=== PATIENT | male | born 1960 | race Caucasian/White ===

== ENCOUNTER 2017-08-13 15:19 | Emergency (ER) | payer BC, SELFPAY ==
[2017-08-13 15:19] VITALS: BP 150/80; PULSE 66; RESP 16; TEMP 36.5; O2SAT 97; BMI 31.6
--- NOTE | 2017-08-13 15:38 | RAD_ITS ---
STUDY: X-RAY - LEFT ANKLE REASON FOR EXAM: Male, 56 years old. Twisted ankle while working in yard TECHNIQUE: 3 view(s) of the ankle. COMPARISON: None. FINDINGS: Normal visualized distal tibia and fibula. Normal medial and lateral malleoli. Normal tibiotalar articulation and ankle mortise. Normal visualized talus and calcaneus. The visualized subtalar, talonavicular, calcaneocuboid and tarsal articulations are normal. The soft tissue structures are unremarkable. RAD/Ankle min 3 Views IMPRESSION: No acute osseous injury is evident. Electronically Signed: Hayden Kauffman MD at 16:16 EDT Tel , Service support ,
--- NOTE | 2017-08-13 15:39 | RAD_ITS ---
STUDY: X-RAY - LEFT TIBIA AND FIBULA REASON FOR EXAM: Male, 56 years old. Twisted ankle TECHNIQUE: 2 view(s) of the tibia and fibula were obtained. COMPARISON: None. FINDINGS: Normal visualized tibia. Normal visualized fibula. Distal tibia and fibula are excluded by collimation. Soft tissue calcifications. RAD/Tibia & Fibula 2 Views IMPRESSION: No acute osseous injury is visible. Electronically Signed: Hayden Kauffman MD at 16:16 EDT Tel , Service support ,
--- NOTE | 2017-08-13 15:42 | ED.DCSUM_ITS ---
- ER Visit Summary Date of Service: 08/13/17 Chief Complaint: [] Left ankle pain History of Present Illness: The patient is a 56 M [] Complaining of left ankle pain after mechanical fall while working in the yard. Reports hearing a pop. Reports inability to ambulate after the injury. Reports previous history of multiple sprained ankles in the past. Physical Examination: [] Afebrile, vital signs stable. 56-year-old male no acute distress. Examination of the left lower extremity shows swelling over the lateral malleolus with tenderness to palpation. There is also tenderness and deformity to the left distal fibula. Patient does report a previous fracture in that area. Neurovascularly intact distally. Test Results: [] Left ankle x-rays: Negative Left tibia/fibula x-rays: Negative Emergency Department Course and Treatment: [] Patient presented with his own crutches. He was provided with an Aircast. He reports taking Avapro from prior to arrival and did not want analgesia. He was instructed to ice and elevate and remain nonweightbearing if he has continued pain. He was encouraged to follow-up with an orthopedic surgeon. Treatment Plan: [] Follow-up with orthopedic surgery. Disposition: [] Discharge, stable. Impression: [] Left ankle sprain This note was generated with [employer] dictation software. It may contain incorrect words, spelling, and punctuation that were not noted in review of the chart prior to signing ED Disposition - Plan for ED Patient: Chief Complaint: Lower Extremity Injury Referrals: Kb Sears MD [Primary Care Provider] -
--- NOTE | 2017-08-13 17:02 | ED.DEP ---
ED Disposition - Plan for ED Patient: Disposition: Home or Assisted Living Chief Complaint: Lower Extremity Injury Instructions: ED Sprain Ankle W X Ray Referrals: Kb Sears MD [Primary Care Provider] -
[2017-08-13 17:24] VITALS: RESP 16
== END 2017-08-13 17:25 | disposition home or self-care (01) ==
PROVIDERS: Emergency Provider Emergency Medicine; Family Provider Family Medicine; PCP Family Medicine
DX: S93.402A Sprain of unspecified ligament of left ankle, initial encounter (principal); W19.XXXA Unspecified fall, initial encounter; Y93.9 Activity, unspecified; Y92.096 Garden or yard of other non-institutional residence as the place of occurrence of the external cause; E11.9 Type 2 diabetes mellitus without complications; F32.9 Major depressive disorder, single episode, unspecified; Z79.84 Long term (current) use of oral hypoglycemic drugs; Z79.899 Other long term (current) drug therapy
CPT/HCPCS: 73590; 73610; 99283

== ENCOUNTER → 2017-12-06 08:15 | Outpatient (CLI) | payer BC, SELFPAY | PROVIDERS: Family Provider Family Medicine; PCP Family Medicine; Visit Provider Family Medicine | DX: R13.10 Dysphagia, unspecified (principal) | CPT/HCPCS: 74220 ==

== ENCOUNTER → 2017-12-08 09:38 | Outpatient (CLI) | payer BC, SELFPAY ==
[2017-12-08 10:03] LABS: Absolute Lymphocyte Count 1.42 X10^3/ul (0.83-4.51); Absolute Neutrophil Count 4.8 X10^3/uL (2.0-7.7); Basophil# 0.03 X10^3/uL; Basophil% 0.4 % (0-1); Eosinophil# 0.14 X10^3/uL; Hematocrit 45.6 % (40-54); Hemoglobin 14.9 g/dl (13.0-16.5); Lymphocyte # 1.42 X10^3/ul (4.0); Lymphocyte % 20.5 % (19-41); Mean Corp Hgb Conc 32.7 g/gl (32-36); Mean Corpuscular Hgb 27.1 pg (27.0-32.0); Mean Corpuscular Volume 82.9 fL (80-94); Mean Platelet Vol. 10.2 fl (6.2-12.0); Monocyte# 0.52 X10^3/uL; Monocyte% 7.5 % (0-10); Neutrophil # 4.81 X10^3/uL (2.7-7.7); Neutrophil % 69.5 % (47-70); Platelet Count 209 K/mm3 (150-450); RBC Distribution Width CV 13.8 % (11.6-14.6); RBC Distribution Width SD 41.6 fl (35.1-43.9); White Blood Count 6.9 K/mm3 (4.4-11.0)
[2017-12-08 10:04] LABS: POSITIVE COUNT NO; POSITIVE DIFFERENTIAL NO; POSITIVE MORPHOLOGY NO
[2017-12-08 10:25] LABS: AST(SGOT) 21 U/L (15-37); Alanine Aminotransfer ALT/SGPT 32 U/L (16-61); Alkaline Phosphatase 48 U/L (45-117); Anion Gap 10 (5-15); BUN 11 mg/dL (7-18); BUN/Creat Ratio 9.2 RATIO (10-20); Calcium,Total 8.9 mg/dL (8.5-10.1); Chloride 103 mmol/L (98-107); Cholesterol 203 mg/dL (200); Creatinine, Serum 1.19 mg/dL (0.70-1.30); EST Glomerular Filtration Rate 67 mL/min (>60); Est Glom Filt Rate - Afr Amer 81 mL/min (>60); Glucose 99 mg/dL (74-106); High Density Lipoprotein 73 mg/dL; Sodium Level 140 mmol/L (136-145); Thyroid Stim Hormone (TSH) 2.18 uIU/mL (0.358-3.74); Triglycerides 70 mg/dL; Very Low Density Lipoprotein 14 mg/dL (5-40)
[2017-12-08 10:32] LABS: Hemoglobin A1c 6.3 % (4.2-6.3)
== END ==
PROVIDERS: Family Provider Family Medicine; PCP Family Medicine; Visit Provider Family Medicine
DX: Z00.00 Encounter for general adult medical examination without abnormal findings (principal); R13.10 Dysphagia, unspecified
CPT/HCPCS: 80053; 80061; 83036; 84443; 85025

== ENCOUNTER → 2018-03-13 08:38 | Outpatient (CLI) | payer BC, SELFPAY ==
[2017-09-30 09:10] VITALS: BMI 32.4
--- NOTE | 2018-03-13 08:42 | RAD_ITS ---
STUDY: X-RAY - LEFT ANKLE REASON FOR EXAM: Male, 57 years old. Pain TECHNIQUE: 3 view(s) of the ankle. COMPARISON: 08/13/2017 FINDINGS: Medial and lateral malleolus with slight cortical irregularity which may represent prior injury without evidence of an acute fracture. There is a minimal plantar spur. There is a small osteophyte suggested anterior to the tibia on the lateral view partially visualized on prior study. Normal medial and lateral malleoli. Normal tibiotalar articulation and ankle mortise. Normal visualized talus . The visualized subtalar, talonavicular, calcaneocuboid and tarsal articulations are normal. The soft tissue structures are unremarkable. RAD/Ankle min 3 Views IMPRESSION: Degenerative change. Possible remote injury of the medial and lateral malleolus. No evidence of an acute fracture. Electronically Signed: Nasima Nguyen MD at 16:49 EST Tel , Service support ,
== END ==
PROVIDERS: Family Provider Family Medicine; PCP Family Medicine; Referring Provider Family Medicine; Visit Provider Family Medicine
DX: M25.572 Pain in left ankle and joints of left foot (principal)
CPT/HCPCS: 73610

== ENCOUNTER → 2018-03-13 08:59 | Outpatient (CLI) | payer BC, SELFPAY ==
[2017-09-30 09:10] VITALS: BMI 32.4
== END ==
PROVIDERS: Family Provider Family Medicine; PCP Family Medicine; Referring Provider Family Medicine; Visit Provider Family Medicine
DX: M25.572 Pain in left ankle and joints of left foot (principal)

== ENCOUNTER → 2018-11-10 | Outpatient (CLI) | payer BC, SELFPAY ==
[2018-11-10 09:40] VITALS: BMI 33.9
--- NOTE | 2018-11-10 10:24 | RAD_ITS ---
STUDY: X-RAY CHEST REASON FOR EXAM: Male, 58 years old. Shortness of breath for several months. TECHNIQUE: 2 views COMPARISON: Prior chest radiograph of July 02, 2010 FINDINGS: The lungs are clear and expanded. There is no demonstrated pleural abnormality. Normal size heart. Normal mediastinum and priscilla. Normal visualized pulmonary arteries. There is atherosclerotic calcification of the aortic arch. Normal visualized thoracic spine. Small plate and screw hardware projects to the right of midline at the first thoracic spine level. Normal visualized ribs, clavicles, and shoulders. There is no demonstrated abnormality of the visualized soft tissue structures of the upper abdomen. RAD/Chest PA and Lateral IMPRESSION: Mild calcifications of the aortic arch. Otherwise normal chest without new consolidation, focal atelectasis, cardiomegaly or pleural effusion. Electronically Signed: Azul Roblero MD at 19:19 EDT , Service support ,
== END | disposition home or self-care (01) ==
LOC: RAD 10:22
PROVIDERS: Family Provider Family Medicine; PCP Family Medicine; Referring Provider Internal Medicine Cardiovascular Disease; Visit Provider Internal Medicine Cardiovascular Disease
DX: R06.00 Dyspnea, unspecified (principal)
CPT/HCPCS: 71046

== ENCOUNTER → 2018-11-22 | Outpatient (CLI) | payer BC, SELFPAY ==
[2018-11-10 09:40] VITALS: BMI 33.9
--- NOTE | 2018-11-22 13:08 | ART_ITS ---
Reason For Study: Pain in right leg Procedure A bilateral lower extremity continuous wave Doppler with analog waveform analysis,segmental pressures,and ankle brachial indexes without exercise. Left Segmental Pressures Left brachial= 145mmHg. Left posterior tibial artery = 171mmHg. Left dorsalis pedis artery = 177mmHg. Left digit = 103 mmHg. The left dorsalis pedis waveforms are triphasic. The left posterior tibial artery waveforms are triphasic. Right Segmental Pressures Right brachial= 144mmHg. Right posterior tibial artery = 178mmHg. Right dorsalis pedis artery = 162mmHg. Right digit = 89 mmHg. The right dorsalis pedis waveforms are triphasic. The right posterior tibial artery waveforms are triphasic. Indices The right ankle brachial index by the dorsalis pedis is 1.12. The right ankle brachial index by the posterior tibial artery is 1.23. The right digital-brachial index is 0.61. The left ankle brachial index by the dorsalis pedis is 1.22. The left ankle brachial index by the posterior tibial artery is 1.18. The left digital-brachial index is 0.71. Interpretation Summary Triphasic Doppler waveforms are noted at ankle level bilaterally. Pulse-volume recording waveform amplitudes appear satisfactory at low-thigh, calf, and ankle levels bilaterally, but diminished at digital level bilaterally. Resting ankle-brachial indices are normal bilaterally. The right digital- brachial index is mildly diminished. The left digital-brachial index is low-normal. Arterial flow appears to be normal to ankle level bilaterally. There is evidence of mild, distal, small-vessel arterial occlusive disease at digital level in the right lower extremity. Arterial flow appears relatively normal at digital level on the left. Ordering Physician: Sridhar Bejarano Referring Physician: Kb Sears MD Performed By: Danielle Wright RVT
== END | disposition home or self-care (01) ==
LOC: CVS 13:06
PROVIDERS: Family Provider Family Medicine; PCP Family Medicine; Referring Provider Physician Assistant; Visit Provider Physician Assistant
DX: M79.661 Pain in right lower leg (principal)
CPT/HCPCS: 93923

== ENCOUNTER → 2018-11-28 | Outpatient (CLI) | payer BC, SELFPAY ==
[2018-11-10 09:40] VITALS: BMI 33.9
--- NOTE | 2018-11-28 06:29 | ECHOCS_ITS ---
Reason For Study: DYSPNEA/SOB Procedure This was a 2D Doppler, Color Flow transthoracic echocardiogram. The study was technically difficult. Contrast injection was performed. Exam performed in department. Left Ventricle Normal LV size. Left ventricular systolic function is normal. The estimated ejection fraction is 60 %. Transmitral doppler flow suggestive of impaired relaxation of left ventricle. No regional wall motion abnormalities noted. Right Ventricle Normal RV size. Normal systolic function. Atria Normal left atrium. Normal right atrium. No doppler evidence for ASD. Bubble contrast study negative for right to left interatrial shunt. Mitral Valve There is no mitral annular calcification. Mild focal mitral valve calcification of the anterior leaflet. Equivocal mitral valve prolapse. Trivial mitral valve insufficiency. Tricuspid Valve Normal tricuspid valve. Trivial tricuspid valve insufficiency. Unable to estimate RV systolic pressure/pulmonary artery pressure due to technically difficult study. Aortic Valve Trisinus/trileaflet aortic valve. Normal aortic valve. Pulmonic Valve The pulmonic valve is not well visualized. Great Vessels Normal sized aortic root. Pericardium/Pleural No pericardial effusion. Medication Diluted definity 3ml given slow IV push to enhance endocardial definition. Performed a rapid injection of agitated mix of 9 cc saline and 1cc air to assess for atrial septal defect. MMode/2D Measurements & Calculations LVIDd: 4.8 cm IVSd: 0.91 cm Ao root diam: 3.2 cm LVIDs: 3.1 cm LVPWd: 0.95 cm RVDd: 3.8 cm FS: 36.4 % LAV(MOD-bp): 59.9 ml LVAd ap4: 37.4 cm2 SV(MOD-sp4): 79.8 ml LAV(MOD-bp) Indexed: 25.3 ml/m2 EDV(MOD-sp4): 128.3 ml LAV(MOD-sp2): 59.3 ml EDV(sp4-el): 135.0 ml LAV(MOD-sp4): 58.7 ml LVAs ap4: 20.3 cm2 ESV(MOD-sp4): 48.5 ml ESV(sp4-el): 47.8 ml EF(MOD-sp4): 62.2 % EF(sp4-el): 64.6 % SV(sp4-el): 87.2 ml LA A4 area: 20.8 cm2 LA dimension(2D): 4.2 cm RA A4 area: 17.2 cm2 Time Measurements MV dec time: 0.24 sec Doppler Measurements & Calculations MV E max dmitriy: 75.2 cm/sec Lat Peak E' Dmitriy: 13.1 cm/sec Med Peak E' Dmitriy: 10.2 cm/sec MV A max dmitriy: 82.9 cm/sec E/E' lat: 5.7 E/E' med: 7.3 MV E/A: 0.91 Ao V2 max: 135.3 cm/sec LV V1 max: 123.4 cm/sec PA V2 max: 103.1 cm/sec Ao max P.3 mmHg LV V1 max P.1 mmHg Interpretation Summary The study was technically difficult. Contrast injection was performed. Left ventricular systolic function is normal. The estimated ejection fraction is 60 %. Mild focal mitral valve calcification of the anterior leaflet. Equivocal mitral valve prolapse. Trivial mitral valve insufficiency. Trivial tricuspid valve insufficiency. Unable to estimate RV systolic pressure/pulmonary artery pressure due to technically difficult study. Transmitral doppler flow suggestive of impaired relaxation of left ventricle Ordering Physician: Kamille^Balaji^^^ Referring Physician: FANNIE LIGHT Performed By: Isa Garcia RDCS
--- NOTE | 2018-11-28 08:57 | STRESSREP_ITS ---
Stress Test Report Date: 11-28-18 Procedure: Pharmacologic stress nuclear imaging study Indications: Shortness of breath/dyspnea on exertion; abnormal ECG (left bundle branch block pattern history) Consent: Per the patient Procedure: The patient underwent pharmacologic (Regadenoson) evaluation with a peak heart rate of 88 beats per minute (54 %predicted maximal heart rate) and a peak blood pressure of 144/84 mmHg. The baseline ECG demonstrated normal sinus rhythm; nonspecific ST/T wave abnormality. The peak pharmacologic ECG demonstrated continued nonspecific ST segment abnormality. There were no cardiac dysrhythmias pretest, during pharmacologic infusion, or recovery. There was no complaint of chest discomfort during pharmacologic infusion or recovery. The examination was discontinued secondary to completion of protocol. Impression: 1. Pharmacologic (Regadenoson) evaluation 2. Peak pharmacologic ECG with continued nonspecific ST segment abnormality. 3. There were no cardiac dysrhythmias pretest, during pharmacologic infusion, or recovery. 4. Nuclear images pending Myocardial perfusion imaging study: Technique: The patient was injected with 14.8 millicuries of technetium 99m Cardiolite and subsequently rest SPECT Cardiolite nuclear imaging was obtained in the horizontal long, vertical long, and short axis views. The patient underwent pharmacologic (Regadenoson) evaluation with a peak heart rate of 88 beats per minute (54 % percent predicted maximal heart rate) and a peak blood pressure of 144/84 mmHg. The patient was injected with 44.8 millicuries of technetium 99m Cardiolite and subsequently stress SPECT Cardiolite nuclear imaging was obtained in the horizontal long, vertical long, and short axis views. A gated Cardiolite study at peak stress was obtained. Interpretation: Rest and stress SPECT Cardiolite nuclear imaging status post realignment, normalization, and attenuation correction demonstrate areas of gastrointestinal/tracer uptake near the inferior segments and an area of subtle diminished tracer uptake in the apical areas at rest which appear to improve and/or normalize following stress appearing compatible with shifting soft tissue attenuation/artifact and/or physiologic apical thinning. There is end systolic thickening and brightening. The gated Cardiolite study demonstrates myocardial thickening and inward wall motion. The reported LVEF is 62 %. Impression: 1. Rest and stress SPECT currently nuclear imaging demonstrate areas of subtle diminished tracer uptake in the apical areas at rest which appear to improve and/or normalize following stress appearing compatible shifting soft tissue attenuation/artifact and/or physiologic apical thinning with no myocardial perfusion changes considered diagnostic for associated stress-induced myocardial ischemia. 2. The gated Cardiolite study reports an LVEF of 62 %. This note was generated with [employer] software. It may contain incorrect words, spelling, and punctuation that were not noted in checking the note before signing.
== END | disposition home or self-care (01) ==
LOC: CVS 06:28
PROVIDERS: Family Provider Family Medicine; PCP Family Medicine; Referring Provider Internal Medicine Cardiovascular Disease; Visit Provider Internal Medicine Cardiovascular Disease
DX: I44.7 Left bundle-branch block, unspecified (principal); I34.1 Nonrheumatic mitral (valve) prolapse; E78.5 Hyperlipidemia, unspecified; R06.00 Dyspnea, unspecified
CPT/HCPCS: 78452; 93017; 93306; A9500; Q9957; A4216; C8929; J2785

== ENCOUNTER → 2019-03-15 10:14 | Outpatient (CLI) | payer BC, SELFPAY ==
[2018-11-10 09:40] VITALS: BMI 33.9
[2019-03-15 12:40] LABS: ALB/GLOB Ratio 1.1 RATIO (0.9-2.4); AST(SGOT) 28 U/L (15-37); Alanine Aminotransfer ALT/SGPT 49 U/L (16-61); Albumin, Serum 4.1 g/dL (3.2-5.0); Alkaline Phosphatase 50 U/L (45-117); Anion Gap 4 (5-15); BUN 13 mg/dL (7-18); BUN/Creat Ratio 11.5 RATIO (10-20); Chloride 103 mmol/L (98-107); Cholesterol 213 mg/dL (200); Creatinine, Serum 1.13 mg/dL (0.70-1.30); EST Glomerular Filtration Rate 71 mL/min (>60); Est Glom Filt Rate - Afr Amer 86 mL/min (>60); Globulin 3.6 g/dL (2.2-4.2); Glucose 97 mg/dL (74-106); High Density Lipoprotein 75 mg/dL; Potassium 4.1 mmol/L (3.5-5.1); Protein, Total 7.7 g/dL (6.4-8.2); Sodium Level 137 mmol/L (136-145); Triglycerides 121 mg/dL; Very Low Density Lipoprotein 24 mg/dL (5-40)
[2019-03-15 12:47] LABS: Hemoglobin A1c 6.4 % (4.2-6.3)
[2019-03-15 14:01] LABS: Microalbumin,Random Urine 5.3 mg/L (NO RANGE EST.); Microalbumin:Creatinine Ratio 3.5 mg/g CRE (<30 mg/g CRE)
== END ==
PROVIDERS: Family Provider Family Medicine; PCP Family Medicine; Referring Provider Family Medicine; Visit Provider Family Medicine
DX: E11.9 Type 2 diabetes mellitus without complications (principal)
CPT/HCPCS: 36415; 80053; 80061; 82043; 82570; 83036

== ENCOUNTER → 2019-07-04 | Outpatient (CLI) | payer BC, SELFPAY ==
[2018-11-10 09:40] VITALS: BMI 33.9
[2019-07-04 17:08] LABS: Cholesterol 201 mg/dL (200); High Density Lipoprotein 71 mg/dL; Triglycerides 66 mg/dL; Very Low Density Lipoprotein 13 mg/dL (5-40)
== END | disposition home or self-care (01) ==
LOC: LABSPEC 16:39
PROVIDERS: PCP Family Medicine; Referring Provider Family Medicine; Visit Provider Family Medicine
DX: E78.5 Hyperlipidemia, unspecified (principal)
CPT/HCPCS: 80061

== ENCOUNTER 2019-12-12 21:08 | Emergency (ER) | payer BC, SELFPAY ==
[2019-11-12 09:33] VITALS: BMI 33.1
[2019-12-12 21:09] VITALS: BP 156/89; PULSE 84; RESP 16; TEMP 36.2; O2SAT 98; BMI 32.3
--- NOTE | 2019-12-12 22:27 | ED.DCSUM_ITS ---
- ER Visit Summary Date of Service: 12/12/19 Chief Complaint: Laceration left forearm] History of Present Illness: The patient is a 59 M [presents to the emergency department after lacerating his left forearm approximately 9 PM. Patient states that he was working with a right angle drill when it got caught in the wood and he dropped it which caused it to fall and land on his left forearm. Patient is right-hand dominant. Patient is up-to-date on tetanus. Patient was not sure if he needs stitches.] Physical Examination: [Left forearm-patient has a 3 cm vertical laceration over the mid forearm that is into the subcutaneous tissues. No active bleeding at this time. He is neurovascular intact distally. He has normal range of motion at the wrist and all digits. No foreign bodies noted within the wound.] Test Results: [None indicated] Emergency Department Course and Treatment: [Laceration repair-wound sterilely draped and prepped. Wound anesthetized locally with 1% lidocaine total of 4 cc. Wound cleansed with Shur-Clens and irrigated with copious saline. Using 4-0 nylon a total of 2 single ruptured sutures placed with good wound edge approximation. Patient tolerated procedure well. Clean dressing applied.] Treatment Plan: [Patient advised to follow-up with primary care physician in 10 days for suture removal. Patient advised to return if worsening pain, redness, swelling, purulent drainage, or condition should worsen anyway.] Disposition: [Discharged home in stable condition] Impression: [Left forearm laceration 3 cm-simple repair] This note was generated with [employer] dictation software. It may contain incorrect words, spelling, and punctuation that were not noted in review of the chart prior to signing ED Disposition - Plan for ED Patient: Referrals: Kb Sears MD [Primary Care Provider] -
[2019-12-12 22:28] VITALS: BP 161/71; PULSE 74; RESP 17; O2SAT 96
--- NOTE | 2019-12-12 22:29 | ED.DEP ---
ED Disposition - Plan for ED Patient: Instructions: ED Laceration Ext Sutr Stap Tape Referrals: Kb Sears MD [Primary Care Provider] - 10 Day for suture removal
== END 2019-12-12 22:33 | disposition home or self-care (01) ==
LOC: ED 22:30
PROVIDERS: Emergency Provider Emergency Medicine; PCP Family Medicine
DX: S51.812A Laceration without foreign body of left forearm, initial encounter (principal); W29.8XXA Contact with other powered hand tools and household machinery, initial encounter; Y93.9 Activity, unspecified; Y92.9 Unspecified place or not applicable; E11.9 Type 2 diabetes mellitus without complications; Z79.84 Long term (current) use of oral hypoglycemic drugs
CPT/HCPCS: 12002; 99282

== ENCOUNTER → 2019-12-14 | Outpatient (CLI) | payer BC, SELFPAY ==
[2019-12-12 21:09] VITALS: BMI 32.3
[2019-12-14 10:05] LABS: ALB/GLOB Ratio 1.1 RATIO (0.9-2.4); AST(SGOT) 27 U/L (15-37); Alanine Aminotransfer ALT/SGPT 38 U/L (16-61); Albumin, Serum 4.1 g/dL (3.2-5.0); Alkaline Phosphatase 50 U/L (45-117); Anion Gap 5 (5-15); BUN 13 mg/dL (7-18); Calcium,Total 9.2 mg/dL (8.5-10.1); Chloride 105 mmol/L (98-107); Cholesterol 206 mg/dL (200); Creatinine, Serum 1.18 mg/dL (0.70-1.30); EST Glomerular Filtration Rate 67 mL/min (>60); Est Glom Filt Rate - Afr Amer 81 mL/min (>60); Globulin 3.8 g/dL (2.2-4.2); Glucose 106 mg/dL (74-106); High Density Lipoprotein 74 mg/dL; Protein, Total 7.9 g/dL (6.4-8.2); Sodium Level 139 mmol/L (136-145); Triglycerides 94 mg/dL; Very Low Density Lipoprotein 19 mg/dL (5-40)
[2019-12-14 10:11] LABS: Hemoglobin A1c 6.1 % (3.8-5.6)
== END | disposition home or self-care (01) ==
LOC: LABSPEC 09:38
PROVIDERS: PCP Family Medicine; Referring Provider Family Medicine; Visit Provider Family Medicine
DX: E11.9 Type 2 diabetes mellitus without complications (principal)
CPT/HCPCS: 80053; 80061; 83036

== ENCOUNTER 2020-07-25 06:29 | Day surgery (SDC) | payer OTHER, SELFPAY ==
[2020-07-25] VITALS (7 sets, daily range): BP systolic 121–135; BP diastolic 67–86; PULSE 57–70; RESP 16–18; TEMP 35.7–36.3; O2SAT 96–100; BMI 33.4
--- NOTE | 2020-07-25 06:48 | PCM.HP.STD ---
Problem List (1) Personal history of colonic polyps Status: Acute History of Present Illness Date of Admission: 07/25/20 The patient is a 59 year old M who presents for a colonoscopy today. He presents via open access. Has a personal history of colon polyps. He denies bright red blood per rectum or melena. No unexpected weight change. He has avoided COVID-19. Past Medical History Past Medical History (Chronic Problems): Chronic Problems (Last Reviewed 11/12/19 @ 09:36 by Una Sheets) Type 2 diabetes mellitus (Chronic) Nonrheumatic mitral (valve) prolapse (Chronic) Hyperlipidemia (Chronic) Medical History: Medical History (Last Reviewed 11/12/19 @ 09:36 by Una Sheets) Type 2 diabetes mellitus (Chronic) E11.9 LBBB (left bundle branch block) (Acute) I44.7 Nonrheumatic mitral (valve) prolapse (Chronic) I34.1 Hyperlipidemia (Chronic) E78.5 GERD (gastroesophageal reflux disease) K21.9 Allergies hydrocodone bitartrate [From Vicodin] Allergy (Verified 07/25/20 06:45) Swelling oxycodone HCl [From Percocet] Allergy (Verified 07/25/20 06:45) Other minocycline Adverse Reaction (Unknown, Verified 07/25/20 06:45) Unknown Home Medications: Ambulatory Orders Medication Instructions Recorded Cetirizine HCl [Zyrtec] 10 mg PO DAILY 08/13/17 Escitalopram Oxalate [Lexapro] 5 mg PO DAILY 08/13/17 multivitamin 1 tab PO QDAY 09/28/17 metformin 500 mg tablet 500 mg PO BID tab 11/10/18 Cholecalciferol (Vitamin D3) 25 mcg PO DAILY 07/22/20 [Vitamin D3] Surgical History: Surgical History (Last Reviewed 11/12/19 @ 09:36 by Una Sheets) History of inguinal hernia repair Z98.890, Z87.19 History of shoulder surgery Z98.890 History of spinal surgery Z98.890 History of vasectomy Z98.52 Smoking Status: Never smoker Tobacco Use: Non-smoker Review of Systems Constitutional: Denies: Fever Cardiovascular: Denies: Chest Pain Respiratory: Denies: Cough Gastrointestinal: Denies: Abdominal Pain, Melena Endocrine: Denies: Change in Body Habitus VTE Information - Inpt Only VTE Present on Admission: No - Physical Exam Vitals/I&O's: Body Mass Index (BMI) 32.3 General: Alert, Oriented x3, Cooperative, No apparent distress Oral: Moist Mucosa Lungs: Clear to auscultation, Normal air movement Cardiovascular: Regular rate, Regular Rhythm Abdomen: Soft, Non Tender Psych/Mental Status: Normal Affect Microbiology Past 72 Hours 07/24/20 12:15 Interface Orders SARS-CoV-2 Antigen (Rapid) - Final Assessment/Plan All Active Problems (Last Reviewed 11/12/19 @ 09:36 by Una Sheets) Personal history of colonic polyps (Acute) LBBB (left bundle branch block) (Acute) I recommended the patient a colonoscopy with possible biopsy or polypectomy as indicated. As noted he is presenting via open access. He is aware of the technique, benefit, risk, alternatives. He has had an opportunity to ask and have questions answered. We will proceed as noted. Chavez Maradiaga M.D., F.A.C.S.
[2020-07-25] MEDS: Lactated Ringers 1,000 ML 100 ML IV (07:14)
--- NOTE | 2020-07-25 07:30 | COLBX_PTH ---
PATIENT: ARSH ASIF LOC: EN U#:[id number] AGE/SX: 59/M ROOM: RE07/25/[address]: Dr. Chavez Maradiaga MD : 1960 BED: DIS: 07/25/2020 SPEC #: [id number] RECD: 07/25/20 12:08 STATUS: PASQUALE BECKKeith #: [id number] MONICA: 07/25/20 07:[address]: Chavez Maradiaga DEPT: SURGICAL PATHOLOGY RECD BY: Nicolasa Doll ENTERED: 07/25/20 12:54 SP TYPE: COLON BX OTHR DR: Dr. Kb Sears MD Tissues: Transverse colon Procedures: Surgery Specimen Level IV HEADER OPERATION: Colonoscopy ? open access (MAC) PRE-OP DIAGNOSIS: Colonic polyps TISSUE SUBMITTED: Distal transverse polyp MICROSCOPIC DIAGNOSIS Distal transverse colon polyp, biopsy: Fragments of tubular adenoma. AM:vikki 07/28/2020 MICROSCOPIC DESCRIPTION Slides are reviewed. GROSS DESCRIPTION Received in fixative is one container labeled with the patient's name and designated distal transverse polyp. The specimen consists of two irregular fragments of light wang soft tissue that in aggregate measure 0.6 x 0.5 x 0.1 cm. The specimen is totally submitted in one cassette. / SJ:vikki 07/25/20 TC:5 CPT: 35310
[2020-07-25 07:40] LABS: Bedside Glucose 113 mg/dL (70-110)
--- NOTE | 2020-07-25 08:01 | OP.CCLET_ITS ---
07/25/2020 Kb Sears [address] [place] [address] Re : Colonoscopy procedure for Zak Kellogg Dear Dr. Sears This procedure was performed on Saturday, July 25, 2020. My impressions and recommendations are as follows: Impressions : - Hemorrhoids found on perianal exam. - One 5 mm polyp in the distal transverse colon, removed with a cold biopsy forceps. Resected and retrieved. - Diverticulosis in the sigmoid colon. Recommendations : - Discharge patient to home. - Resume previous diet. - Continue present medications. - Repeat colonoscopy in 5 years for surveillance based on pathology results. - Telephone my office for pathology results in 1 week. My findings are described in the full procedure note, which is enclosed. If I can be of further assistance, please feel free to contact me at Doctor phone number(s): Work: . Sincerely, Chavez Maradiaga MD 07/25/2020 8:01:04 AM This report has been signed electronically.
--- NOTE | 2020-07-25 08:01 | OP.COLON_ITS ---
Patient Name: Zak Kellogg Procedure Date: 07/25/2020 7:33 AM Date of : 1960 Age: 59 Procedure: Colonoscopy Indications: High risk colon cancer surveillance: Personal history of colonic polyps Providers: Chavez Maradiaga MD Referring MD: Kb Sears Medicines: See the Anesthesia note for documentation of the administered medications Patient Profile: Last Colonoscopy: 5 years ago. Complications: No immediate complications. Procedure: Pre-Anesthesia Assessment: - Prior to the procedure, a History and Physical was performed, and patient medications and allergies were reviewed. The patient's tolerance of previous anesthesia was also reviewed. The risks and benefits of the procedure and the sedation options and risks were discussed with the patient. All questions were answered, and informed consent was obtained. Prior Anticoagulants: The patient has taken no previous anticoagulant or antiplatelet agents. ASA Grade Assessment: II - A patient with mild systemic disease. After reviewing the risks and benefits, the patient was deemed in satisfactory condition to undergo the procedure. After I obtained informed consent, the scope was passed under direct vision. Throughout the procedure, the patient's blood pressure, pulse, and oxygen saturations were monitored continuously. The adult colonoscope was introduced through the anus and advanced to the cecum, identified by appendiceal orifice and ileocecal valve. The colonoscopy was performed without difficulty. The patient tolerated the procedure well. The quality of the bowel preparation was good. The ileocecal valve and the appendiceal orifice were photographed. Scope In: 7:41:32 AM Scope Withdrawal Time 0 hours 9 minutes 10 seconds Scope Out: 7:56:24 AM Total Procedure Duration Time 0 hours 14 minutes 52 seconds Findings: Hemorrhoids were found on perianal exam. slightly enlarged. No mass A 5 mm polyp was found in the distal transverse colon. The polyp was sessile. The polyp was removed with a cold biopsy forceps. Resection and retrieval were complete. Scattered diverticula were found in the sigmoid colon. Impression: - Hemorrhoids found on perianal exam. - One 5 mm polyp in the distal transverse colon, removed with a cold biopsy forceps. Resected and retrieved. - Diverticulosis in the sigmoid colon. Recommendation: - Discharge patient to home. - Resume previous diet. - Continue present medications. - Repeat colonoscopy in 5 years for surveillance based on pathology results. - Telephone my office for pathology results in 1 week. Procedure Code(s): --- Professional --- 21352, Colonoscopy, flexible; with biopsy, single or multiple Diagnosis Code(s): --- Professional --- Z86.010, Personal history of colonic polyps K64.9, Unspecified hemorrhoids D12.3, Benign neoplasm of transverse colon (hepatic flexure or splenic flexure) K57.30, Diverticulosis of large intestine without perforation or abscess without bleeding CPT copyright 2017 [employer]. All rights reserved. The codes documented in this report are preliminary and upon director selection and administration review may be revised to meet current compliance requirements. Chavez Maradiaga MD 07/25/2020 8:01:04 AM This report has been signed electronically. Number of Addenda: 0 Note Initiated On: 07/25/2020 7:33 AM
== END 2020-07-25 08:45 | disposition home or self-care (01) ==
LOC: EN 06:29 → AC 06:30
PROVIDERS: PCP Family Medicine; Referring Provider Family Medicine; Visit Provider Surgery
PROC: 0DJD8ZZ Inspection of Lower Intestinal Tract, Via Natural or Artificial Opening Endoscopic (ICD-10-PCS; CPT 45378; principal; 2020-07-25 07:25)
DX: D12.3 Benign neoplasm of transverse colon (principal); K57.30 Diverticulosis of large intestine without perforation or abscess without bleeding; K64.9 Unspecified hemorrhoids; Z86.010 Personal history of colon polyps; K21.9 Gastro-esophageal reflux disease without esophagitis; F41.9 Anxiety disorder, unspecified; E11.9 Type 2 diabetes mellitus without complications; E78.5 Hyperlipidemia, unspecified; I34.1 Nonrheumatic mitral (valve) prolapse; I44.7 Left bundle-branch block, unspecified; Z98.1 Arthrodesis status; Z79.84 Long term (current) use of oral hypoglycemic drugs; Z79.899 Other long term (current) drug therapy
CPT/HCPCS: 45380; 82962; 87426; 88305; C9803; J7120; J2405

== ENCOUNTER → 2020-12-24 10:50 | Outpatient (CLI) | payer OTHER, SELFPAY ==
--- NOTE | 2020-12-24 10:54 | ART_ITS ---
Reason For Study: Pain of right anterior lower extremity Procedure A bilateral lower extremity continuous wave Doppler with analog waveform analysis,segmental pressures,and ankle brachial indexes with exercise. Left Segmental Pressures Left brachial= 146mmHg. Left posterior tibial artery = 171mmHg. Left dorsalis pedis artery = 166mmHg. Left digit = 136 mmHg. The left dorsalis pedis waveforms are triphasic. The left posterior tibial artery waveforms are triphasic. Right Segmental Pressures Right brachial= 147mmHg. Right posterior tibial artery = 179mmHg. Right dorsalis pedis artery = 180mmHg. Right digit = 106 mmHg. The right dorsalis pedis waveforms are triphasic. The right posterior tibial artery waveforms are triphasic. Indices The right ankle brachial index by the dorsalis pedis is 1.22. The right ankle brachial index by the posterior tibial artery is 1.22. The right digital-brachial index is 0.72. The right post exercise ankle brachial index is 1.10. The left ankle brachial index by the dorsalis pedis is 1.13. The left ankle brachial index by the posterior tibial artery is 1.16. The left digital-brachial index is 0.93. The left post exercise ankle brachial index is 1.18. VL/Ankle Brachial Index Interpretation Summary Triphasic Doppler waveforms are noted at ankle level bilaterally. Pulse-volume recordings appear satisfactory bilaterally. Resting ankle-brachial indices are normal bilaterally . Digital-brachial indices are normal bilaterally. The patient was ambulated on a treadmill for 5 minutes at 2 MPH and a 5% grade. Ankle pressures augmented bilaterally within 3 minutes following ce ssation of exercise, a normal physiological response. There is no evidence of significant arterial occlusive disease in the lower ext remities bilaterally. Ordering Physician: Kb Sears Referring Physician: Kb Sears Performed By: Danielle Wright RVT
== END ==
PROVIDERS: PCP Family Medicine; Referring Provider Family Medicine; Visit Provider Family Medicine
DX: M79.604 Pain in right leg (principal)
CPT/HCPCS: 93922

== ENCOUNTER → 2021-01-22 | Outpatient (CLI) | payer OTHER, SELFPAY ==
[2021-01-22 11:11] LABS: Absolute Lymphocyte Count 1.48 X10^3/uL (0.83-4.51); Absolute Neutrophil Count 4.4 X10^3/uL (2.0-7.7); Basophil# 0.04 X10^3/uL; Basophil% 0.6 % (0-1); Eosinophil# 0.11 X10^3/uL; Eosinophils% 1.7 % (0-5); Hematocrit 46.4 % (40-54); Lymphocyte # 1.48 X10^3/ul (0.83-4.51); Lymphocyte % 22.4 % (19-41); Mean Corp Hgb Conc 32.3 g/dL (32-36); Mean Corpuscular Hgb 26.5 pg (27.0-32.0); Mean Corpuscular Volume 81.8 fL (80-94); Mean Platelet Vol. 10.7 fl (6.2-12.0); Monocyte# 0.58 X10^3/uL; Monocyte% 8.8 % (0-10); NRBC Flagged by Analyzer 0 % (0-5); Neutrophil # 4.35 X10^3/uL (2.7-7.7); Neutrophil % 65.9 % (47-70); Platelet Count 271 K/mm3 (150-450); RBC Distribution Width CV 13.7 % (11.6-14.6); Red Blood Count 5.67 M/mm3 (4.6-6.2); White Blood Count 6.6 K/mm3 (4.4-11.0)
[2021-01-22 11:28] LABS: ALB/GLOB Ratio 1.1 RATIO (0.9-2.4); AST(SGOT) 28 U/L (15-37); Alanine Aminotransfer ALT/SGPT 46 U/L (16-61); Albumin, Serum 4.1 g/dL (3.2-5.0); Alkaline Phosphatase 51 U/L (45-117); Anion Gap 5 (5-15); BUN 14 mg/dL (7-18); BUN/Creat Ratio 11.9 RATIO (10-20); Calcium,Total 9.7 mg/dL (8.5-10.1); Chloride 101 mmol/L (98-107); Cholesterol 219 mg/dL (200); Creatinine, Serum 1.18 mg/dL (0.70-1.30); EST Glomerular Filtration Rate 67 mL/min (>60); Est Glom Filt Rate - Afr Amer 81 mL/min (>60); Globulin 3.9 g/dL (2.2-4.2); Glucose 106 mg/dL (74-106); High Density Lipoprotein 74 mg/dL; Potassium 4.1 mmol/L (3.5-5.1); Sodium Level 136 mmol/L (136-145); Triglycerides 105 mg/dL; Very Low Density Lipoprotein 21 mg/dL (5-40)
== END | disposition home or self-care (01) ==
LOC: LABSPEC 10:44
PROVIDERS: PCP Family Medicine; Visit Provider Family Medicine
DX: E11.9 Type 2 diabetes mellitus without complications (principal); M79.604 Pain in right leg
CPT/HCPCS: 80053; 80061; 85025

== ENCOUNTER → 2021-02-12 07:26 | Outpatient (CLI) | payer OTHER, SELFPAY ==
--- NOTE | 2021-02-12 07:41 | MRI_ITS ---
STUDY: MRI LOWER EXTREMITY RIGHT TIBIA/FIBULA WITH AND WITHOUT CONTRAST REASON FOR EXAM: Pain in lower right leg increasing with activity, palpable lump at the lateral aspect of the right lower leg for at least 2 years. TECHNIQUE: Standardized fat and water weighted pulse sequences were obtained in all 3 orthogonal planes, post contrast administration. IV 23ml Dotarem was administered for the contrast portion of the examination. COMPARISON: None. FINDINGS: Normal visualized tibia and fibula, without a periosteal, cortical or cancellous marrow abnormality. There is focal fat at the peripheral aspect of the peroneal muscles beneath the myocutaneous fascial plane corresponding to the skin markers (T1 axial images 1-17; T1 coronal images 11, 12). Otherwise, unremarkable visualized muscle groups of the lower leg without intramuscular edema. There is mild circumferential edema in the subcutis adipose space of the lower leg (inversion recovery axial images 8-26). There is no solid, cystic or lipomatous mass lesion of the subcutis adipose space. There is no abnormal contrast enhancement. MRI/Lower Ext No Joint W/WO Cont IMPRESSION: Focal fat at the peripheral aspect of the peroneal muscles beneath myocutaneous fascial plane corresponding to the skin markers. Mild circumferential edema in the subcutis adipose space of the lower leg. Electronically Signed: Patel Elias MD at 9:44 EST Tel , Service support ,
== END ==
PROVIDERS: PCP Family Medicine; Referring Provider Podiatrist; Visit Provider Podiatrist
DX: D49.2 Neoplasm of unspecified behavior of bone, soft tissue, and skin (principal)
CPT/HCPCS: 73720; A9575

== ENCOUNTER 2021-04-13 08:19 | Outpatient (CLI) | payer BC, SELFPAY ==
--- NOTE | 2021-04-13 08:34 | EKG12_ITS ---
Test Reason : PREOP Blood Pressure : / mmHG Vent. Rate : 063 BPM Atrial Rate : 063 BPM P-R Int : 234 ms QRS Dur : 092 ms QT Int : 414 ms P-R-T Axes : 044 -53 027 degrees QTc Int : 423 ms Sinus rhythm with 1st degree A-V block Left anterior fascicular block Abnormal ECG Poor R wave progression Confirmed by SHAHNAZ GRIFFIN, MOLLY ([id number]), general expeditor HEMANTH MARCELO ([id number]) on 04/14/2021 1:42:14 PM Referred By: Asim Armenta Confirmed By:MOLLY CHRISTIE MD
[2021-04-13 09:35] LABS: Hematocrit 43.4 % (40-54); Hemoglobin 14.4 g/dL (13.0-16.5); Mean Corp Hgb Conc 33.2 g/dL (32-36); Mean Corpuscular Hgb 27.1 pg (27.0-32.0); Mean Corpuscular Volume 81.7 fL (80-94); Mean Platelet Vol. 10.5 fl (6.2-12.0); Platelet Count 232 K/mm3 (150-450); RBC Distribution Width CV 13.8 % (11.6-14.6); RBC Distribution Width SD 40.9 fl (35.1-43.9); Red Blood Count 5.31 M/mm3 (4.6-6.2); White Blood Count 7.5 K/mm3 (4.4-11.0)
[2021-04-13 10:07] LABS: Anion Gap 6 (5-15); BUN 14 mg/dL (7-18); BUN/Creat Ratio 13.1 RATIO (10-20); Calcium,Total 9.1 mg/dL (8.5-10.1); Chloride 99 mmol/L (98-107); Creatinine, Serum 1.07 mg/dL (0.70-1.30); EST Glomerular Filtration Rate 75 mL/min (>60); Est Glom Filt Rate - Afr Amer 91 mL/min (>60); Glucose 172 mg/dL (74-106); Potassium 3.7 mmol/L (3.5-5.1); Sodium Level 136 mmol/L (136-145)
== END 2021-04-13 23:59 | disposition short-term general hospital (02) ==
LOC: PSN 08:21
PROVIDERS: PCP Family Medicine; Referring Provider Physician Assistant Surgical; Visit Provider Physician Assistant Surgical
DX: Z01.810 Encounter for preprocedural cardiovascular examination (principal)
CPT/HCPCS: 36415; 80048; 85027; 93005

== ENCOUNTER 2021-04-22 15:06 | Outpatient (CLI) | payer BC, SELFPAY ==
--- NOTE | 2021-04-22 | MASS_PTH ---
PATIENT: ZAK ASIF [facility] U#:[id number] AGE/SX: 60/M ROOM: RE04/22/[address]: Dr. Zak Andrew DO : 1960 BED: DIS: 04/22/2021 SPEC #: [id number] RECD: 04/22/21 14:54 STATUS: [place]QUALE REKeith #: [id number] MONICA: 04/22/21 00:[address]: Zak Andrew DEPT: SURGICAL PATHOLOGY RECD BY: Darrell Fernández ENTERED: 04/23/21 12:23 SP TYPE: Mass OTHR DR: Dr. Kb Sears MD [facility] Tissues: Leg, NOS Procedures: Surgery Specimen Level III HEADER OPERATION: Excision fatty tumor right leg, fasciotomy and decompression of sural nerve PRE-OP DIAGNOSIS: Injury right lower leg with tear and fascia TISSUE SUBMITTED: Fatty tumor right leg MICROSCOPIC DIAGNOSIS Tumor right leg, excision: Consistent with traumatic neuroma. SJ:vikki 04/24/2021 COMMENT Case has been reviewed in consultation with Dr. Yepez who concurs with the above diagnosis. IDC:AM MICROSCOPIC DESCRIPTION Slides are reviewed. GROSS DESCRIPTION Received is one container labeled with the patient's name and not further designated. The specimen consists of an irregular piece of wang-pink soft tissue measuring 2 x 1.5 x 0.5 cm. The entire specimen is submitted in one cassette. / JEFF:vikki 04/23/2021 TC:5 CPT: 30214
== END 2021-04-22 23:59 | disposition short-term general hospital (02) ==
LOC: LABSPEC 15:08
PROVIDERS: PCP Family Medicine; Visit Provider Orthopaedic Surgery
DX: S89.91XA Unspecified injury of right lower leg, initial encounter (principal)
CPT/HCPCS: 88304; 88305

== ENCOUNTER → 2021-09-24 | Outpatient (CLI) | payer BC, SELFPAY ==
[2021-09-24 10:53] LABS: Hemoglobin A1c 6.5 % (3.8-5.6)
[2021-09-24 11:06] LABS: Microalbumin,Random Urine 8.3 mg/L (NO RANGE EST.); Microalbumin:Creatinine Ratio 3.2 mg/g CRE (<30 mg/g CRE)
[2021-09-24 11:10] LABS: ALB/GLOB Ratio 1.1 RATIO (0.9-2.4); AST(SGOT) 25 U/L (15-37); Alanine Aminotransfer ALT/SGPT 41 U/L (16-61); Alkaline Phosphatase 52 U/L (45-117); Anion Gap 8 (5-15); BUN 15 mg/dL (7-18); BUN/Creat Ratio 13.3 RATIO (10-20); Calcium,Total 9.2 mg/dL (8.5-10.1); Chloride 101 mmol/L (98-107); Cholesterol 175 mg/dL (200); Creatinine, Serum 1.13 mg/dL (0.70-1.30); EST Glomerular Filtration Rate 70 mL/min (>60); Est Glom Filt Rate - Afr Amer 85 mL/min (>60); Globulin 3.5 g/dL (2.2-4.2); Glucose 112 mg/dL (74-106); High Density Lipoprotein 73 mg/dL; PSA,Total- Diagnostic 3.61 ng/mL (0.0-4.0); Potassium 3.9 mmol/L (3.5-5.1); Protein, Total 7.5 g/dL (6.4-8.2); Sodium Level 137 mmol/L (136-145); Triglycerides 96 mg/dL; Very Low Density Lipoprotein 19 mg/dL (5-40)
== END | disposition home or self-care (01) ==
LOC: LABSPEC 10:18
PROVIDERS: PCP Family Medicine; Visit Provider Family Medicine
DX: Z00.00 Encounter for general adult medical examination without abnormal findings (principal); E11.9 Type 2 diabetes mellitus without complications; I10 Essential (primary) hypertension
CPT/HCPCS: 80053; 80061; 82043; 82570; 83036; 84153

== ENCOUNTER 2022-03-05 07:16 | Outpatient (CLI) | payer BC, SELFPAY ==
--- NOTE | 2022-03-05 07:27 | MRI_ITS ---
EXAM: MR RIGHT LOWER EXTREMITY WITHOUT INTRAVENOUS CONTRAST, FOOT CLINICAL INDICATION: PLANTAR FASCIAL FIBROMATOSIS TECHNIQUE: Multiplanar and multisequence MR images of the right foot without intravenous contrast. This report was created using Canvas report Fastr technology. COMPARISON: None. FINDINGS: LIGAMENTS: MEDIAL COLLATERAL: Unremarkable. Intact. LATERAL COLLATERAL: Unremarkable. Intact. LISFRANC: Unremarkable. Intact. TENDONS: FLEXOR: Unremarkable. Intact. EXTENSOR: Unremarkable. Intact. PERONEAL: Unremarkable. Intact. TIBIALIS ANTERIOR: Unremarkable. Intact. TIBIALIS POSTERIOR: Unremarkable. Intact. MUSCLES: Unremarkable. No edema or myositis. FLUID: No organized fluid collections. PLANTAR FASCIA: Unremarkable. Intact. BONES/JOINTS: No marrow signal alterations. Normal forefoot alignment. No fracture. No joint effusion. OTHER SOFT TISSUES: Unremarkable. OTHER FINDINGS: No evidence for plantar fibroma or fibromatosis. Extensor and flexor are normal. Neurovascular structures are normal. Irregular soft tissue loss may represent a chronic ulcer along the medial aspect of the first digit. Correlate with physical exam findings. MRI/Lower Ext/No Jt/w/o IMPRESSION: No evidence for plantar fibroma or fibromatosis. No other significant internal derangement. Electronically Signed: Darin Barth MD at 4:06 EST ,
== END 2022-03-05 23:59 | disposition home or self-care (01) ==
PROVIDERS: PCP Family Medicine; Referring Provider Podiatrist; Visit Provider Podiatrist
DX: M72.2 Plantar fascial fibromatosis (principal)
CPT/HCPCS: 73718

== ENCOUNTER → 2022-10-22 | Outpatient (CLI) | payer BC, SELFPAY ==
[2022-10-22 10:52] LABS: Absolute Neutrophil Count 6.5 X10^3/uL (2.0-7.7); Basophil# 0.03 X10^3/uL; Basophil% 0.3 % (0-1); Eosinophil# 0.18 X10^3/uL; Eosinophils% 2.1 % (0-5); Lymphocyte % 16.1 % (19-41); Mean Corp Hgb Conc 32.6 g/dL (32-36); Mean Corpuscular Hgb 26.8 pg (27.0-32.0); Mean Corpuscular Volume 82.1 fL (80-94); Mean Platelet Vol. 9.8 fl (6.2-12.0); Monocyte# 0.61 X10^3/uL; NRBC Flagged by Analyzer 0 % (0-5); Neutrophil # 6.45 X10^3/uL (2.7-7.7); Neutrophil % 74.3 % (47-70); Platelet Count 248 K/mm3 (150-450); RBC Distribution Width CV 14.4 % (11.6-14.6); RBC Distribution Width SD 42.7 fl (35.1-43.9); White Blood Count 8.7 K/mm3 (4.4-11.0)
[2022-10-22 11:34] LABS: AST(SGOT) 20 U/L (15-37); Alanine Aminotransfer ALT/SGPT 38 U/L (16-61); Alkaline Phosphatase 58 U/L (45-117); Anion Gap 6 (5-15); BUN 18 mg/dL (7-18); BUN/Creat Ratio 17.1 RATIO (10-20); Calcium,Total 9.5 mg/dL (8.5-10.1); Chloride 101 mmol/L (98-107); Cholesterol 168 mg/dL (200); Creatinine, Serum 1.05 mg/dL (0.70-1.30); EST Glomerular Filtration Rate 76 mL/min (>60); Est Glom Filt Rate - Afr Amer 92 mL/min (>60); Globulin 3.9 g/dL (2.2-4.2); Glucose 105 mg/dL (74-106); High Density Lipoprotein 85 mg/dL; PSA,Total- Diagnostic 3.56 ng/mL (0.0-4.0); Potassium 4.4 mmol/L (3.5-5.1); Protein, Total 7.9 g/dL (6.4-8.2); Sodium Level 137 mmol/L (136-145); Thyroid Stim Hormone (TSH) 1.87 uIU/mL (0.358-3.74); Triglycerides 63 mg/dL; Very Low Density Lipoprotein 13 mg/dL (5-40)
== END | disposition home or self-care (01) ==
LOC: MFPLAB 09:33
PROVIDERS: PCP Family Medicine; Visit Provider Family Medicine
DX: Z12.5 Encounter for screening for malignant neoplasm of prostate (principal); E11.22 Type 2 diabetes mellitus with diabetic chronic kidney disease
CPT/HCPCS: 36415; 80053; 80061; 84153; 84443; 85025

== ENCOUNTER → 2023-02-08 | Outpatient (CLI) | payer BC, SELFPAY | END | disposition home or self-care (01) | LOC: SL 20:01 | PROVIDERS: PCP Family Medicine; Referring Provider Nurse Practitioner Gerontology; Visit Provider Nurse Practitioner Gerontology | DX: G47.10 Hypersomnia, unspecified (principal) | CPT/HCPCS: 95810 ==

== ENCOUNTER → 2023-02-21 | Outpatient (CLI) | payer BC, SELFPAY ==
--- NOTE | 2023-02-21 10:02 | ECHOD_ITS ---
Version 2 Reason For Study: Mitral Valve Prolapse Procedure This was a 2D Doppler, Color Flow transthoracic echocardiogram. Exam performed in department. Left Ventricle Normal LV size. Left ventricular systolic function is normal. The estimated ejection fraction is 55 %. Stage 1 diastolic dysfunction. No regional wall motion abnormalities noted. Right Ventricle Normal RV size. Normal systolic function. Mitral Valve Normal mitral valve. Tricuspid Valve Normal tricuspid valve. Mild tricuspid valve insufficiency. Pulmonary artery systolic pressure is 25 mmHg. Pulmonic Valve The pulmonic valve is not well visualized. Great Vessels Normal aortic root. The pulmonary artery is normal size. Inferior vena cava collapse with respiration. Pericardium/Pleural No pericardial effusion. MMode/2D Measurements & Calculations LVIDd: 4.8 cm IVSd: 0.95 cm Ao root diam: 3.1 cm LVIDs: 3.1 cm LVPWd: 0.92 cm LA dimension: 4.2 cm RVDd: 4.5 cm FS: 36.1 % LAV(MOD-bp): 59.9 ml LA A4 area: 20.2 cm2 RA A4 area: 18.1 cm2 LAV(MOD-bp) Indexed: 25.1 ml/m2 LAV(MOD-sp2): 66.4 ml LAV(MOD-sp4): 49.5 ml TAPSE: 2.0 cm Time Measurements MV dec time: 0.14 sec Doppler Measurements & Calculations MV E max dmitriy: 74.5 cm/sec Lat Peak E' Dmitriy: 12.9 cm/sec Med Peak E' Dmitriy: 10.2 cm/sec MV A max dmitriy: 92.3 cm/sec E/E' lat: 5.8 E/E' med: 7.3 MV E/A: 0.81 MV V2 max: 102.0 cm/sec MV P1/2t max dmitriy: 94.9 cm/sec Ao V2 max: 120.7 cm/sec MV max P.2 mmHg MV P1/2t: 52.8 msec Ao max P.8 mmHg MV V2 mean: 51.8 cm/sec MV dec slope: 526.5 cm/sec2 Ao V2 mean: 90.5 cm/sec MV mean P.3 mmHg Ao mean P.6 mmHg MV V2 VTI: 29.7 cm MVA(P1/2t): 4.2 cm2 Ao V2 VTI: 30.2 cm AV (velocity ratio): 0.85 LV V1 max: 105.1 cm/sec PA V2 max: 92.2 cm/sec TR max dmitriy: 232.2 cm/sec LV V1 max P.4 mmHg PA V2 mean: 68.3 cm/sec TR max P.6 mmHg LV V1 mean P.7 mmHg LV V1 mean: 77.7 cm/sec LV V1 VTI: 25.5 cm ECHO/Echo Complete Interpretation Summary Normal LV size. Left ventricular systolic function is normal. The estimated ejection fraction is 55 %. Stage 1 diastolic dysfunction. Pulmonary artery systolic pressure is 25 mmHg. Normal mitral valve. Ordering Physician: Minnie Little Referring Physician: Kb Sears MD Performed By: Antelmo Ruffin RCS
== END | disposition home or self-care (01) ==
PROVIDERS: PCP Family Medicine; Referring Provider Nurse Practitioner Gerontology; Visit Provider Nurse Practitioner Gerontology
DX: I34.1 Nonrheumatic mitral (valve) prolapse (principal)
CPT/HCPCS: 93306

== ENCOUNTER → 2023-04-25 | Outpatient (CLI) | payer BC, SELFPAY ==
[2023-04-25 10:20] LABS: Absolute Lymphocyte Count 1.56 X10^3/uL (0.83-4.51); Absolute Neutrophil Count 4.3 X10^3/uL (2.0-7.7); Basophil# 0.04 X10^3/uL; Basophil% 0.6 % (0-1); Eosinophil# 0.08 X10^3/uL; Eosinophils% 1.2 % (0-5); Hematocrit 45.3 % (40-54); Hemoglobin 14.6 g/dL (13.0-16.5); Lymphocyte # 1.56 X10^3/ul (0.83-4.51); Mean Corp Hgb Conc 32.2 g/dL (32-36); Mean Corpuscular Hgb 26.3 pg (27.0-32.0); Mean Corpuscular Volume 81.6 fL (80-94); Mean Platelet Vol. 10.4 fl (6.2-12.0); Monocyte# 0.53 X10^3/uL; Monocyte% 8.2 % (0-10); NRBC Flagged by Analyzer 0 % (0-5); Neutrophil # 4.27 X10^3/uL (2.7-7.7); Neutrophil % 65.7 % (47-70); Platelet Count 250 K/mm3 (150-450); RBC Distribution Width CV 13.8 % (11.6-14.6); RBC Distribution Width SD 40.5 fl (35.1-43.9); Red Blood Count 5.55 M/mm3 (4.6-6.2); White Blood Count 6.5 K/mm3 (4.4-11.0)
[2023-04-25 10:35] LABS: Microalbumin,Random Urine 8.2 mg/L (NO RANGE EST.); Microalbumin:Creatinine Ratio 3.7 mg/g CRE (<30 mg/g CRE)
[2023-04-25 10:40] LABS: ALB/GLOB Ratio 1.1 RATIO (0.9-2.4); AST(SGOT) 27 U/L (15-37); Alanine Aminotransfer ALT/SGPT 41 U/L (16-61); Albumin, Serum 3.9 g/dL (3.2-5.0); Alkaline Phosphatase 52 U/L (45-117); Anion Gap 4 (5-15); BUN 17 mg/dL (7-18); BUN/Creat Ratio 15.5 RATIO (10-20); Calcium,Total 9.4 mg/dL (8.5-10.1); Chloride 102 mmol/L (98-107); EST Glomerular Filtration Rate 72 mL/min (>60); Est Glom Filt Rate - Afr Amer 87 mL/min (>60); Globulin 3.6 g/dL (2.2-4.2); Glucose 131 mg/dL (74-106); Potassium 4.3 mmol/L (3.5-5.1); Protein, Total 7.5 g/dL (6.4-8.2); Sodium Level 135 mmol/L (136-145)
== END | disposition home or self-care (01) ==
LOC: MFPLAB 08:31
PROVIDERS: PCP Family Medicine; Visit Provider Family Medicine
DX: Q85.00 Neurofibromatosis, unspecified (principal); E11.22 Type 2 diabetes mellitus with diabetic chronic kidney disease; I10 Essential (primary) hypertension
CPT/HCPCS: 36415; 80053; 82043; 82570; 85025

== ENCOUNTER → 2024-04-09 | Outpatient (CLI) | payer BC, SELFPAY ==
[2024-04-09 10:52] LABS: Absolute Lymphocyte Count 1.76 X10^3/uL (0.83-4.51); Absolute Neutrophil Count 4.5 X10^3/uL (2.0-7.7); Basophil# 0.04 X10^3/uL; Basophil% 0.6 % (0-1); Eosinophils% 2.8 % (0-5); Hematocrit 43.2 % (40-54); Hemoglobin 14.2 g/dL (13.0-16.5); Lymphocyte # 1.76 X10^3/ul (0.83-4.51); Lymphocyte % 24.8 % (19-41); Mean Corp Hgb Conc 32.9 g/dL (32-36); Mean Corpuscular Hgb 26.7 pg (27.0-32.0); Mean Corpuscular Volume 81.4 fL (80-94); Mean Platelet Vol. 10.3 fl (6.2-12.0); Monocyte# 0.61 X10^3/uL; Monocyte% 8.6 % (0-10); NRBC Flagged by Analyzer 0 % (0-5); Neutrophil # 4.45 X10^3/uL (2.7-7.7); Neutrophil % 62.6 % (47-70); Platelet Count 249 K/mm3 (150-450); RBC Distribution Width CV 13.6 % (11.6-14.6); RBC Distribution Width SD 39.8 fl (35.1-43.9); Red Blood Count 5.31 M/mm3 (4.6-6.2); White Blood Count 7.1 K/mm3 (4.4-11.0)
[2024-04-09 11:06] LABS: ALB/GLOB Ratio 1.1 RATIO (0.9-2.4); AST(SGOT) 26 U/L (15-37); Alanine Aminotransfer ALT/SGPT 47 U/L (16-61); Albumin, Serum 4.1 g/dL (3.2-5.0); Alkaline Phosphatase 49 U/L (45-117); Anion Gap 6 (5-15); BUN 17 mg/dL (7-18); BUN/Creat Ratio 15.7 RATIO (10-20); Calcium,Total 9.5 mg/dL (8.5-10.1); Chloride 98 mmol/L (98-107); Cholesterol 173 mg/dL (200); Creatinine, Serum 1.08 mg/dL (0.70-1.30); EST Glomerular Filtration Rate 73 mL/min (>60); Est Glom Filt Rate - Afr Amer 89 mL/min (>60); Globulin 3.8 g/dL (2.2-4.2); Glucose 130 mg/dL (74-106); High Density Lipoprotein 78 mg/dL; Potassium 3.8 mmol/L (3.5-5.1); Protein, Total 7.9 g/dL (6.4-8.2); Sodium Level 134 mmol/L (136-145); Triglycerides 95 mg/dL; Very Low Density Lipoprotein 19 mg/dL (5-40)
[2024-04-09 11:55] LABS: Microalbumin,Random Urine 6.2 mg/L (NO RANGE EST.); Microalbumin:Creatinine Ratio 4.3 mg/g CRE (<30 mg/g CRE)
== END | disposition home or self-care (01) ==
LOC: MFPLAB 08:23
PROVIDERS: PCP Family Medicine; Referring Provider Family Medicine; Visit Provider Family Medicine
DX: F33.8 Other recurrent depressive disorders (principal); E11.22 Type 2 diabetes mellitus with diabetic chronic kidney disease
CPT/HCPCS: 36415; 80053; 80061; 82043; 82570; 85025

== ENCOUNTER → 2024-10-25 | Outpatient (CLI) | payer BC, SELFPAY ==
[2024-10-25 13:06] LABS: AST(SGOT) 29 U/L (<=37); Alanine Aminotransfer ALT/SGPT 33 U/L (<=46); Albumin, Serum 4.4 g/dL (3.4-4.8); Alkaline Phosphatase 49 U/L (40-129); Anion Gap 12 (5-15); BUN 15 mg/dL (4-19); BUN/Creat Ratio 13.2 RATIO (10-20); Calcium,Total 10.1 mg/dL (7.6-11.0); Carbon Dioxide 26.9 mmol/L (21.0-32.0); Chloride 97 mmol/L (98-108); Cholesterol 157 mg/dL (<=200); Globulin 3.0 g/dL (2.2-4.2); Glucose 117 mg/dL (70-99); Low Density Lipoprotein Calc. 67 mg/dL; PSA,Total- Diagnostic 2.87 ng/mL (0.00-4.00); Potassium 4.0 mmol/L (3.3-5.1); Triglycerides 88 mg/dL; Very Low Density Lipoprotein 18 mg/dL (5-40); cholesterol:hdl ratio screen 2.18
[2024-10-25 13:42] LABS: Creatinine, Urine (random) 163.00 mg/dL (39.00-259.00); Microalbumin,Random Urine < 12.0 mg/L (<20 mg/L)
== END | disposition home or self-care (01) ==
LOC: MFPLAB 09:51
PROVIDERS: PCP Family Medicine; Referring Provider Family Medicine; Visit Provider Family Medicine
DX: E11.22 Type 2 diabetes mellitus with diabetic chronic kidney disease (principal); N18.2 Chronic kidney disease, stage 2 (mild); Z12.5 Encounter for screening for malignant neoplasm of prostate
CPT/HCPCS: 36415; 80053; 80061; 82043; 82570; 83036; 84153; 84443

== ENCOUNTER → 2024-11-02 | Outpatient (CLI) | payer BC, SELFPAY ==
--- NOTE | 2024-11-02 08:01 | RAD_ITS ---
EXAM: Single and double contrast esophagram CLINICAL HISTORY: Solid esophageal dysphagia. History of dilation. COMPARISON: None. TECHNIQUE: Single and double contrast esophagram. Fluoroscopy time 121 seconds. Dose: 37.06 mGy. FINDINGS: No area of persistent esophageal narrowing is noted. Mild intermittent mid to distal esophageal spasm is seen. Intermittent gastroesophageal reflux to the level of the proximal esophagus is seen. A very mild intermittent sliding-type hiatal hernia is noted. Limited images of the stomach and duodenum show no abnormality. Passage of the 13 mm barium tablet into the stomach is only slightly delayed, probably within the normal range. RAD/Esophagus Dual Contrast IMPRESSION: 1. Mild intermittent mid to distal esophageal spasm. 2. Intermittent gastroesophageal reflux to the level of the proximal esophagus. 3. Very mild intermittent sliding-type hiatal hernia. Reading Location: [place] [id number]
== END | disposition home or self-care (01) ==
PROVIDERS: PCP Family Medicine; Referring Provider Family Medicine; Visit Provider Family Medicine
DX: R13.19 Other dysphagia (principal)
CPT/HCPCS: 74221

== ENCOUNTER 2024-11-16 08:07 | Day surgery (SDC) | payer BC, SELFPAY ==
[2024-11-16 08:20] VITALS: BP 138/84; PULSE 56; TEMP 35.8; O2SAT 100
[2024-11-16] MEDS: Lidocaine Jelly 2% 20 ML Syringe (URO-JET) 1 APPLIC (08:30)
== END 2024-11-16 08:50 | disposition home or self-care (01) ==
PROVIDERS: PCP Family Medicine; Referring Provider Surgery; Visit Provider Surgery
PROC: F00ZJWZ Instrumental Swallowing and Oral Function Assessment using Swallowing Equipment (ICD-10-PCS; CPT 43235; principal; 2024-11-16 07:55)
DX: R13.10 Dysphagia, unspecified (principal)
CPT/HCPCS: 91010

== ENCOUNTER 2024-12-18 06:57 | Day surgery (SDC) | payer BC, SELFPAY ==
--- NOTE | 2024-12-13 19:36 | PAT.ANESEVAL ---
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 When Was Last Pacemaker Check QUESTION #4 FULL TEXT: You/Your Family Experience fever (hyperthermia) with Anesthesia Last Oral Intake Last Oral intake: Last Oral Intake NPO since Meds taken in AM with sips of water? 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 Female No 12/13/24 16:38 HX of Motion Sickness No 12/13/24 16:38 HX of N/V After Surgery No 12/13/24 16:38 Non-Smoker Yes 12/13/24 16:38 Duration of Surgery greater No 12/13/24 16:38 than 60 minutes Number of Risk Factors 1 12/13/24 16:38 PONV Score Low Risk 12/13/24 16:38 Height & Weight Height & Weight: Anesthesia: Height & Weight Height 6 ft 1 in 11/06/24 13:36 Respiratory Assessment Respiratory Assessment - labor gang supervisor: Respiratory Tract Infection Hx - labor gang supervisor Hx Respiratory Tract Infection No 12/13/24 16:38 STOP Sleep Apnea STOP Sleep Apnea - labor gang supervisor: STOP Sleep Apnea - labor gang supervisor Hx Hypertension Yes: PER PT, CONTROLLED ON 12/13/24 16:38 MEDS Hx Sleep Apnea No 12/13/24 16:38 CPAP BIPAP Do you snore loudly (louder No 12/13/24 16:38 than talking or can be heard Do you often feel tired/ No 12/13/24 16:38 fatigued/ sleepy during daytime? Has anyone observed you stop No 12/13/24 16:38 breathing during sleep? STOP Results Negative 12/13/24 16:38 QUESTION #5 FULL TEXT : Do you snore loudly (louder than talking or can be heard through closed doors)? 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 Specify any problems Hx of Preganancy in last 3 N/A 12/13/24 16:38 Months Nurse Filling Out Transfusion MGJOSE L 12/13/24 16:38 & Questions: Date: 12/13/24 12/13/24 16:38 Time: 16:40 12/13/24 16:38 Patient unable to answer at this time (ie. confused, unrespo /Reproduction History /Reproductive History - labor gang supervisor: /Reproductive Hx- labor gang supervisor Hx Now No 12/13/24 16:38 Gestational Age (in weeks): EDC: Hx Hx Para Hx Section SAB No 12/13/24 16:38 [facility] Medical History (Updated 12/13/24 @ 16:48 by Ingrid Hunter) Wears glasses Anxiety Alcohol use Difficulty swallowing Gastric reflux Non-smoker Hypertension Leg cramps History of stress test History of echocardiogram Cardiology follow-up encounter Type 2 diabetes mellitus GERD (gastroesophageal reflux disease) LBBB (left bundle branch block) Nonrheumatic mitral (valve) prolapse Hyperlipidemia Home Medications ?Medication ?Instructions ?Recorded ?Last Taken ?Type escitalopram oxalate 5 mg tablet 5 mg PO DAILY 08/13/17 Unknown History multivitamin 1 tab PO QDAY 09/28/17 Unknown History metformin 500 mg tablet 500 mg PO BID 11/10/18 Unknown History atorvastatin 10 mg tablet 10 mg PO .COMPLEX 12/14/21 Unknown History irbesartan 75 mg tablet 75 mg PO DAILY 12/14/21 Unknown History amlodipine 2.5 mg tablet 2.5 mg PO QDAY 04/06/24 Unknown History cetirizine 10 mg capsule (All Day 10 mg PO QDAY PRN allergy symptoms 04/06/24 Unknown History Allergy (cetirizine)) sildenafil 50 mg tablet 50 mg PO QDAY PRN ED 04/06/24 Unknown History indapamide 1.25 mg tablet 1.25 mg PO DAILY 12/13/24 Unknown History Allergy/AdvReac Type Severity Reaction Status Date / Time hydrocodone bitartrate (From Allergy Swelling Verified 12/13/24 16:33 Vicodin) oxycodone HCl (From Percocet) Allergy Other Verified 12/13/24 16:33 minocycline AdvReac Unknown Unknown Verified 12/13/24 16:33 Family History Mother Hypertension Father Hypertension Diabetes Presence of permanent cardiac pacemaker Surgical History (Updated 12/13/24 @ 16:38 by Ingrid Hunter) History of esophagogastroduodenoscopy (EGD) History of colonoscopy History of cataract extraction History of surgery on lower extremity History of spinal surgery History of shoulder surgery History of inguinal hernia repair History of vasectomy Social History Smoking Status: Never smoker Audit: Pertinent Findings Pertinent Findings EKG Perinent findings: 04/13/2021. Sinus rhythm with first-degree AV block. Left anterior fascicular block. Poor R wave progression. Stress test pertinent findings: 11/28/2018. EF is 62%. No changes diagnostic for stress-induced myocardial ischemia. Echo (EF%) pertinent findings: 02/21/2023. EF of 55%. PASP is 25 mmHg. Aortic stenosis not noted. Consult pertinent findings: April 06, 2024. Dr. Pritchett. 1. Nonrheumatic mitral valve prolapse-last echo from February 24 demonstrates normal mitral valve. Patient does not need regular cardiovascular follow-up. 2. Left bundle branch block-this is by history. Last stress test was negative for ischemia. Continue to monitor. Recommendation Anesthesia Recommendation Anesthesia recommendation: OPTIMIZED for anesthesia
[2024-12-18] VITALS (8 sets, daily range): BP systolic 95–133; BP diastolic 56–86; PULSE 59–64; RESP 16; TEMP 36.1–36.2; O2SAT 94–98; BMI 34.0
--- OUTSIDE RECORDS SUMMARY | 2024-12-18 07:19 | XMS RPT_ITS | CCD ---
Author Organization [facility] Care Team Providers Care Instructor Flying Name Role Phone Leesa HATHAWAY, Tori Yoo Unavailable Unavailable Eliseo Valadez Unavailable Unavailable Eleanor Dorsey Unavailable Unavailable Eleanor Dorsey Unavailable Unavailable Dr. Kb Sears Primary Care Provider 1([facility])[phone] Dr. Kb Sears Referring Provider 1([facility])[phone] Balaji Simental Attending Provider 1([facility])[phone] Dr. Chad Pritchett Attending Provider 1([facility])[phone] Hallie Zaragoza Referring Provider 1([facility])[phone] Kb Sears Primary Care Provider 1([facility])[phone] Dr. Kb Sears Referring Provider 1([facility])[phone] Sidney RIVAS, LEDY Hartman Attending Provider Dr. Chad Pritchett Attending Provider 1([facility])-[phone] Kb Sears MD Primary Care Provider 1([facility])[phone] Dr. Kb Sears MD Attending Provider 1([facility])[phone] Dr. Kb Sears MD Referring Provider 1([facility])[phone] Dr. Mando Hall MD Attending Provider [phone] Dr. Mando Hall MD Referring Provider [phone] Kb Sears Unavailable Kb Sears Referring Unavailable Kb Sears Primary Care Unavailable bK Sears Attending Unavailable Kb Sears Referring Unavailable Orion, Kb Primary Care Unavailable Mando Hall Attending Unavailable Mando Hall Referring Unavailable Orion, bK Primary Care Unavailable Mando Hall Attending Unavailable Kb Sears Referring Unavailable Kb Sears Primary Care Unavailable Kb Sears Primary Care Unavailable Chad Pritchett Attending Unavailable Kb Sears Referring Unavailable Mando Hall Attending Unavailable Kb Sears Referring Unavailable Kb Sears Primary Care Unavailable Kb Sears Attending Unavailable Kb Sears Referring Unavailable Kb Sears Primary Care Unavailable Allergies Allergy Classification Reported Allergen(s) Allergy Type Date of Onset Reaction(s) Facility (4 sources) Acetaminophen / HYDROcodone Drug Allergy 04-09-2011 [facility] Work Phone: (13 sources) Minocycline; Translations: [minocycline] Drug Allergy 04-09-[address] [facility] Work Phone: (9 sources) HYDROcodone; Translations: [hydrocodone bitartrate] Drug Allergy 11-17-2020 [facility] (9 sources) oxyCODONE; Translations: [oxycodone HCl] Drug Allergy 11-17-2020 Other [facility] Medications Current Medications Medication Drug Class(es) Dates Sig (Normalized) Sig (Original) amLODIPine 2.5 mg oral tablet (4 sources) Dihydropyridine Calcium Channel Sánchez Start: 04-06-2024 take 1 tablet by mouth once daily Amlodipine 2.5 mg tablet Active 2.5 mg PO daily April 06, 2024 1:00am atorvastatin 10 mg oral tablet (7 sources) HMG-CoA Reductase Inhibitor Start: 12-14-2021 Atorvastatin 10 mg tablet Active 10 mg PO .COMPLEX December 14, 2021 12:00am 10 mg orally 3XWEEK; cetirizine hydrochloride 10 mg oral capsule (14 sources) Histamine-1 Receptor Antagonist Start: 04-06-2024 take 1 capsule by mouth once daily as needed Cetirizine (All Day Allergy (Cetirizine)) 10 mg capsule Active 10 mg PO daily as needed April 06, 2024 1:00am Start: 08-13-2017 End: 01-21-2023 take 1 tablet by mouth once daily Cetirizine 10 MG tablet Discontinued 10 mg PO DAILY August 13, 2017 12:00am January 21, 2023 8:29am Start: 08-19-2014 take 1 tablet by tarah once daily ZYRTEC ALLERGY 10 MG TABS One tablet by mouth daily CETIRIZINE HCL [id number] Balaji Simental MD escitalopram 5 mg oral tablet (8 sources) Serotonin Reuptake Inhibitor Start: 08-13-2017 take 1 tablet by mouth once daily Escitalopram Oxalate 5 MG tablet Active 5 mg PO DAILY August 13, 2017 12:00am irbesartan 75 mg oral tablet (7 sources) Angiotensin 2 Receptor Sánchez Start: 12-14-2021 take 1 tablet by mouth once daily Irbesartan 75 mg tablet Active 75 mg PO DAILY December 14, 2021 12:00am metFORMIN hydrochloride 500 mg oral tablet (18 sources) Biguanide Start: 11-10-2018 take 1 tablet by mouth twice daily Metformin 500 mg tablet Active 500 mg PO TWICE A DAY November 10, 2018 9:40am Start: 08-13-2017 End: 11-10-2018 take 1 tablet by mouth once daily Metformin 500 MG tablet Discontinued 500 mg PO DAILY August 13, 2017 12:00am November 10, 2018 9:41am Start: 10-22-2016 take 1 tablet by tarah th once daily METFORMIN HCL 500 MG TABS One tablet by mouth daily METFORMIN HCL [id number] Balaji Simental MD Multivitamin preparation (4 sources) Start: 09-28-2017 take 1 tablet by mouth once daily Multivitamin Active 1 TABLET PO daily September 27, 2017 11:00pm Start: 09-28-2017 take 1 tablet by tarah th once daily Multivitamin Active 1 TABLET PO daily September 28, 2017 12:00am Multivitamin tablet (4 sources) Start: 09-28-2017 Multivitamin t ablet Active 1 {tbl} PO daily September 28, 2017 12:00am sildenafil 50 mg oral tablet (4 sources) Phosphodiesterase 5 Inhibitor Start: 04-06-2024 Sildenafil 50 mg tablet Active 50 mg PO daily as needed April 06, 2024 1:00am administer 30 minutes to 4 hours before activity Completed/Discontinued Medications Medication Drug Class(es) Dates Sig (Normalized) Sig (Original) baclofen 10 mg oral tablet (8 sources) gamma-Aminobuty susy Acid-ergic Agonist Start: 01-10-2014 End: 08-19-2014 take 1 tablet by mouth in the morning BACLOFEN 10 MG TABS One half tablet by mouth in morning, one tablet at night BACLOFEN [id number] Balaji Simental MD cholecalciferol 0.025 mg oral tablet (8 sources) Vitamin D Start: 07-22-2020 End: 01-21-2023 take 1 tablet by mouth once daily Cholecalciferol (Vitamin D3) 25 MCG tablet Discontinued 25 ug PO DAILY July 22, 2020 12:00am January 21, 2023 8:29am GLUCOSAMINE-CHONDROIT IN CAPS (6 sources) Start: 08-14-2012 End: 10-22-2016 take 1 tablet by mouth once daily GLUCOSAMINE-CHONDROI TIN CAPS One tablet by mouth daily GLUCOSAMINE-CHONDROI TIN CAPS [id number] Balaji Simental MD Start: 08-14-2012 take 1 tablet by tarah th once daily GLUCOSAMINE-CHONDROITIN CAPS One tablet by mouth daily GLUCOSAMINE-CHONDROITIN CAPS [id number] Balaji Simental MD citalopram 10 mg oral tablet (8 sources) Serotonin Reuptake Inhibitor Start: 08-19-2014 take 0.5 tablet by mouth once daily CITALOPRAM HYDROBROMIDE 10 MG TABS One-half tablet by mouth daily CITALOPRAM HYDROBROMIDE [id number] Balaji Simental MD Start: 08-19-2014 take 1 tablet by tarah th once daily CITALOPRAM HYDROBROMIDE 10 MG TABS One tablet by mouth daily CITALOPRAM HYDROBROMIDE [id number] Balaji Simental MD fluticasone propionate 0.05 mg/actuat metered dose nasal spray (8 sources) Corticosteroid Start: 04-09-2011 End: 08-14-2012 take 0.05 mg by inhalation once daily FLUTICASONE PROPIONATE 50 MCG/ACT SUSP (0.05mg/inh) 1 spray each nostril once a day FLUTICASONE PROPIONATE [id number] Balaji Simental MD gabapentin 100 mg oral capsule (8 sources) Anti-epileptic Agent Start: 09-16-2011 End: 08-14-2012 take 1 tablet by mouth three times daily GABAPENTIN 100 MG CAPS One tablet by mouth three times daily GABAPENTIN [id number] Balaji Simental MD hydrOXYzine hydrochloride 25 mg oral tablet (8 sources) Antihistamine Start: 01-10-2014 End: 08-19-2014 take 1 tablet by mouth twice daily HYDROXYZINE HCL 25 MG TABS One tablet by mouth twice daily HYDROXYZINE HCL [id number] Balaji Simental MD loratadine 10 mg oral capsule (12 sources) Start: 08-19-2014 take 1 tablet by mouth once daily as needed CLARITIN 10 MG CAPS One tablet by mouth daily as needed LORATADINE [id number] Balaji Simental MD Start: 04-09-2011 End: 01-10-2014 take 1 tablet by mouth once daily as needed CLARITIN 10 MG CAPS One tablet by mouth daily as needed LORATADINE [id number] Balaji Simental MD LORazepam 1 mg oral tablet (8 sources) Benzodiazepine Start: 04-09-2011 End: 09-16-2011 LORAZEPAM 1 MG TABS as needed LORAZEPAM [id number] Balaji Simental MD meloxicam 15 mg oral tablet (8 sources) Nonsteroidal Anti-inflammatory Drug Start: 08-14-2012 End: 08-13-2013 take 1 tablet by mouth once daily as needed MOBIC 15 MG TABS One tablet by mouth daily as needed MELOXICAM [id number] Balaji Simental MD metaxalone 800 mg oral tablet (8 sources) Start: 04-09-2011 End: 09-16-2011 take 1 tablet by mouth three times daily SKELAXIN 800 MG TABS One tablet by mouth three times daily METAXALONE [id number] Balaji Simental MD MULTIPLE VITAMINS-MINERALS (2 sources) Start: 10-22-2016 take 1 tablet by mouth once daily MULTIVITAMIN ADULT TABS One tablet by mouth daily MULTIPLE VITAMINS-MINERALS [id number] Balaji Simental MD pseudoephedrine hydrochloride 30 mg oral tablet (8 sources) alpha-Adrenergic Agonist Start: 08-13-2013 End: 01-10-2014 PSEUDOEPHEDRINE HCL 30 MG TABS as needed PSEUDOEPHEDRINE HCL [id number] Balaji Simental MD Problems Active Problems Problem Classification Problem Date Documented Da te Episodic/Chronic Conduction disorders (15 sources) Left bundle branch block; Translations: [Left bundle-branch block, unspecified] Onset: 04-09-2011 04-09-2011 Chronic Diabetes mellitus with complications (1 source) Type 2 diabetes mellitus with diabetic chronic kidney disease; Translations: [Type 2 diabetes mellitus with diabetic chronic kidney disease] Onset: 10-31-2024 Chronic Diabetes mellitus without complication (8 sources) Type 2 diabetes mellitus; Translations: [Type 2 diabetes mellitus without complications] 09-28-2017 Chronic Disorders of lipid metabolism (15 sources) Hyperlipidemia; Translations: [Hyperlipidemia, unspecified] Onset: 10-05-2011 10-05-2011 Chronic Heart valve disorders (15 sources) Mitral valve prolapse; Translations: [Nonrheumatic mitral (valve) prolapse] Onset: 09-16-2011 09-16-2011 Chronic Mood disorders (1 source) Other recurrent depressive disorders; Translations: [Other recurrent depressive disorders] Onset: 05-03-2024 Chronic Other and unspecified benign neoplasm (8 sources) History of polyp of colon; Translations: [Personal history of colonic polyps] 07-25-2020 Episodic Other gastrointestinal disorders (3 sources) Dysphagia; Translations: [Dysphagia, unspecified] 11-06-2024 Episodic Other gastrointestinal disorders (1 source) Dysphagia, unspecified; Translations: [Dysphagia, unspecified] Onset: 11-23-2024 Episodic Other gastrointestinal disorders (1 source) Other dysphagia; Translations: [Other dysphagia] Onset: 11-14-2024 Episodic Other nutritional; endocrine; and metabolic disorders (4 sources) Body mass index (BMI) 31.0-31.9, adult; Translations: [Body mass index (BMI) 31.0-31.9, adult] Onset: 08-13-2013 01-10-2014 Chronic Other nutritional; endocrine; and metabolic disorders (4 sources) Body mass index (BMI) 30.0-30.9, adult; Translations: [Body mass index (BMI) 30.0-30.9, adult] Onset: 08-13-2013 08-13-2013 Chronic Other nutritional; endocrine; and metabolic disorders (4 sources) Body mass index (BMI) 32.0-32.9, adult; Translations: [Body mass index (BMI) 32.0-32.9, adult] Onset: 08-13-2013 08-19-2014 Chronic Residual codes; unclassified (6 sources) Hypersomnia; Translations: [Hypersomnia, unspecified] 01-21-2023 Chronic Residual codes; unclassified (2 sources) Hypersomnia, unspecified; Translations: [Hypersomnia, unspecified] 01-21-2023 Chronic Past or Other Problems Problem Classification Problem Date Documented Date Episodic/Chronic Abdominal pain (4 sources) Abdominal pain, other specified site; Translations: [Abdominal pain, other specified site; multiple sites] Onset: 01-10-2014 01-10-2014 Episodic Nonspecific chest pain (8 sources) Chest pain; Translations: [Chest discomfort] Onset: 04-13-2011 01-10-2014 Episodic Other lower respiratory disease (4 sources) Dyspnea; Translations: [Shortness of breath] Onset: 01-10-2014 01-10-2014 Episodic Other screening for suspected conditions (not mental disorders or infectious disease) (4 sources) Electrocardiogram abnormal; Translations: [Abnormal electrocardiogram [ECG] [EKG]] Onset: 04-09-2011 04-09-2011 Episodic Residual codes; unclassified (4 sources) FH: Raised blood lipids; Translations: [Family history of other specified conditions] 01-10-2014 Episodic Residual codes; unclassified (4 sources) FH: Hypertension; Translations: [Family history of ischemic heart disease and other diseases of the circulatory system] 01-10-2014 Episodic Results Test Name Value Interpretation Reference Range Facility MR/PATJareth 12-13-2024 /PAT.[facility] Medical Records Department [address] [place] [id number] PAT - Anesthesia 12/13/24 193 MR#: [id number] Acct: [id number] Name: ARSH ASIF Rep #: [id number] : 1960 64 From: Hugh Mittal MD PCP: Dr. 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 When Was Last Pacemaker Check QUESTION #4 FULL TEXT: You/Your Family Experience fever (hyperthermia) with Anesthesia Last Oral Intake Last Oral intake: Last Oral Intake NPO since Meds taken in AM with sips of water? Meds patient instructed to take am of surgery PONV PONV - vocational training instructor: PONV - vocational training instructor Female No 12/13/24 16:38 HX of Motion Sickness No 12/13/24 16:38 HX of N/V After Surgery No 12/13/24 16:38 Non-Smoker Yes 12/13/24 16:38 Duration of Surgery greater No 12/13/24 16:38 than 60 minutes Number of Risk Factors 1 12/13/24 16:38 PONV Score Low Risk 12/13/24 16:38 Height Weight Height Weight: Anesthesia: Height Weight Height 6 ft 1 in 11/06/24 13:36 Respiratory Assessment Respiratory Assessment - vocational training instructor: Respiratory Tract Infection Hx - vocational training instructor Hx Respiratory Tract Infection No 12/13/24 16:38 STOP Sleep Apnea STOP Sleep Apnea - vocational training instructor: STOP Sleep Apnea - vocational training instructor Hx Hypertension Yes: PER PT, CONTROLLED ON 12/13/24 16:38 MEDS Hx Sleep Apnea No 12/13/24 16:38 CPAP BIPAP Do you snore loudly (louder No 12/13/24 16:38 than talking or can be heard Do you often feel tired/ No 12/13/24 16:38 fatigued/ sleepy during daytime? Has anyone observed you stop No 12/13/24 16:38 breathing during sleep? STOP Results Negative 12/13/24 16:38 QUESTION #5 FULL TEXT : Do you snore loudly (louder than talking or can be heard through closed doors)? 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 Specify any problems Hx of Preganancy in last 3 N/A 12/13/24 16:38 Months Nurse Filling Out Transfusion MGJOSE L 12/13/24 16:38 Questions: Date: 12/13/24 12/13/24 16:38 Time: 16:40 12/13/24 16:38 Patient unable to answer at this time (ie. confused, unrespo /Reproductio n History /Reproductiv e History - vocational training instructor: /Reproductiv e Hx- vocational training instructor Hx Now No 12/13/24 16:38 Gestational Age (in weeks): EDC: Hx Hx Para Hx Section SAB No 12/13/24 16:38 [facility] Medical History (Updated 12/13/24 @ 16:48 by Ingrid Hunter) Wears glasses Anxiety Alcohol use Difficulty swallowing Gastric reflux Non-smoker Hypertension Leg cramps History of stress test History of echocardiogram Cardiology follow-up encounter Type 2 diabetes mellitus GERD (gastroesophageal reflux disease) LBBB (left bundle branch block) Nonrheumatic mitral (valve) prolapse Hyperlipidemia Home Medications ???Medication ???Instructions ???Recorded ???Last Taken ???Type escitalopram oxalate 5 mg tablet 5 mg PO DAILY 08/13/17 Unknown His tory multivitamin 1 tab PO QDAY 09/28/17 Unknown His tory metformin 500 mg tablet 500 mg PO BID 11/10/18 Unknown His tory atorvastatin 10 mg tablet 10 mg PO .COMPLEX 12/14/21 Unknown History irbesartan 75 mg tablet 75 mg PO DAILY 12/14/21 Unknown Hi story amlodipine 2.5 mg tablet 2.5 mg PO QDAY 04/06/24 Unknown Hi story cetirizine 10 mg capsule (more content not included)... Normal [facility] Surgery Visit Reporton 11-06 Surgery Visit Report [facility] [address] [place] [address] OFFICE VISIT Date of Service: 11/06/24 MR#: [id number] Acct: [id number] Name: ARSH ASIF Rep #: [id number] : 1960 Provider: Dr. Mando june MD Age/Sex: 64/M Location: [facility] Status: Signed Intake Vital Signs 04/06/24 08:54 11/06/24 13:36 Height 6 ft 1 in 6 ft 1 in Weight: 264 lb 260 lb 8 oz BMI 34.8 34.3 BP 136/85 H 152/88 H Blood Pressure Location Lt brachial Lt brachial Position Sitting Sitting Respiration 16 18 Pulse 70 60 Pulse Source NIBP Monitor Temp 97.2 F L Temp Source Temporal Pulse Oximetry (%) 100 Oxygen Delivery Method room air Intake Visit Reasons: Dysphagia Chief Complaint: dysphagia Is patient in pain?: No Allergies hydrocodone bitartrate (From Vicodin) Allergy (Verified 11/06/24 13:36) Swelling oxycodone HCl (From Percocet) Allergy (Verified 11/06/24 13:36) Other minocycline Adverse Reaction (Unknown, Verified 11/06/24 13:36) Unknown Medications ???Medication ???Instructions ???Recorded ???Confirmed ???Type escitalopram oxalate 5 mg tablet 5 mg PO DAILY 08/13/17 11/06/24 Hi story multivitamin 1 tab PO QDAY 09/28/17 11/06/24 Hi story metformin 500 mg tablet 500 mg PO BID 11/10/18 11/06/24 Hi story atorvastatin 10 mg tablet 10 mg PO .COMPLEX 12/14/21 5 History irbesartan 75 mg tablet 75 mg PO DAILY 12/14/21 11/06/24 H istory amlodipine 2.5 mg tablet 2.5 mg PO QDAY 04/06/24 11/06/24 H istory cetirizine 10 mg capsule (All Day 10 mg PO QDAY PRN 04/06/24 History Allergy (cetirizine)) sildenafil 50 mg tablet 50 mg PO QDAY PRN 04/06/24 5 History PFSH Medical History Type 2 diabetes mellitus GERD (gastroesophageal reflux disease) LBBB (left bundle branch block) Nonrheumatic mitral (valve) prolapse Hyperlipidemia Surgical History History of surgery on lower extremity History of spinal surgery History of shoulder surgery History of inguinal hernia repair History of vasectomy Family History Mother Hypertension Father Hypertension Diabetes Presence of permanent cardiac pacemaker Social History Smoking Status: Never smoker HPI HPI HPI: Patient is a 64-year-old male here with dysphagia. He reports he had esophageal dilation about 10 years ago and his symptoms have returned. He does however say that it feels very painful when it happens and it is in the middle of his chest. He said sometimes is difficult to breathe or talk when he has these attacks. He says this happens at least weekly if not more frequently. He feels like it happens when he tries to eat too quickly or if he has poultry. ROS General General: No weight change, appetite, fatigue, colon cancer, breast cancer or weakness HEENT HEENT: Yes difficulty swallowing and eye surgery; No eye injury, swollen glands or hoarseness Endo Endocrine: Yes diabetes mellitus; No thyroid disease, thyroid cancer, Hair loss, heat intolerance or cold intolerance Skin Skin: No rash or changing moles Musc Musculoskeletal: Yes back problems; No arthritis, rheumatoid arthritis, gout or joint pain Cardio Cardiovascular: Yes murmur and high blood pressure; No pacemaker, heart disease, atrial fibrillation, heart attack, heart stent, palpitations, shortness of breath with exertion or chest pain Psych Psychiatric: Yes anxiety; No depression or hearing voices Resp Respiratory: No shortness of breath, No sleep apnea, No cough, No COPD, No asthma, No emphysema and No wheezing Gastro Gastrointestinal: No abdominal pain, No nausea or vomiting, No diarrhea, No constipation, No blood in stool, No acid reflux, No hemorrhoids, No ulcers, No gallbladder problem and No black,tarry stools [place] Hematologic: No blood thinners, No blood disorders, No bleeding, No anemia and No blood clots Neuro Neurologic: No numbness, No tingling and No weakness Exam Const General: cooperative Orientation: alert and oriented x3 HENMT Head: normal to inspection Neck Neck: normal visual inspection and full ROM Chest Chest palpation inspection: normal inspection of the chest Resp Effort Inspection: normal respiratory effort Auscultation: clear to auscultation bilaterally Cardio Rate: regular rate Rhythm: regular rhythm GI Inspection: non-distended Palpation: soft and nontender Skin General: no rashes or lesions noted Neuro General: patient alert and patient oriented x3 Extrem General: full ROM Psych Appearance: grossl (more content not included)... Normal [facility] Esophagus Dual Contraston Esophagus Dual Contrast [facility] Imaging Services [address] [place], [place] [address] Esophagus Dual Contrast MR#: [id number] Acct: [id number] Name: ARSH ASIF Rep #: [id number] : 1960 M 64 From: [place] PCP: Dr. Kb Sears MD Status: REG CLI Study: Esophagus Dual Contrast Date of Exam: 11/02/24 Exam# [id number] Ordering Dr: Kb Sears MD EXAM: Single and double contrast esophagram CLINICAL HISTORY: Solid esophageal dysphagia. History of dilation. COMPARISON: None. TECHNIQUE: Single and double contrast esophagram. Fluoroscopy time 121 seconds. Dose: 37.06 mGy. FINDINGS: No area of persistent esophageal narrowing is noted. Mild intermittent mid to distal esophageal spasm is seen. Intermittent gastroesophageal reflux to the level of the proximal esophagus is seen. A very mild intermittent sliding-type hiatal hernia is noted. Limited images of the stomach and duodenum show no abnormality. Passage of the 13 mm barium tablet into the stomach is only slightly delayed, probably within the normal range. RAD/Esophagus Dual Contrast IMPRESSION: 1. Mild intermittent mid to distal esophageal spasm. 2. Intermittent gastroesophageal reflux to the level of the proximal esophagus. 3. Very mild intermittent sliding-type hiatal hernia. Reading Location: [place] [address] CC: Dr. 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 Normal [facility] Anion gap in Serum or Plasma Ordered By: Kb Sears on 10-25-2024 Anion gap [Moles/Vol] 12 mmol/L 5-15 [facility] BUN/creatinine ratioOrdered By: Kb Sears on 10-25-2024 Urea nitrogen/Creatinine [Mass ratio] 13.2 mg/mg 10-20 [facility] Bilirubin, totalOrdered By: Kb Sears on 10-25-2024 Bilirubin [Mass/Vol] 0.98 mg/dL 0.00-1.30 [facility] Calculated very low density lipoprotein (VLDL) cholesterol measurementOrdered By: Kb Sears on 10-25-2024 Calculated very low density lipoprotein (VLDL) cholesterol measurement 18 mg/dL 5-40 [facility] Carbon dioxide, total [Moles /volume] in Central venous bloodOrdered By: Kb Sears on 10-25-2024 CO2 [Moles/Vol] 26.9 mmol/L 21.0-32.0 [facility] Chloride assayOrdered By: Jh Sears on 10-25-2024 Chloride [Moles/Vol] 97 mmol/L Low 98-108 [facility] Comprehensive Metabolic Prof ilon 10-25-2024 Albumin [Mass/Vol] 4.4 g/dL Normal 3.4-4.8 [facility] Comment on above: Order Comment: Order Date: 10/25/24 Order Info: [id number] - CMP Order Info: [id number] - LIPID Order Info: [id number] - TSH Order Info: [id number] - PSAD Performed By: #### L 501.9985, L501.9520, L500.4050, L500.4100, L501.9940 #### [facility] [place], [place], [id number] Albumin/Globulin [Mass ratio] 1.5 {ratio} Normal 0.9-2.4 [facility] Comment on above: Order Comment: Order Date: 10/25/24 Order Info: [id number] - CMP Order Info: [id number] - LIPID Order Info: 3 - TSH Order Info: [id number] - PSAD Performed By: #### L 501.9985, L501.9520, L500.4050, L500.4100, L501.9940 #### [facility] [address] [place], [address] ALK PHOS 49 U/L Normal 40-129 [facility] Comment on above: Order Comment: Order Date: 10/25/24 Order Info: [id number]- - CMP Order Info: [id number] - LIPID Order Info: [id number] - TSH Order Info: 782- - PSAD Performed By: #### L 501.9985, L501.9520, L500.4050, L500.4100, L501.9940 #### [facility] [address] [place], [address] ALT [Catalytic activity/Vol] 33 U/L Normal <=46 [facility] Comment on above: Order Comment: Order Date: 10/25/24 Order Info: [id number] - CMP Order Info: - LIPID Order Info: [id number] - TSH Order Info: [id number] - PSAD Performed By: #### L 501.9985, L501.9520, L500.4050, L500.4100, L501.9940 #### [facility] [address] [place], [address] AST [Catalytic activity/Vol] 29 U/L Normal <=37 [facility] Comment on above: Order Comment: Order Date: 10/25/24 Order Info: [id number] - CMP Order Info: - LIPID Order Info: [id number] - TSH Order Info: 782- - PSAD Performed By: #### L 501.9985, L501.9520, L500.4050, L500.4100, L501.9940 #### [facility] [address] [place], [address] Bilirubin [Mass/Vol] 0.98 mg/dL Normal 0.00-1.30 [facility] Comment on above: Order Comment: Order Date: 10/25/24 Order Info: [id number] - CMP Order Info: - LIPID Order Info: [id number] - TSH Order Info: [id number] - PSAD Performed By: #### L 501.9985, L501.9520, L500.4050, L500.4100, L501.9940 #### [facility] [address] [place], [address] BUN/CRE 13.2 RATIO Normal 10-20 [facility] Comment on above: Order Comment: Order Date: 10/25/24 Order Info: 86-1 - CMP Order Info: [id number] - LIPID Order Info: [id number] - TSH Order Info: [id number] - PSAD Performed By: #### L 501.9985, L501.9520, L500.4050, L500.4100, L501.9940 #### [facility] [address] [place], [address] Calcium [Mass/Vol] 10.1 mg/dL Normal 7.6-11.0 [facility] Comment on above: Order Comment: Order Date: 10/25/24 Order Info: [id number] - CMP Order Info: [id number] - LIPID Order Info: [id number] - TSH Order Info: [id number] - PSAD Performed By: #### L 501.9985, L501.9520, L500.4050, L500.4100, L501.9940 #### [facility] [address] [place], [address] Chloride [Moles/Vol] 97 mmol/L Low 98-108 [facility] Comment on above: Order Comment: Order Date: 10/25/24 Order Info: [id number] - CMP Order Info: [id number] - LIPID Order Info: [id number] - TSH Order Info: 782- - PSAD Performed By: #### L 501.9985, L501.9520, L500.4050, L500.4100, L501.9940 #### [facility] [address] [place], [address] CO2 [Moles/Vol] 26.9 mmol/L Normal 21.0-32.0 [facility] Comment on above: Order Comment: Order Date: 10/25/24 Order Info: 785- - CMP Order Info: - LIPID Order Info: 3 - TSH Order Info: 83-1 - PSAD Performed By: #### L 501.9985, L501.9520, L500.4050, L500.4100, L501.9940 #### [facility] [address] [place], [place], [address] Creatinine [Mass/Vol] 1.14 mg/dL Normal 0.70-1.20 [facility] Comment on above: Order Comment: Order Date: 10/25/24 Order Info: [id number] - CMP Order Info: - LIPID Order Info: [id number] - TSH Order Info: 782-04 - PSAD Performed By: #### L 501.9985, L501.9520, L500.4050, L500.4100, L501.9940 #### [facility] [address] [place], [place], [id number] GAP 12 Normal 5-15 [facility] Comment on above: Order Comment: Order Date: 10/25/24 Order Info: [id number] - CMP Order Info: - LIPID Order Info: [id number] - TSH Order Info: 782-04 - PSAD Performed By: #### L 501.9985, L501.9520, L500.4050, L500.4100, L501.9940 #### [facility] [address] [place], [place], [id number] GFR/1.73 sq M.predicted among non-blacks MDRD (S/P/Bld) [Vol rate/Area] 72 mL/min/{1.73_m2} Normal >60 [facility] Comment on above: Order Comment: Order Date: 10/25/24 Order Info: [id number] - CMP Order Info: [id number] - LIPID Order Info: [id number] TSH Order Info: 782- - PSAD Result Comment: mL/m in/1.73m2 CKD-EPI Creatinine Equation (2020) Performed By: #### L 501.9985, L501.9520, L500.4050, L500.4100, L501.9940 #### [facility] [address] [place], [address] Globulin (S) [Mass/Vol] 3.0 g/dL Normal 2.2-4.2 [facility] Comment on above: Order Comment: Order Date: 10/25/24 Order Info: [id number] - CMP Order Info: - LIPID Order Info: [id number] - TSH Order Info: [id number] - PSAD Performed By: #### L 501.9985, L501.9520, L500.4050, L500.4100, L501.9940 #### [facility] [address] [place], [address] Glucose [Mass/Vol] 117 mg/dL High 70-99 [facility] Comment on above: Order Comment: Order Date: 10/25/24 Order Info: [id number] - CMP Order Info: - LIPID Order Info: [id number] - TSH Order Info: 782-04 - PSAD Performed By: #### L 501.9985, L501.9520, L500.4050, L500.4100, L501.9940 #### [facility] [address] [place], [address] Potassium [Moles/Vol] 4.0 mmol/L Normal 3.3-5.1 [facility] Comment on above: Order Comment: Order Date: 10/25/24 Order Info: [id number] - CMP Order Info: [id number] - LIPID Order Info: [id number] - TSH Order Info: 782- - PSAD Performed By: #### L 501.9985, L501.9520, L500.4050, L500.4100, L501.9940 #### [facility] [address] [place], [address] Sodium [Moles/Vol] 136 mmol/L Normal 133-145 [facility] Comment on above: Order Comment: Order Date: 10/25/24 Order Info: [id number] - CMP Order Info: [id number] - LIPID Order Info: 3 - TSH Order Info: 782-04 - PSAD Performed By: #### L 501.9985, L501.9520, L500.4050, L500.4100, L501.9940 #### [facility] [address] [place], [place], [id number] T PROT 7.4 g/dL Normal 5.9-8.4 [facility] Comment on above: Order Comment: Order Date: 10/25/24 Order Info: [id number] - CMP Order Info: - LIPID Order Info: [id number] - TSH Order Info: 782-04 - PSAD Performed By: #### L 501.9985, L501.9520, L500.4050, L500.4100, L501.9940 #### [facility] [address] [place], [address] Urea nitrogen [Mass/Vol] 15 mg/dL Normal 4-19 [facility] Comment on above: Order Comment: Order Date: 10/25/24 Order Info: [id number]- - CMP Order Info: [id number] - LIPID Order Info: 3 - TSH Order Info: [id number] - PSAD Performed By: #### L 501.9985, L501.9520, L500.4050, L500.4100, L501.9940 #### [facility] [address] [place], [address] Glomerular filtration rate ( GFR) estimation/1.73 sq m using serum, plasma, or whole bOrdered By: Kb Sears on 10-25-2024 GFR/1.73 sq M.predicted among non-blacks MDRD (S/P/Bld) [Vol rate/Area] 72 mL/min/{1.73_m2} >60 [facility] Comment on above: mL/min/1.73m2 CKD-EP I Creatinine Equation (2020) Hemoglobin A1con 10-25-2024 HbA1c (Bld) [Mass fraction] 7.0 % High <=5.6 [facility] Comment on above: Order Comment: Order Date: 10/25/24 Order Info: [id number] - A1C Result Comment: Norm al < 5.7 % Prediabetic 5.7 - 6.4 % Diabetic >or= 6.5 % Please note range changes. Performed By: #### L 501.9985, L501.9520, L500.4050, L500.4100, L501.9940 #### [facility] [address] [place], [place], [phone] Hemoglobin A1c percentageOrd ered By: Kb Sears on 10-25-2024 HbA1c (Bld) [Mass fraction] 7.0 % High <5.7 [facility] Comment on above: Normal < 5.7 % Predi abetic 5.7 - 6.4 % Diabetic >or= 6.5 % Please note range changes. LDL calc ser/plasOrdered By: Kb Sears on 10-25-2024 Cholesterol in LDL [Mass/Vol] 67 mg/dL [facility] Comment on above: Bhtnnclngn=032-055 m g/dL & Higher Iyhr=617 mg/dL or greater Laboratory - Chemistry and C hemistry - challengeOrdered By: Kb Sears on 10-25-2024 AST [Catalytic activity/Vol] 29 U/L <38 [facility] Lipid Profileon 10-25-2024 CHOL:HDL 2.18 Normal [facility] Comment on above: Order Comment: Order Date: 10/25/24Order Info: [id number] - CMPOrder Info: [id number] - LIPIDOrder Info: [id number] - TSHOrder Info: [id number] - PSAD Performed By: #### L 501.9985, L501.9520, L500.4050, L500.4100, L501.9940 ####[facility] [address] [place], [address] Cholesterol [Mass/Vol] 157 mg/dL Normal <=200 [facility] Comment on above: Order Comment: Order Date: 10/25/24Order Info: [id number] - CMPOrder Info: [id number] - LIPIDOrder Info: [id number] - TSHOrder Info: 83-1 - PSAD Result Comment: Chol esterol level, Desirable <200 mg/dL Borderline high cholesterol 200-239 mg/dL High cholesterol >=240 mg/dL Recommendations of the NCEP Adult Treatment Panel for the following risk-cutoff thresholds for the [place] population. Performed By: #### L 501.9985, L501.9520, L500.4050, L500.4100, L501.9940 ####[facility] [address] [place], [address] Cholesterol in HDL [Mass/Vol] 72 mg/dL Normal [facility] Comment on above: Order Comment: Order Date: 10/25/24Order Info: [id number] - CMPOrder Info: [id number] - LIPIDOrder Info: [id number] - TSHOrder Info: [id number] - PSAD Result Comment: Yanci onal Cholesterol Education Program (NCEP) guidelines: <40 mg/dL: Low HDL-cholesterol (major risk factor for CHD) >= 60 mg/dL: High HDL-cholesterol (negative risk factor for CHD) HDL-cholesterol is affected by a number of factors, e.g. smoking, exercise, hormones, sex and age. Performed By: #### L 501.9985, L501.9520, L500.4050, L500.4100, L501.9940 ####[facility] [address] [place], [address] Cholesterol in LDL [Mass/Vol] 67 mg/dL Normal [facility] Comment on above: Order Comment: Order Date: 10/25/24Order Info: 07-1 - CMPOrder Info: [id number] - LIPIDOrder Info: [id number] - TSHOrder Info: [id number] - PSAD Result Comment: Bord yhrais=766-042 mg/dL Higher Vrya=337 mg/dL or greater Performed By: #### L 501.9985, L501.9520, L500.4050, L500.4100, L501.9940 ####[facility] [address] [place], [address] Cholesterol in VLDL [Mass/Vol] 18 mg/dL Normal 5-40 [facility] Comment on above: Order Comment: Order Date: 10/25/24Order Info: [id number] - CMPOrder Info: [id number] - LIPIDOrder Info: [id number] - TSHOrder Info: [id number] - PSAD Performed By: #### L 501.9985, L501.9520, L500.4050, L500.4100, L501.9940 ####[facility] [address] [place], [address] Triglyceride [Mass/Vol] 88 mg/dL Normal [facility] Comment on above: Order Comment: Order Date: 10/25/24Order Info: [id number] - CMPOrder Info: [id number] - LIPIDOrder Info: [id number] - TSHOrder Info: [id number]- - PSAD Result Comment: The drugs N-Acetylcysteine and Metamizole may falsely depress this assay. Normal range: <150 mg/dL Borderline High: 150-199 mg/dL High: 200-499 mg/dL Very High: >500 mg/dL Performed By: #### L 501.9985, L501.9520, L500.4050, L500.4100, L501.9940 ####[facility] [address] [place], [address] Microalb:Creat Ratio,Random URon 10-25-2024 Creatinine [Mass/Vol] 163.00 mg/dL Normal 39.00-259.00 [facility] Comment on above: Order Comment: Order Date: 10/25/24Order Info: [id number] - MIALB Performed By: #### L 502.0250 ####[facility] [address] [place], [address] MALB:CREAT UNABLE TO CALCULATE Normal <30 mg/g CRE [facility] Comment on above: Order Comment: Order Date: 10/25/24Order Info: [id number] - MIALB Performed By: #### L 502.0250 ####[facility] [address] [place], [place], [phone] MICROALBUMIN,UR < 12.0 Normal <20 mg/L [facility] Comment on above: Order Comment: Order Date: 10/25/24Order Info: [id number] - MIALB Performed By: #### L 502.0250 ####[facility] [address] [facility] [address] [place], [place], [id number] Microalbumin/creat ratio urO rdered By: Kb Sears on 10-25-2024 Urine microalbumin/creatinine ratio measurement UNABLE TO CALCULATE mg/g CRE <30 [facility] PSA,Total- Diagnosticon 10-03 PSA, DIAGNOSTIC 2.87 ng/mL Normal 0.00-4.00 [facility] Comment on above: Order Comment: Order Date: 10/25/24Order Info: [id number] - CMPOrder Info: [id number] - LIPIDOrder Info: [id number] - TSHOrder Info: [id number] - PSAD Result Comment: This test was performed using the [employer] tPSA method. Measured values of a patient??sample can vary depending on the testing procedure used. PSA values determined on patient samples by different testing procedures cannot be used interchangeably. If there is a change in PSA assays while monitoring therapy, sequential testing should be performed to confirm baseline values. Performed By: #### L 501.9985, L501.9520, L500.4050, L500.4100, L501.9940 ####[facility] [address] [place], [place], [address] Potassium measurement (mass/ volume)Ordered By: Kb Sears on 10-25-2024 Potassium (Unsp spec) [Mass/Vol] 4.0 mmol/L 3.3-5.1 [facility] Random urine creatinine emma urement (mass/volume)Ordered By: Kb Sears on 10-25-2024 Creatinine Unsp time (U) [Mass/Vol] 163.00 mg/dL 39.00-259.00 [facility] Screening total cholesterol/ high density lipoprotein (HDL) cholesterol ratioOrdered By: Kb Sears on 10-25-2024 Cholesterol.total/Jossy sterol in HDL [Mass ratio] 2.18 {ratio} [facility] Serum creatinine measurement (mass/volume)Ordered By: Kb Sears on 10-25-2024 Creatinine [Mass/Vol] 1.14 mg/dL 0.70-1.20 [facility] Serum globulin measurementOr dered By: Kb Sears on 10-25-2024 Globulin (S) [Mass/Vol] 3.0 g/dL 2.2-4.2 [facility] Serum glucose measurement (m ass/volume)Ordered By: Kb Sears on 10-25-2024 Glucose [Mass/Vol] 117 mg/dL High 70-99 [facility] Serum or plasma alanine nicholson otransferase (ALT) measurementOrdered By: Kb Sears on 10-25-2024 ALT [Catalytic activity/Vol] 33 U/L <47 [facility] Serum or plasma albumin emma urement (mass/volume)Ordered By: Kb Sears on 10-25-2024 Albumin [Mass/Vol] 4.4 g/dL 3.4-4.8 [facility] Serum or plasma albumin/glob ulin mass ratioOrdered By: Kb Sears on 10-25-2024 Albumin/Globulin [Mass ratio] 1.5 {ratio} 0.9-2.4 [facility] Serum or plasma alkaline obie sphatase measurementOrdered By: Kb Sears on 10-25-2024 ALP [Catalytic activity/Vol] 49 U/L 40-129 [facility] Serum or plasma calcium emma urement (mass/volume)Ordered By: Kb Sears on 10-25-2024 Calcium [Mass/Vol] 10.1 mg/dL 7.6-11.0 [facility] Serum or plasma cholesterol in HDL measurement (mass/volume)Ordered By: Kb Sears on 07-24-2025 Cholesterol in HDL [Mass/Vol] 72 mg/dL >40 [facility] Comment on above: National Cholesterol Education Program (NCEP) guidelines:<40 mg/dL: Low HDL-cholesterol (major risk factor for CHD)>= 60 mg/dL: High HDL-cholesterol (negative risk factor for CHD)HDL-cholesterol is affected by a number of factors, e.g. smoking, exercise, hormones, sex and age. Serum or plasma cholesterol measurement (mass/volume)Ordered By: Kb Sears on 10-25-2024 Cholesterol [Mass/Vol] 157 mg/dL <201 [facility] Comment on above: Cholesterol level, D esirable <200 mg/dLBorderline high cholesterol 200-239 mg/dLHigh cholesterol >=240 mg/dLRecommendations of the NCEP Adult Treatment Panel for the following risk-cutoff thresholds for the [place] population. Serum or plasma urea nitroge n measurement (mass/volume)Ordered By: Kb Sears on 10-25-2024 Urea nitrogen [Mass/Vol] 15 mg/dL 4-19 [facility] Sodium levelOrdered By: Kb Sears on 10-25-2024 Sodium [Moles/Vol] 136 mmol/L 133-145 [facility] TSH DL <= 0.005 mIU/L QnOrde red By: Kb Sears on 10-25-2024 TSH Qn 1.800 uIU/mL 0.300-4.200 [facility] Thyroid Stim Hormone (TSH)on 10-25-2024 TSH 1.800 uIU/mL Normal 0.300-4.200 [facility] Comment on above: Order Comment: Order Date: 10/25/24Order Info: [id number] - CMPOrder Info: [id number] - LIPIDOrder Info: [id number] - TSHOrder Info: [id number] - PSAD Performed By: #### L 501.9960, L501.9520, L500.4050, L500.4100, L501.9940 ####[facility] [address] [place], [place], [id number] Total proteinOrdered By: Monica Sears on 10-25-2024 Protein [Mass/Vol] 7.4 g/dL 5.9-8.4 [facility] Triglycerides measurementOrd ered By: Kb Sears on 10-25-2024 Triglyceride [Mass/Vol] 88 mg/dL <199 [facility] Comment on above: The drugs N-Acetylcy steine and Metamizole may falsely depress this assay. Normal range: <150 mg/dLBorderline High: 150-199 mg/dLHigh: 200-499 mg/dLVery High: >500 mg/dL Urine albumin measurement [facility] detection limit of 20 mg/L or less (mass/volume)Ordered By: Kb Sears on 10-25-2024 Albumin DL <= 20 mg/L (U) [Mass/Vol] < 12.0 mg/L <20 mg/L [facility] CBC W/Diff, Automatedon Absolute Lymph 1.76 X10 3/uL Normal 0.83-4.51 [facility] Comment on above: Performed By: #### L 500.4050, L502.0250, L100.0100, L500.4100 #### [facility] [address] [place], [address] Absolute Neut 4.5 X10 3/uL Normal 2.0-7.7 [facility] Comment on above: Performed By: #### L 500.4050, L502.0250, L100.0100, L500.4100 #### [facility] [address] [place], [address] Basophils/100 WBC (Bld) 0.6 % Normal 0-1 [facility] Comment on above: Performed By: #### L 500.4050, L502.0250, L100.0100, L500.4100 #### [facility] [address] [place], [address] Eosinophils/100 WBC (Bld) 2.8 % Normal 0-5 [facility] Comment on above: Performed By: #### L 500.4050, L502.0250, L100.0100, L500.4100 #### [facility] [address] [place], [address] Erythrocyte distribution width (RBC) [Ratio] 13.6 % Normal 11.6-14.6 [facility] Comment on above: Performed By: #### L 500.4050, L502.0250, L100.0100, L500.4100 #### [facility] [address] [place], [address] Hematocrit (Bld) [Volume fraction] 43.2 % Normal 40-54 [facility] Comment on above: Performed By: #### L 500.4050, L502.0250, L100.0100, L500.4100 #### [facility] [address] [place], [address] Hemoglobin (Bld) [Mass/Vol] 14.2 g/dL Normal 13.0-16.5 [facility] Comment on above: Performed By: #### L 500.4050, L502.0250, L100.0100, L500.4100 #### [facility] [address] [place], [address] IG% 0.600 Normal 0.0-0.9 [facility] Comment on above: Result Comment: IG% - Immature Granulocytes (promyelocytes, myelocytes and metamyelocytes) > 1% indicates that a LEFT SHIFT is Present. Performed By: #### L 500.4050, L502.0250, L100.0100, L500.4100 #### [facility] [address] [place], [address] Lymphocytes/100 WBC (Bld) 24.8 % Normal 19-41 [facility] Comment on above: Performed By: #### L 500.4050, L502.0250, L100.0100, L500.4100 #### [facility] [address] [place], [address] MCH (RBC) [Entitic mass] 26.7 pg Low 27.0-32.0 [facility] Comment on above: Performed By: #### L 500.4050, L502.0250, L100.0100, L500.4100 #### [facility] [address] [place], [address] MCHC (RBC) [Mass/Vol] 32.9 g/dL Normal 32-36 [facility] Comment on above: Performed By: #### L 500.4050, L502.0250, L100.0100, L500.4100 #### [facility] [address] [place], [address] MCV (RBC) [Entitic vol] 81.4 fL Normal 80-94 [facility] Comment on above: Performed By: #### L 500.4050, L502.0250, L100.0100, L500.4100 #### [facility] [address] [place], [address] Monocytes/100 WBC (Bld) 8.6 % Normal 0-10 [facility] Comment on above: Performed By: #### L 500.4050, L502.0250, L100.0100, L500.4100 #### [facility] [address] [place], [address] Neutrophils/100 WBC (Bld) 62.6 % Normal 47-70 [facility] Comment on above: Performed By: #### L 500.4050, L502.0250, L100.0100, L500.4100 #### [facility] [address] [place], [address] Nucleated RBC (Bld) [#/Vol] 0 10*3/uL Normal 0-5 [facility] Comment on above: Performed By: #### L 500.4050, L502.0250, L100.0100, L500.4100 #### [facility] [address] [place], [address] Platelet mean volume (Bld) [Entitic vol] 10.3 fL Normal 6.2-12.0 [facility] Comment on above: Performed By: #### L 500.4050, L502.0250, L100.0100, L500.4100 #### [facility] [address] [place], [address] Platelets (Bld) [#/Vol] 249 10*3/uL Normal 150-450 [facility] Comment on above: Performed By: #### L 500.4050, L502.0250, L100.0100, L500.4100 #### [facility] [address] [place], [address] RBC (Bld) [#/Vol] 5.31 10*6/uL Normal 4.6-6.2 [facility] Comment on above: Performed By: #### L 500.4050, L502.0250, L100.0100, L500.4100 #### [facility] [address] [place], [address] RDW SD 39.8 fl Normal 35.1-43.9 [facility] Comment on above: Performed By: #### L 500.4050, L502.0250, L100.0100, L500.4100 #### [facility] [address] [place], [address] WBC (Bld) [#/Vol] 7.1 10*3/uL Normal 4.4-11.0 [facility] Comment on above: Performed By: #### L 500.4050, L502.0250, L100.0100, L500.4100 #### [facility] [address] [place], [address] [facility] Albumin [Mass/Vol] 4.1 g/dL Normal 3.2-5.0 [facility] Comment on above: Performed By: #### L 500.4050, L502.0250, L100.0100, L500.4100 #### [facility] [address] [place], [address] Albumin/Globulin [Mass ratio] 1.1 {ratio} Normal 0.9-2.4 [facility] Comment on above: Performed By: #### L 500.4050, L502.0250, L100.0100, L500.4100 #### [facility] [address] [place], [address] ALK P 49 U/L Normal 45-117 [facility] Comment on above: Performed By: #### L 500.4050, L502.0250, L100.0100, L500.4100 #### [facility] [address] [place], [address] ALT [Catalytic activity/Vol] 47 U/L Normal 16-61 [facility] Comment on above: Performed By: #### L 500.4050, L502.0250, L100.0100, L500.4100 #### [facility] [address] [place], [address] AST [Catalytic activity/Vol] 26 U/L Normal 15-37 [facility] Comment on above: Performed By: #### L 500.4050, L502.0250, L100.0100, L500.4100 #### [facility] [address] [place], [address] Bilirubin [Mass/Vol] 1.00 mg/dL Normal 0.20-1.00 [facility] Comment on above: Result Comment: For patients on eltrombopag therapy, use of Dimension [place] TBIL is not recommended. Performed By: #### L 500.4050, L502.0250, L100.0100, L500.4100 #### [facility] [address] [place], [address] BUN/CRE 15.7 RATIO Normal 10-20 [facility] Comment on above: Performed By: #### L 500.4050, L502.0250, L100.0100, L500.4100 #### [facility] [address] [place], [address] CA,Total 9.5 mg/dL Normal 8.5-10.1 [facility] Comment on above: Performed By: #### L 500.4050, L502.0250, L100.0100, L500.4100 #### [facility] [address] [place], [address] Chloride [Moles/Vol] 98 mmol/L Normal 98-107 [facility] Comment on above: Performed By: #### L 500.4050, L502.0250, L100.0100, L500.4100 #### [facility] [address] [place], [address] CO2 [Moles/Vol] 30.0 mmol/L Normal 21.0-32.0 [facility] Comment on above: Performed By: #### L 500.4050, L502.0250, L100.0100, L500.4100 #### [facility] [address] [place], [address] Creatinine [Mass/Vol] 1.08 mg/dL Normal 0.70-1.30 [facility] Comment on above: Result Comment: The validity of the calculated GFR GFRAA in patients over 70 years has not been determined. Clinical correlation is essential. Performed By: #### L 500.4050, L502.0250, L100.0100, L500.4100 #### [facility] [address] [place], [address] EST GFR - AA 89 mL/min Normal >60 [facility] Comment on above: Result Comment: Afri can [place] GFR Calc Performed By: #### L 500.4050, L502.0250, L100.0100, L500.4100 #### [facility] [address] [place], [address] GAP 6 Normal 5-15 [facility] Comment on above: Performed By: #### L 500.4050, L502.0250, L100.0100, L500.4100 #### [facility] [address] [place], [address] GFR/1.73 sq M.predicted among non-blacks MDRD (S/P/Bld) [Vol rate/Area] 73 mL/min/{1.73_m2} Normal >60 [facility] Comment on above: Result Comment: Non- GFR Calc Performed By: #### L 500.4050, L502.0250, L100.0100, L500.4100 #### [facility] [address] [place], [address] Globulin (S) [Mass/Vol] 3.8 g/dL Normal 2.2-4.2 [facility] Comment on above: Performed By: #### L 500.4050, L502.0250, L100.0100, L500.4100 #### [facility] [address] [place], [address] Glucose [Mass/Vol] 130 mg/dL High 74-106 [facility] Comment on above: Result Comment: Fast ing Glucose result greater than or equal to 126 mg/dL suggests DIABETES MELLITUS per A.D.A. criteria. Performed By: #### L 500.4050, L502.0250, L100.0100, L500.4100 #### [facility] [address] [place], [address] Potassium [Moles/Vol] 3.8 mmol/L Normal 3.5-5.1 [facility] Comment on above: Performed By: #### L 500.4050, L502.0250, L100.0100, L500.4100 #### [facility] [address] [place], [address] Sodium [Moles/Vol] 134 mmol/L Low 136-145 [facility] Comment on above: Performed By: #### L 500.4050, L502.0250, L100.0100, L500.4100 #### [facility] [address] [place], [address] T PROT 7.9 g/dL Normal 6.4-8.2 [facility] Comment on above: Performed By: #### L 500.4050, L502.0250, L100.0100, L500.4100 #### [facility] [address] [place], [address] Urea nitrogen [Mass/Vol] 17 mg/dL Normal 7-18 [facility] Comment on above: Performed By: #### L 500.4050, L502.0250, L100.0100, L500.4100 #### [facility] [address] [place], [address] Lipid Profileon 04-09-2024 Cholesterol [Mass/Vol] 173 mg/dL Normal 200 [facility] Comment on above: Result Comment: <200 mg/dL Desirable 200-240 mg/dL Borderline >240 mg/dL High Risk Performed By: #### L 500.4050, L502.0250, L100.0100, L500.4100 #### [facility] [address] [place], [address] Cholesterol in HDL [Mass/Vol] 78 mg/dL Normal [facility] Comment on above: Result Comment: The drugs N-Acetylcysteine and Metamizole may falsely depress this assay. Reference Range HDL <40 mg/dL Low HDL Cholesterol HDL >or= 60 mg/dL High HDL Cholesterol Performed By: #### L 500.4050, L502.0250, L100.0100, L500.4100 #### [facility] [address] [place], [address] Cholesterol in LDL [Mass/Vol] 76 mg/dL Normal 0-130 [facility] Comment on above: Performed By: #### L 500.4050, L502.0250, L100.0100, L500.4100 #### [facility] [address] [place], [address] Cholesterol in VLDL [Mass/Vol] 19 mg/dL Normal 5-40 [facility] Comment on above: Performed By: #### L 500.4050, L502.0250, L100.0100, L500.4100 #### [facility] [address] [place], [address] Triglyceride [Mass/Vol] 95 mg/dL Normal [facility] Comment on above: Result Comment: The drugs N-Acetylcysteine and Metamizole may falsely depress this assay. Serum Triglycerides Reference Interval Normal <150 mg/dL Borderline high 150 - 199 mg/dL High 200 - 499 mg/dL Very High > or = 500 mg/dL Performed By: #### L 500.4050, L502.0250, L100.0100, L500.4100 #### [facility] [address] [place], [address] Microalb:Creat Ratio,Random URon 04-09-2024 Creatinine [Mass/Vol] 143.00 mg/dL Normal NO RANGE EST . [facility] Comment on above: Performed By: #### L 500.4050, L502.0250, L100.0100, L500.4100 #### [facility] [address] [place], [address] MALB:CRE 4.3 mg/g CRE Normal <30 mg/g CRE [facility] Comment on above: Performed By: #### L 500.4050, L502.0250, L100.0100, L500.4100 #### [facility] [address] [place], [address] MICROALBUMIN,UR 6.2 mg/L Normal NO RANGE EST. [facility] Comment on above: Performed By: #### L 500.4050, L502.0250, L100.0100, L500.4100 #### [facility] [address] [place], [address] Cardiology Visit Reporton Cardiology Visit Report [facility] [address] [place], [place] [address] OFFICE VISIT Date of Service: 04/06/24 MR#: [id number] Acct: [id number] Name: ARSH ASIF Gustavo Rep #: [id number] : 1960 Provider: Dr. Chad Pritchett MD Age/Sex: 63/M Location[place] [facility] [place] [facility] [place] Status: Signed HPI HPI History of Present Illness Details: This is a 63-year-old white male who presents today for outpatient cardiovascular follow-up visit. He has a history of equivocal MVP, left bundle branch block, and hyperlipidemia. From a cardiac standpoint, the patient is doing well. He denies any palpitations, chest pain, pressure or heaviness. He denies SOB, Orthopnea, and PND. He does not have bleeding issues; no blood in urine, stool or nosebleeds. He does acknowledge fatigue in the morning. He denies any decrease in energy level, myalgias, or claudication. He does not have edema, or sudden weight gain. He denies dizziness, lightheadedness, syncopal or near syncopal episodes, and headaches. Intake Vital Signs 01/21/23 08:26 04/06/24 08:54 Height 6 ft 1 in 6 ft 1 in Weight: 264 lb BMI 34.8 BP 136/85 H Blood Pressure Location Lt brachial Position Sitting Respiration 16 Pulse 70 Pulse Source NIBP Intake Visit Reasons: 1 Y FU/PREV PFM Head Chopper Required: No Accompanied by: Self Is patient in pain?: No Allergies hydrocodone bitartrate (From Vicodin) Allergy (Verified 04/06/24 11:30) Swelling oxycodone HCl (From Percocet) Allergy (Verified 04/06/24 11:30) Other minocycline Adverse Reaction (Unknown, Verified 04/06/24 11:30) Unknown Medications ???Medication ???Instructions ???Recorded ???Confirmed ???Type escitalopram oxalate 5 mg tablet 5 mg PO DAILY 08/13/17 04/06/24 History multivitamin 1 tab PO QDAY 09/28/17 04/06/24 History metformin 500 mg tablet 500 mg PO BID 11/10/18 04/06/24 History atorvastatin 10 mg tablet 10 mg PO .COMPLEX 12/14/21 04/06/24 History irbesartan 75 mg tablet 75 mg PO DAILY 12/14/21 04/06/24 History amlodipine 2.5 mg tablet 2.5 mg PO QDAY 04/06/24 04/06/24 History cetirizine 10 mg capsule (All Day 10 mg PO QDAY PRN 04/06/24 04/06/24 History Allergy (cetirizine)) sildenafil 50 mg tablet 50 mg PO QDAY PRN 04/06/24 04/06/24 History Ejection fraction %: 55 Have you fallen in the past year?: No PFSH Medical History Type 2 diabetes mellitus GERD (gastroesophageal reflux disease) LBBB (left bundle branch block) Nonrheumatic mitral (valve) prolapse Hyperlipidemia Surgical History History of surgery on lower extremity History of spinal surgery History of shoulder surgery History of inguinal hernia repair History of vasectomy Family History Mother Hypertension Father Hypertension Diabetes Presence of permanent cardiac pacemaker Social History Smoking Status: Never smoker ROS Const Const: Negative for fatigue, weakness, headache(s) or weight gain ENT ENT: Negative for headache(s), dizziness (RLE r/t previous orthopedic surgery and injury), Nosebleed/epistaxis or balance problems Cardio Chest Pain: No Palpitations: No Edema: None Muscle aches with walking: None Resp Respiratory: Negative for SOB with activity, SOB at rest or SOB orthopnea SOB lying down GI GI: Positive for heartburn (occasional); Negative nausea or vomiting Musc Musc: Positive for muscle aches/ myalgia (RLE (previous surgery, similar in presentation)); Negative for muscle weakness, joint pain or balance problems Neuro Neuro: Negative for dizziness (RLE r/t previous orthopedic surgery and injury), lightheadedness, near syncope, syncope, headache(s) or weakness Endo Endo: Negative for fatigue Cardiology Exam Const Appearance: cooperative, healthy appearing, comfortable, no acute distress, well developed and well groomed Nutritional Appearance: average body habitus and obese Orientation: alert, awake and oriented x3 Head Head: normal to inspection, normocephalic and atraumatic Ears: hearing grossly normal bilaterally Nose: external nose normal Face and Sinus: face symmetric Eyes Eyelids: eyelids normal Conjunctivae: conjunctivae normal Pupils: PERRL EOM: EOM intact bilaterally Neck Neck: normal visual inspection and full ROM Carotids: normal carotid upstroke Chest Chest inspection: normal inspection of the chest, symmetric chest movement and normal respiratory effort Auscultation: Bilateral: Clear to Auscultation Cardio Rate: regular rate Rhythm: regular rhythm Heart sounds: S1 normal and S2 normal GI GI: normal to inspection, soft and obese Ne (more content not included)... Normal [facility] Absolute lymphocyte countOrd ered By: Kb Sears on 10-22-2022 Lymphocytes Auto (Unsp spec) [#/Vol] 1.40 10*3/uL 0.83-4.51 [facility] Basophil percentageOrdered B y: Kb Sears on 10-22-2022 Basophils/100 WBC (Bld) 0.3 % 0-1 [facility] Bilirubin [Mass/Vol] 1.10 mg/dL 0.20-1.00 [facility] Comment on above: For patients on eltr ombopag therapy, use of Dimension [place] TBIL is not recommended. Chloride [Moles/Vol] 101 mmol/L 98-107 [facility] Cholesterol [Mass/Vol] 168 mg/dL <200 [facility] Comment on above: <200 mg/dL Desirable 200-240 mg/dL Borderline >240 mg/dL High Risk Eosinophils/100 WBC (Bld) 2.1 % 0-5 [facility] Glucose [Mass/Vol] 105 mg/dL 74-106 [facility] Comment on above: Fasting Glucose resu lt from 100 to 125 mg/dL suggests IMPAIRED HOMEOSTASIS per A.D.A. criteria. Neutrophils (Bld) [#/Vol] 6.5 10*3/uL 2.0-7.7 [facility] Neutrophils/100 WBC (Bld) 74.3 % 47-70 [facility] Potassium [Moles/Vol] 4.4 mmol/L 3.5-5.1 [facility] Protein [Mass/Vol] 7.9 g/dL 6.4-8.2 [facility] Sodium [Moles/Vol] 137 mmol/L 136-145 [facility] Triglyceride [Mass/Vol] 63 mg/dL <199 [facility] Comment on above: The drugs N-Acetylcy steine and Metamizole may falsely depress this assay.Serum Triglycerides Reference Interval Normal <150 mg/dL Borderline high 150 - 199 mg/dL High 200 - 499 mg/dL Very High > or = 500 mg/dL WBC (Bld) [#/Vol] 8.7 10*3/uL 4.4-11.0 [facility] Blood erythrocytes count (nu mber/volume)Ordered By: Kb Sears on 10-22-2022 RBC (Bld) [#/Vol] 5.60 10*6/uL 4.6-6.2 [facility] Blood hemoglobin measurement (mass/volume)Ordered By: bK Sears on 10-22-2022 Hemoglobin (Bld) [Mass/Vol] 15.0 g/dL 13.0-16.5 [facility] Blood lymphocytes/100 leukoc ytesOrdered By: Kb Sears on 10-22-2022 Lymphocytes/100 WBC (Bld) 16.1 % 19-41 [facility] Blood monocytes/100 leukocyt esOrdered By: Kb Sears on 10-22-2022 Monocytes/100 WBC (Bld) 7.0 % 0-10 [facility] Blood platelet mean volumeOr dered By: Kb Sears on 10-22-2022 Platelet mean volume (Bld) [Entitic vol] 9.8 fL 6.2-12.0 [facility] Determination of erythrocyte mean corpuscular volume (MCV)Ordered By: Kb Sears on 10-22-2022 MCV (RBC) [Entitic vol] 82.1 fL 80-94 [facility] Hematocrit Auto (Bld) [Volum e fraction]Ordered By: Kb Sears on 10-22-2022 Hematocrit (Bld) [Volume fraction] 46.0 % 40-54 [facility] Laboratory - Chemistry and C hemistry - challengeOrdered By: Kb Sears on 10-22-2022 ALP [Catalytic activity/Vol] 58 U/L 45-117 [facility] ALT [Catalytic activity/Vol] 38 U/L 16-61 [facility] CO2 [Moles/Vol] 30.0 mmol/L 21.0-32.0 [facility] Globulin (S) [Mass/Vol] 3.9 g/dL 2.2-4.2 [facility] Urea nitrogen/Creatinine [Mass ratio] 17.1 mg/mg 10-20 [facility] Laboratory - Hematology and Cell countsOrdered By: Kb Sears on 10-22-2022 Erythrocyte distribution width (RBC) [Entitic vol] 42.7 fL 35.1-43.9 [facility] Erythrocyte distribution width (RBC) [Ratio] 14.4 % 11.6-14.6 [facility] Immature granulocytes/100 WBC (Bld) 0.200 % 0.0-0.9 [facility] Comment on above: IG% - Immature Granu locytes (promyelocytes, myelocytes and metamyelocytes) > 1% indicates that a LEFT SHIFT is Present. MCH (RBC) [Entitic mass] 26.8 pg 27.0-32.0 [facility] Nucleated RBC/100 WBC (Bld) [Ratio] 0 % 0-5 [facility] MCHC Auto (RBC) [Mass/Vol]Or dered By: Kb Sears on 10-22-2022 MCHC (RBC) [Mass/Vol] 32.6 g/dL 32-36 [facility] No Panel InformationOrdered By: Kb Sears on 10-22-2022 Estimated GFR (MDRD) Amer 92 mL/min >60 [facility] Comment on above: GFR Calc Estimated GFR (MDRD) Non-Af Amer 76 mL/min >60 [facility] Comment on above: Non- GFR Calc Prostate Specific Antigen Total 3.56 ng/mL 0.0-4.0 [facility] Comment on above: This test was perfor med using the TPSA assay method for the[employer] chemistry system. Values obtained with differentassay methods cannot be used interchangably.When changing PSA assays in the course of monitoring apatient, additional sequential testing should be carriedout to confirm baseline values. Thyroid Stimulating Hormone (TSH) 1.87 uIU/mL 0.358-3.74 [facility] Platelets bldOrdered By: Monica Sears on 10-22-2022 Platelets (Bld) [#/Vol] 248 10*3/uL 150-450 [facility] Serum or plasma albumin emma urement (mass/volume)Ordered By: Kb Sears on 10-22-2022 Albumin [Mass/Vol] 4.0 g/dL 3.2-5.0 [facility] Serum or plasma albumin/glob ulin mass ratioOrdered By: Kb Sears on 10-22-2022 Albumin/Globulin [Mass ratio] 1.0 {ratio} 0.9-2.4 [facility] Serum or plasma calcium emma urement (mass/volume)Ordered By: Kb Sears on 10-22-2022 Calcium [Mass/Vol] 9.5 mg/dL 8.5-10.1 [facility] Serum or plasma cholesterol in HDL measurement (mass/volume)Ordered By: Kb Sears on 10-22-2022 Cholesterol in HDL [Mass/Vol] 85 mg/dL >40 [facility] Comment on above: The drugs N-Acetylcy steine and Metamizole may falsely depress this assay. Reference Range HDL <40 mg/dL Low HDL Cholesterol HDL >or= 60 mg/dL High HDL Cholesterol Serum or plasma cholesterol in VLDL measurement (mass/volume)Ordered By: Kb Sears on 10-22-2022 Cholesterol in VLDL [Mass/Vol] 13 mg/dL 5-40 [facility] Serum or plasma creatinine m easurement (mass/volume)Ordered By: Kb Sears on 10-22-2022 Creatinine [Mass/Vol] 1.05 mg/dL 0.70-1.30 [facility] Comment on above: The validity of the calculated GFR & GFRAA in patients over 70 years has not been determined. Clinical correlation is essential. Serum or plasma low density lipoprotein (LDL) cholesterol measurement (mass/volume)Ordered By: Kb Sears on 10-22-2022 Cholesterol in LDL [Mass/Vol] 70 mg/dL 0-130 [facility] Serum or plasma urea nitroge n measurement (mass/volume)Ordered By: Kb Sears on 10-22-2022 Urea nitrogen [Mass/Vol] 18 mg/dL 7-18 [facility] Thin prep Papanicolaou smear with manual screeningOrdered By: Kb Sears on 10-22-2022 Thin prep Papanicolaou smear with manual screening 20 U/L 15-37 [facility] Thin prep Papanicolaou smear with manual screening 6 5-15 [facility] Basophil percentageon 2021 Bilirubin [Mass/Vol] 0.90 mg/dL 0.20-1.00 [facility] Work Phone: Comment on above: For patients on eltr ombopag therapy, use of Dimension [place] TBIL is not recommended. Chloride [Moles/Vol] 101 mmol/L 98-107 [facility] Work Phone: Cholesterol [Mass/Vol] 175 mg/dL <200 [facility] Work Phone: Comment on above: <200 mg/dL Desirable 200-240 mg/dL Borderline >240 mg/dL High Risk Glucose [Mass/Vol] 112 mg/dL 74-106 [facility] Work Phone: Comment on above: Fasting Glucose resu lt from 100 to 125 mg/dL suggests IMPAIRED HOMEOSTASIS per A.D.A. criteria. Potassium [Moles/Vol] 3.9 mmol/L 3.5-5.1 [facility] Work Phone: Protein [Mass/Vol] 7.5 g/dL 6.4-8.2 [facility] Work Phone: Sodium [Moles/Vol] 137 mmol/L 136-145 [facility] Work Phone: Triglyceride [Mass/Vol] 96 mg/dL <199 [facility] Work Phone: Comment on above: The drugs N-Acetylcy steine and Metamizole may falsely depress this assay.Serum Triglycerides Reference Interval Normal <150 mg/dL Borderline high 150 - 199 mg/dL High 200 - 499 mg/dL Very High > or = 500 mg/dL Laboratory - Chemistry and C hemistry - challengeon 09-24-2021 ALP [Catalytic activity/Vol] 52 U/L 45-117 [facility] Work Phone: ALT [Catalytic activity/Vol] 41 U/L 16-61 [facility] Work Phone: CO2 [Moles/Vol] 28.0 mmol/L 21.0-32.0 [facility] Work Phone: Globulin (S) [Mass/Vol] 3.5 g/dL 2.2-4.2 [facility] Work Phone: Urea nitrogen/Creatinine [Mass ratio] 13.3 mg/mg 10-20 [facility] Work Phone: No Panel Informationon 09-24 Estimated GFR (MDRD) Amer 85 mL/min >60 [facility] Work Phone: Comment on above: GFR Calc Estimated GFR (MDRD) Non-Af Amer 70 mL/min >60 [facility] Work Phone: Comment on above: Non- GFR Calc Prostate Specific Antigen Total 3.61 ng/mL 0.0-4.0 [facility] Work Phone: Comment on above: This test was perfor med using the TPSA assay method for the[employer] chemistry system. Values obtained with differentassay methods cannot be used interchangably.When changing PSA assays in the course of monitoring apatient, additional sequential testing should be carriedout to confirm baseline values. Urine Microalbumin/Creatinine Ratio 3.2 mg/g CRE <30 [facility] Work Phone: Serum or plasma albumin emma urement (mass/volume)on 09-24-2021 Albumin [Mass/Vol] 4.0 g/dL 3.2-5.0 [facility] Work Phone: Serum or plasma albumin/glob ulin mass ratioon 09-24-2021 Albumin/Globulin [Mass ratio] 1.1 {ratio} 0.9-2.4 [facility] Work Phone: Serum or plasma calcium emma urement (mass/volume)on 09-24-2021 Calcium [Mass/Vol] 9.2 mg/dL 8.5-10.1 [facility] Work Phone: Serum or plasma cholesterol in HDL measurement (mass/volume)on 09-24-2021 Cholesterol in HDL [Mass/Vol] 73 mg/dL >40 [facility] Work Phone: Comment on above: The drugs N-Acetylcy steine and Metamizole may falsely depress this assay. Reference Range HDL <40 mg/dL Low HDL Cholesterol HDL >or= 60 mg/dL High HDL Cholesterol Serum or plasma cholesterol in VLDL measurement (mass/volume)on 09-24-2021 Cholesterol in VLDL [Mass/Vol] 19 mg/dL 5-40 [facility] Work Phone: Serum or plasma creatinine m easurement (mass/volume)on 09-24-2021 Creatinine [Mass/Vol] 1.13 mg/dL 0.70-1.30 [facility] Work Phone: Comment on above: The validity of the calculated GFR & GFRAA in patients over 70 years has not been determined. Clinical correlation is essential. Serum or plasma low density lipoprotein (LDL) cholesterol measurement (mass/volume)on 09-24-2021 Cholesterol in LDL [Mass/Vol] 83 mg/dL 0-130 [facility] Work Phone: Serum or plasma urea nitroge n measurement (mass/volume)on 09-24-2021 Urea nitrogen [Mass/Vol] 15 mg/dL 7-18 [facility] Work Phone: Thin prep Papanicolaou smear with manual screeningon 09-24-2021 Thin prep Papanicolaou smear with manual screening 25 U/L 15-37 [facility] Work Phone: Thin prep Papanicolaou smear with manual screening 8 5-15 [facility] Work Phone: Thin prep Papanicolaou smear with manual screening 8.3 mg/L NO RANGE EST. [facility] Work Phone: Urine creatinine measurement (mass/volume)on 09-24-2021 Creatinine (U) [Mass/Vol] 256.00 mg/dL NO RANGE EST. [facility] Work Phone: Whole blood hemoglobin A1c/t otal hemoglobin ratio (mass fraction)on 09-24-2021 HbA1c (Bld) [Mass fraction] 6.5 % 3.8-5.6 [facility] Work Phone: Comment on above: Normal < 5.7 % Predi abetic 5.7 - 6.4 % Diabetic >or= 6.5 % Please note range changes. 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 Left ventricular Ejection fraction 60 % [facility] [employer] Work Phone: [phone] Office Visiton 09-22-2015 Protein mass conc Done [facility] [employer] Work Phone: [phone] Tobacco smoking status NHIS Never smoker [facility] Work Phone: [phone] Lab Report: Lipid Profileon 02-20-2015 Cholesterol in HDL mass conc 67 mg/dL [facility] Work Phone: [phone] Cholesterol in LDL mass conc 108 mg/dL 0-130 [facility] [employer] Work Phone: [phone] Cholesterol mass conc 197 mg/dL 200 [facility] [employer] Work Phone: [phone] Lipoprotein.pre-beta mass conc 22 mg/dL 5-40 [facility] Work Phone: [phone] Triglyceride mass conc 112 mg/dL [facility] Work Phone: [phone] Lab Report: Liver Profileon 02-20-2015 Albumin mass conc 4.2 g/dL 3.4-5.0 [facility] Work Phone: [phone] ALP enzyme act/vol (Bld) 56 U/L 50-136 [facility] Work Phone: [phone] ALT enzyme act/vol 62 U/L 12-78 [facility] Work Phone: [phone] AST enzyme act/vol 44 U/L High 15-37 [facility] Work Phone: [phone] Bilirubin mass conc 0.70 mg/dL 0.20-1.00 [facility] Work Phone: [phone] Bilirubin.direct mass conc 0.13 mg/dL 0.00-0.30 [facility] Work Phone: [phone] Globulin mass conc (S) 3.5 g/dL 2.3-3.5 [facility] Work Phone: [phone] Protein mass conc 7.7 g/dL 6.4-8.2 [facility] Work Phone: [phone] Office Visiton 08-19-2014 cardiac risk group B [facility] Work Phone: [phone] General cardiovascular disease 10Y risk [#] Bradford.D'Agostino 2 % [facility] Work Phone: [phone] Clinical 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 12-29-2013 Anion gap molar conc 4 mmol/L [facility] Work Phone: [phone] Calcium mass conc 8.9 mg/dL [facility] Work Phone: [phone] Chloride molar conc 105 mmol/L [facility] Work Phone: [phone] CO2 ppres (BldV) 28.0 mmol/L [facility] Work Phone: [phone] Creatinine mass conc 1.3 mg/dL [facility] Work Phone: [phone] Glucose mass conc 87 mg/dL [facility] Work Phone: [phone] Hematocrit Volume Fraction (Bld) 42.8 % [facility] Work Phone: [phone] Hemoglobin mass conc (Bld) 14.2 g/dL [facility] Work Phone: [phone] MCH Entitic mass (RBC) 27.5 pg [facility] Work Phone: [phone] MCHC mass conc (RBC) 33.2 g/dL [facility] Work Phone: [phone] MCV Entitic volume (RBC) 82.9 fL [facility] Work Phone: [phone] Platelets #/vol (Bld) 194 10*3/mm3 [facility] Work Phone: [phone] Potassium molar conc 4.1 mmol/L [facility] Work Phone: [phone] RBC #/vol (Bld) 5.16 10*6/uL [facility] Work Phone: [phone] Sodium molar conc 137 mmol/L [facility] Work Phone: [phone] Urea nitrogen mass conc 15 mg/dL [facility] Work Phone: [phone] Urea nitrogen/Creatinine mass ratio 11.5 mg/mg [facility] Work Phone: [phone] WBC #/vol (Bld) 6.5 10*3/uL [facility] Work Phone: [phone] Lab Report: LIVER 10-26-19 14 ALK 53 U/L Normal 45-117 [facility] Work Phone: [phone] Replaced Document: Ziyad Rodriguez [facility] 08-13-2013 EKG QRS axis -48 deg [facility] Work Phone: [phone] Interpretation Sinus Bradycardia -First degree A-V block Saad = 220Low voltage in precordial leads. -Left axis -anterior fascicular block. ABNORMAL [facility] Work Phone: [phone] P [place] 52 deg [facility] Work Phone: [phone] HI Interval 220 ms [facility] Work Phone: [phone] QRS Duration 94 ms [facility] Work Phone: [phone] QT Interval new path ms [facility] Work Phone: [phone] T [place] 23 deg [facility] Work Phone: [phone] Lab Reporton 09-21-2012 Globulin mass conc (S) 2.4 g/dL [facility] Work Phone: [phone] Cholesterol.total/Jossy sterol in HDL mass ratio 2.39 {ratio} [facility] Work Phone: [phone] Office Visiton 09-16-2011 Protein mass conc no [facility] Work Phone: [phone] Clinical 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 Kb Sears MD Work Phone: [facility] 11-16-2024 08:20-0400 Diastolic blood pressure 84 mm[Hg] Dr. Kb Sears MD Work Phone: [facility] 11-16-2024 08:20-0400 Heart rate 56 /min Dr. Kb Sears MD Work Phone: [facility] 11-16-2024 08:20-0400 SaO2% (BldA) [Mass fraction] 100 % Dr. Kb Sears MD Work Phone: [facility] 11-16-2024 08:20-0400 Systolic blood pressure 138 mm[Hg] Dr. Kb Sears MD Work Phone: [facility] 11-06-2024 13:36-0400 Body height 185.[address] Kb Sears MD Work Phone: [facility] 11-06-2024 13:36-0400 Body mass index (BMI) [Ratio] 34.3 kg/m2 Dr. Kb Sears MD Work Phone: [phone] [place] [address] 11-06-2024 13:36-0400 Body temperature 97.2 [degF] Dr. Kb Sears MD Work Phone: [phone] [place] [address] 11-06-2024 13:36-0400 Body weight 118.[address] Kb Sears MD Work Phone: [phone] [place] [address] 11-06-2024 13:36-0400 Diastolic blood pressure 88 mm[Hg] Dr. Kb Sears MD Work Phone: [phone] [place] [address] 11-06-2024 13:36-0400 Heart rate 60 /min Dr. Kb Sears MD Work Phone: [phone])[phone] [place] [address] 11-06-2024 13:36-0400 Respiratory rate 18 /min Dr. Kb Sears MD Work Phone: [phone])371-452806 [place] [address] 11-06-2024 13:36-0400 SaO2% (BldA) [Mass fraction] 100 % Dr. Kb Sears MD Work Phone: [phone] [place] [address] 11-06-2024 13:36-0400 Systolic blood pressure 152 mm[Hg] Dr. Kb Sears MD Work Phone: [phone] [place] [address] 01-21-2023 08:46-0400 Diastolic blood pressure 80 mm[Hg] Dr. Kb Sears Work Phone: [phone])[phone] [place] [address] 01-21-2023 08:46-0400 Systolic blood pressure 130 mm[Hg] Dr. Kb Sears Work Phone: [phone] [place] [address] 01-21-2023 08:26-0400 Body height 185.[address] Kb Sears Work Phone: [phone] [place] [address] 01-21-2023 08:26-0400 Body mass index (BMI) [Ratio] 34.2 kg/m2 Dr. Kb Sears Work Phone: 3([phone])381-404506 [place] [address] 01-21-2023 08:26-0400 Body weight 117.[address] Kb Sears Work Phone: [facility] 01-21-2023 08:26-0400 Heart rate 69 /min Dr. Kb Sears Work Phone: [facility] 01-21-2023 08:26-0400 Respiratory rate 18 /min Dr. Kb Sears Work Phone: [facility] 01-21-2023 08:26-0400 SaO2% (BldA) [Mass fraction] 97 % Dr. Kb Sears Work Phone: [facility] 12-14-2021 08:33-0400 Body height 185.[address] Kb Sears Work Phone: [facility] Work Phone: 12-14-2021 08:33-0400 Body mass index (BMI) [Ratio] 34.7 kg/m2 Dr. Kb Sears Work Phone: [facility] Work Phone: 12-14-2021 08:33-0400 Body weight 119.[address] Kb Sears Work Phone: [facility] Work Phone: 12-14-2021 08:33-0400 Diastolic blood pressure 76 mm[Hg] Dr. Kb Sears Work Phone: [facility] Work Phone: 12-14-2021 08:33-0400 Heart rate 68 /min Dr. Kb Sears Work Phone: [facility] Work Phone: 12-14-2021 08:33-0400 Respiratory rate 16 /min Dr. Kb Sears Work Phone: [facility] Work Phone: 12-14-2021 08:33-0400 Systolic blood pressure 138 mm[Hg] Dr. Kb Sears Work Phone: [facility] Work Phone: 10-22-2016 09:37-0400 BMI (Body Mass Index) 29.15 kg/m2 [facility] Sunita [facility] Work Phone: 10-22-2016 09:37-0400 BP Diastolic 84 mm[Hg] [facility] Work Phone: 10-22-2016 09:37-0400 BP Systolic 132 mm[Hg] [facility] Work Phone: 10-22-2016 09:37-0400 Height 185.42 cm [facility] Work Phone: 10-22-2016 09:37-0400 Pulse (Heart Rate) 62 /min [facility] Work Phone: 10-22-2016 09:37-0400 Respiratory Rate 20 /min [facility] Work Phone: 10-22-2016 09:37-0400 Weight 100.25 kg [facility] Work Phone: 09-22-2015 08:31-0400 BMI (Body Mass Index) 32.24 kg/m2 Tori [facility] Work Phone: 09-22-2015 08:31-0400 BP Diastolic 70 mm[Hg] [facility] Work Phone: 09-22-2015 08:31-0400 BP Systolic 124 mm[Hg] [facility] Work Phone: 09-22-2015 08:31-0400 BSA (Body Surface Area) 2.35 m2 [facility]i [facility] Work Phone: 09-22-2015 08:31-0400 Pulse (Heart Rate) 64 /min [facility] Work Phone: 09-22-2015 08:31-0400 Respiratory Rate 12 /min Tori [facility] Work Phone: 09-22-2015 08:31-0400 Weight 110.86 kg Tori Landers RN [facility] Work Phone: 08-13-2013 09:33-0400 Heart rate 55 /min Tori Landers RN [facility] Work Phone: 04-13-2011 15:20-0500 Height 185.42 cm Tori Landers RN [facility] [place]Note 2] Group Work Phone: Encounters Encounter Date Encounter Type Care Provider Facility Start: 12-18-2024 ambulatory Mando Estevez lity:[facility] Start: 11-16-2024 End: 11-16-2024 Admission to same day surgery center Dr. Mando Hall [facility] Start: 11-16-2024 End: 11-16-[address] Kb Sears MD Work Phone: [facility] Start: 11-06-2024 End: 11-06-[address] Mando Hall MD -[facility] Work Phone: Start: 11-06-2024 End: 11-06-[address] Kb Sears MD Work Phone: -[facility] Start: 11-02-2024 End: 11-02-[address] Kb Sears MD Work Phone: -Radiology [facility] Start: 11-02-2024 End: 11-02-[address] Kb Sears MD -Radiology [facility] Work Phone: Start: 11-02-2024 End: 11-02-2024 ambulatory Kb Sears Facility:[facility] Start: 10-25-2024 End: 10-25-[address] Kb Sears MD Work Phone: -[facility] Start: 10-25-2024 End: 10-25-[address] Kb Sears MD -[facility] Start: 10-25-2024 End: 10-25-2024 ambulatory Kb Sears Facility:[facility] Start: 04-09-2024 End: 04-09-2024 ambulatory Kb Sears Facility:[facility] Start: 04-06-2024 End: 04-06-2024 ambulatory bK Sears Facility:[facility] [place] Start: 02-21-2023 Non-patient / Non-visit Dr. Kb Sears Work Phone: [facility] Work Phone: Start: 02-21-2023 Non-patient / Non-visit Dr. Kb Sears Work Phone: [facility] Start: 02-21-2023 End: 02-21-[address] Kb Sears Work Phone: [facility] Work Phone: Start: 02-21-2023 End: 02-21-[address] [facility] Sears [facility] Work [facility]: Start: 02-08-2023 End: 02-08-[address] Kb Sears Work Phone: [facility] Work Phone: Start: 02-08-2023 End: 02-08-[address] Kb Sears Work Phone: [facility] Work Phone: Start: 01-21-2023 End: 01-21-[address] Kb Sears Work Phone: [facility] Work Phone: Start: 10-22-2022 End: 10-22-[address] Kb Sears Work Phone: [facility] Start: 03-05-2022 End: 03-05-[address] Kb Sears Work Phone: [facility] Work Phone: Start: 03-05-2022 End: 03-05-[address] Kb Sears Work Phone: [facility] Start: 02-02-2022 End: 02-02-[address] Kb Sears Work Phone: [facility] Start: 12-14-2021 End: 12-14-[address] Kb Sears Work Phone: [facility] Start: 09-24-2021 End: 09-24-2021 Patient encounter procedure [facility]-Laboratory, Specimen Procedures Date Procedure Procedure Detail Performing Clinician Start: 11-16-[address] Florinda Sears MD Work Phone: Start: 11-02-2024 X-ray of esophagus w ith double contrast Dr. Kb Sears MD Work Phone: Start: 10-25-2024 Assay of prostate sp ecific antigen total Dr. Kb Sears MD Work Phone: Comment on above: This test was perfor med using the [employer] tPSA method. Measured values of a patient sample can vary depending on the testing procedure used. PSA values determined on patient samples by different testing procedures cannot be used interchangeably. If there is a change in PSA assays while monitoring therapy, sequential testing should be performed to confirm baseline values. Start: 03-05-2022 MRI of lower extremity Dr. Kb Sears Work Phone: Start: 02-02-2022 X-ray of both feet Dr. Kb Sears Work Phone: Start: 10-22-2016 End: 10-22-2016 Follow Up Appt 1 year Balaji Fields Start: 10-22-2016 End: 10-22-2016 PFM Balaji Simental MD Start: 09-22-2015 End: 09-22-2015 Dietary management education, guidance, and counseling Tori Landers RN Start: 09-22-2015 End: 09-22-2015 Follow Up Appt 1 year Balaji Fields Start: 09-22-2015 End: 09-22-2015 PFM Balaji Simental MD Start: 02-02-2015 End: 02-20-2015 *Hepatic Function Panel Balaji Simental MD Start: 02-02-2015 End: 02-20-2015 Lipid 1996 panel - Serum or Plasma Balaji Simental MD Start: 08-19-2014 End: 08-29-2014 *Hepatic Function Panel Balaji Simental MD Start: 08-19-2014 End: 08-19-2014 Follow Up Appt 1 year Balaji Fields Start: 08-19-2014 End: 08-29-2014 Lipid 1996 panel - Serum or Plasma Balaji Simental MD Start: 08-19-2014 End: 08-19-2014 PFM Balaji Simental MD Start: 01-10-2014 End: 01-10-2014 Follow Up Appt 6 months Balaji Simental MD Start: 01-10-2014 End: 10-12-2016 Follow Up Appt Other Balaji Simental MD Start: 01-10-2014 End: 01-10-2014 MMM Balaji Simental MD Start: 01-10-2014 End: 10-12-2016 Nuclear stress test -exercise Balaji Simental MD Start: 10-02-2013 End: 10-25-2013 *Hepatic Function Panel Balaji Simental MD Start: 10-02-2013 End: 10-25-2013 Lipid 1996 panel - Serum or Plasma Balaji Simental MD Start: 08-13-2013 End: 10-25-2013 Ecg routine ecg w/least 12 lds w/i&r Balaji Simental MD Start: 08-13-2013 End: 10-12-2016 Follow Up Appt 1 year Balaji Fields Start: 08-13-2013 End: 10-12-2016 PFM Balaji Simental MD Start: 02-02-2013 End: 05-09-2013 *Hepatic Function Panel Balaji Simental MD Start: 02-02-2013 End: 05-09-2013 Lipid 1996 panel - Serum or Plasma Balaji Simental MD Start: 09-02-2012 End: 10-09-2012 *Hepatic Function Panel Balaji Simental MD Start: 09-02-2012 End: 10-09-2012 Lipid 1996 panel - Serum or Plasma Balaji Simental MD Start: 08-14-2012 End: 11-03-2012 *Hepatic Function Panel Balaji Simental MD Start: 08-14-2012 End: 08-14-2012 Follow Up Appt 1 year Balaji Fields Start: 08-14-2012 End: 11-03-2012 Lipid 1996 panel - Serum or Plasma Balaji Simental MD Start: 08-14-2012 End: 08-14-2012 PFM Balaji Simental MD Start: 09-16-2011 End: 10-05-2011 *Hepatic Function Panel Balaji Simental MD Start: 09-16-2011 End: 09-16-2011 Follow Up Appt 1 year Balaji Fields Start: 09-16-2011 End: 10-05-2011 Lipid 1996 panel - Serum or Plasma Balaji Simental MD Start: 04-21-2011 End: 10-05-2011 *Hepatic Function Panel Balaji Simental MD Start: 04-21-2011 End: 10-05-2011 Lipid 1996 panel - Serum or Plasma Balaji Simental MD Start: 04-13-2011 End: 10-25-2013 Echocardiography Balaji Simental MD Start: 04-13-2011 End: 04-14-2011 Follow Up Appt Other Balaji Simental MD Start: 04-13-2011 End: 10-25-2013 Nuclear stress test -exercise Balaji Simental MD Start: 04-09-2011 End: 09-12-2015 Preoperative cardiovascular examination PRE-OPERATIVE CARDIOVASCULAR EXAMINATION Tori Landers RN Plan of Treatment Date Care Activity Detail Author Start: 11-16-2024 Patient discharge [facility] Start: 10-17-2017 End: 10-17-2017 Appointment Appointment [facility] Work Phone: Start: 10-22-2016 End: 10-22-2016 Appointment Appointment [facility] Work Phone: Start: 10-22-2016 End: 10-22-2016 Follow Up Appt 1 year Follow Up Appt 1 year [facility] Work Phone: Start: 10-22-2016 End: 10-22-2016 PFM PFM [facility] Work Phone: Start: 02-23-2016 End: 02-20-2015 *Hepatic Function Panel *Hepatic Function Panel [facility] Work Phone: Start: 02-23-2016 End: 02-20-2015 Lipid 1996 panel *Lipid Profile CC PCP [facility] Work Phone: Start: 09-22-2015 End: 09-22-2015 *Hepatic Function Panel *Hepatic Function Panel [facility] Work Phone: Start: 09-22-2015 End: 09-22-2015 Follow Up Appt 1 year Follow Up Appt 1 year [facility] Work Phone: Start: 09-22-2015 End: 09-22-2015 Lipid 1996 panel *Lipid Profile CC PCP [facility] Work Phone: Start: 09-22-2015 End: 09-22-2015 PFM PFM [facility] Work Phone: Start: 02-02-2015 End: 08-29-2014 *Hepatic Function Panel *Hepatic Function Panel [facility] Work Phone: Start: 02-02-2015 End: 08-29-2014 Lipid 1996 panel *Lipid Profile CC PCP [facility] Work Phone: Start: 08-19-2014 End: 08-29-2014 *Hepatic Function Panel *Hepatic Function Panel [facility] Work Phone: Start: 08-19-2014 End: 08-19-2014 Follow Up Appt 1 year Follow Up Appt 1 year [facility] Work Phone: Start: 08-19-2014 End: 08-29-2014 Lipid 1996 panel *Lipid Profile CC PCP [facility] Work Phone: Start: 08-19-2014 End: 08-19-2014 PFM PFM [facility] Work Phone: Start: 01-10-2014 End: 01-10-2014 Follow Up Appt 6 months Follow Up Appt 6 months [facility] Work Phone: Start: 01-10-2014 End: 01-10-2014 Follow Up Appt Other Follow Up Appt Other [facility] Work Phone: Start: 01-10-2014 End: 01-10-2014 MMM MMM [facility] Work Phone: Start: 01-10-2014 End: 01-10-2014 Nuclear stress test -exercise Nuclear stress test -exercise [facility] Work Phone: Start: 10-02-2013 End: 10-25-2013 *Hepatic Function Panel *Hepatic Function Panel [facility] Work Phone: Start: 10-02-2013 End: 10-25-2013 Lipid 1996 panel *Lipid Profile CC PCP [facility] Work Phone: Start: 08-13-2013 End: 10-25-2013 Ecg routine ecg w/least 12 lds w/i&r EKG (In office) [facility] Work Phone: Start: 08-13-2013 End: 10-12-2016 Follow Up Appt 1 year Follow Up Appt 1 year [facility] Work Phone: Start: 08-13-2013 End: 10-12-2016 PFM PFM [facility] Work Phone: Start: 02-02-2013 End: 05-09-2013 *Hepatic Function Panel *Hepatic Function Panel [facility] Work Phone: Start: 02-02-2013 End: 05-09-2013 Lipid 1996 panel *Lipid Profile CC PCP [facility] Work Phone: Start: 09-02-2012 End: 10-09-2012 *Hepatic Function Panel *Hepatic Function Panel [facility] Work Phone: Start: 09-02-2012 End: 10-09-2012 Lipid 1996 panel *Lipid Profile [facility] Work Phone: Start: 08-14-2012 End: 11-03-2012 *Hepatic Function Panel *Hepatic Function Panel [facility] Work Phone: Start: 08-14-2012 End: 08-14-2012 Follow Up Appt 1 year Follow Up Appt 1 year [facility] Work Phone: Start: 08-14-2012 End: 11-03-2012 Lipid 1996 panel *Lipid Profile [facility] Work Phone: Start: 08-14-2012 End: 08-14-2012 PFM PFM [facility] Work Phone: Start: 09-16-2011 End: 10-05-2011 *Hepatic Function Panel *Hepatic Function Panel [facility] Work Phone: Start: 09-16-2011 End: 09-16-2011 Follow Up Appt 1 year Follow Up Appt 1 year [facility] Work Phone: Start: 09-16-2011 End: 10-05-2011 Lipid 1996 panel *Lipid Profile [facility] Work Phone: Start: 04-21-2011 End: 10-05-2011 *Hepatic Function Panel *Hepatic Function Panel [facility] Work Phone: Start: 04-21-2011 End: 10-05-2011 Lipid 1996 panel *Lipid Profile [facility] Work Phone: Start: 04-13-2011 End: 04-14-2011 Echocardiography Echocardiogram (complete) [facility] Work Phone: Start: 04-13-2011 End: 04-14-2011 Follow Up Appt Other Follow Up Appt Other [facility] Work Phone: Start: 04-13-2011 End: 04-14-2011 Nuclear stress test -exercise Nuclear stress test -exercise [facility] Work Phone: Patient Education [facility] Work Phone: [facility] Payers Date Payer Category Payer Self-pay [id number] 2006 Unknown [id number] Unknown [id number] Unknown [id number] 2.16.8 [id number] Unknown [id number] 2.16.8 [id number] Unknown [id number] 2.16.8 [id number] Unknown [id number] 2.16.8 [id number] Unknown [id number] 2.16.8 [id number] Unknown [id number] 2.16.8 [id number] Unknown [id number] 2.16.8 [id number] Social History Date Type Detail Facility Start: 11-17-2020 End: 01-21-2023 Tobacco smoking status MIIS Unknown if ever smoked [facility] Start: 07-22-2020 Non-smoker [facility] Start: 1960 Sex Assigned At Male [facility] Start: 01-21-2023 Tobacco smoking stat us MIIS Never smoked tobacco (finding) [facility] Mental Status Date Assessment Result Facility 11-16-2024 Cognitive function Awake;Alert;A ppropriate;Fol lows Commands [facility] Work Phone: Evaluation note 11-06-2024 Note Date & Type Note Facility 11-06-2024 Evaluation note Diagnosis Onset Date Resolution Dysphagia noneactive November 06 1:19pm [facility] Work Phone: Progress note 11-06-2024 Note Date & Type Note Facility 11-06-2024 Progress note [facility] Progress note 11-06-2024 Note Date & Type Note Facility 11-06-2024 Progress note Note Date/Time November 06, 2024 1:46pm [facility] [address] [place] [address]. [address] [place] [address] OFFICE VISIT Date of Service: 11/06/24 MR#: [id number] Acct: [id number] Name: ASIFARSH Gustavo Rep #: [id number] : 1960 Provider: Dr. Luis Hall MD Age/Sex: 64/M Location: [facility] Status: Signed Intake Vital Signs 04/06/24 08:54 11/06/24 13:36 Height 6 ft 1 in 6 ft 1 in Weight: 264 lb 260 lb 8 oz BMI 34.8 34.3 BP 136/85 H 152/88 H Blood Pressure Location Lt brachial Lt brachial Position Sitting Sitting Respiration 16 18 Pulse 70 60 Pulse Source NIBP Monitor Temp 97.2 F L Temp Source Temporal Pulse Oximetry (%) 100 Oxygen Delivery Method room air Intake Visit Reasons: Dysphagia Chief Complaint: dysphagia Is patient in pain?: No Allergies hydrocodone bitartrate (From Vicodin) Allergy (Verified 11/06/24 13:36) Swelling oxycodone HCl (From Percocet) Allergy (Verified 11/06/24 13:36) Other minocycline Adverse Reaction (Unknown, Verified 11/06/24 13:36) Unknown Medications ?Medication ?Instructions ?Recorded ?Confirmed ?Type escitalopram oxalate 5 mg tablet 5 mg PO DAILY 8 11/06/24 History multivitamin 1 tab PO QDAY 09/28/1711/06 History metformin 500 mg tablet 500 mg PO BID 11/10/1811/06 History atorvastatin 10 mg tablet 10 mg PO .COMPLEX 12/14/21 0 11/06/24 History irbesartan 75 mg tablet 75 mg PO DAILY 12/14/2108/26 History amlodipine 2.5 mg tablet 2.5 mg PO QDAY 04/06/2408/26 History cetirizine 10 mg capsule (All Day 10 mg PO QDAY PRN 11/06/24 History Allergy (cetirizine)) sildenafil 50 mg tablet 50 mg PO QDAY PRN 04/06/24 0 11/06/24 History PFSH Medical History Type 2 diabetes mellitus GERD (gastroesophageal reflux disease) LBBB (left bundle branch block) Nonrheumatic mitral (valve) prolapse Hyperlipidemia Surgical History History of surgery on lower extremity History of spinal surgery History of shoulder surgery History of inguinal hernia repair History of vasectomy Family History Mother Hypertension Father Hypertension Diabetes Presence of permanent cardiac pacemaker Social History Smoking Status: Never smoker HPI HPI HPI: Patient is a 64-year-old male here with dysphagia. He reports he had esophagealdilation about 10 years ago and his symptoms have returned. He does however saythat it feels very painful when it happens and it is in the middle of his chest. He said sometimes is difficult to breathe or talk when he has these attacks. He says this happens at least weekly if not more frequently. He feels like it happens when he tries to eat too quickly or if he has poultry. ROS General General: No weight change, appetite, fatigue, colon cancer, breast cancer or weakness HEENT HEENT: Yes difficulty swallowing and eye surgery; No eye injury, swollen glands or hoarseness Endo Endocrine: Yes diabetes mellitus; No thyroid disease, thyroid cancer, Hair loss, heat intolerance or cold intolerance Skin Skin: No rash or changing moles Musc Musculoskeletal: Yes back problems; No arthritis, rheumatoid arthritis, gout or joint pain Cardio Cardiovascular: Yes murmur and high blood pressure; No pacemaker, heart disease, atrial fibrillation, heart attack, heart stent, palpitations, shortness of breath with exertion or chest pain Psych Psychiatric: Yes anxiety; No depression or hearing voices Resp Respiratory: No shortness of breath, No sleep apnea, No cough, No COPD, No asthma, No emphysema and No wheezing Gastro Gastrointestinal: No abdominal pain, No nausea or vomiting, No diarrhea, No constipation, No blood in stool, No acid reflux, No hemorrhoids, No ulcers, No gallbladder problem and No black,tarry stools [place] Hematologic: No blood thinners, No blood disorders, No bleeding, No anemia and No blood clots Neuro Neurologic: No numbness, No tingling and No weakness Exam Const General: cooperative Orientation: alert and oriented x3 HENMT Head: normal to inspection Neck Neck: normal visual inspection and full ROM Chest Chest palpation & inspection: normal inspection of the chest Resp Effort & Inspection: normal respiratory effort Auscultation: clear to auscultation bilaterally Cardio Rate: regular rate Rhythm: regular rhythm GI Inspection: non-distended Palpation: soft and nontender Skin General: no rashes or lesions noted Neuro General: patient alert and patient oriented x3 Extrem General: full ROM Psych Appearance: grossly normal Mental Status: mental status grossly normal Assessment and Plan Assessment and Plan (1) Dysphagia: Plan: The patient has dysphagia and reports that he has spasming of his esophagus thathappens with eating. He had an upper GI which showed intermittent spasming of the mid to distal esophagus as well as reflux. I discussed with him that dilation might not be the answer and he might be having diffuse esophageal spasmas the spasms were noted on upper GI and he is experiencing a lot of pain when these attacks happen. It does not seem like painless dysphagia. I would like to start with manometry to evaluate for nutcracker esophagus versus KIRT and to evaluate the swallowing mechanism. If the manometry is normal I will proceed with EGD with dilation. Mando Hall MD Pager: [facility] [address] [place] [address], [address] [place] [address] Office: Orders: Orders Esophageal Manometry Today Coding Level of Care Code Off vis,new,level 3 Diagnoses Dysphagia R13.10 11/06/24 1346 <Electronically signed by Mando gong MD> Date _ Mando Hall MD Cosigner Signature: Date (if applicable) CC: Dr. Kb Sears MD ~ [facility] Work Phone: Radiology Diagnostic study note 11-02-2024 Note Date & Type Note Facility 11-02-2024 Radiology Diagnostic study note [facility] [address] [place] [id number] Esophagus Dual Contrast MR#: [id number] Acct: [id number] Name: ARSH ASIF Rep #: [id number] : 1960 M 64 From: Sony Perkins MD PCP: Dr. Kb Sears MD Status: REG CLI Study:Esophagus Dual Contrast Date of Exam: 11/02/24 Exam# [id number] Ordering Dr: Jh Sears MD EXAM: Single and double contrast esophagram CLINICAL HISTORY: Solid esophageal dysphagia. History of dilation. COMPARISON: None. TECHNIQUE: Single and double contrast esophagram. Fluoroscopy time 121 seconds. Dose: 37.06 mGy. FINDINGS: No area of persistent esophageal narrowing is noted. Mild intermittent mid to distal esophageal spasm is seen. Intermittent gastroesophageal reflux to the level of the proximal esophagus is seen. A very mild intermittent sliding-type hiatal hernia is noted. Limited images of the stomach and duodenum show no abnormality. Passage of the 13 mm barium tablet into the stomach is only slightly delayed, probably within the normal range. RAD/Esophagus Dual Contrast IMPRESSION: 1. Mild intermittent mid to distal esophageal spasm. 2. Intermittent gastroesophageal reflux to the level of the proximal esophagus. 3. Very mild intermittent sliding-type hiatal hernia. Reading Location: [place] [address] CC: Dr. Kb Sears MD ~ [employer]: Signed [facility] Evaluation note Note Date & Type Note Facility Evaluation note No assessment information availa [facility] Work Phone: Evaluation note Note Date & Type Note Facility Evaluation note Diagnosis Onset Date LBBB (left bundle branch block) acute Hyperlipidemia chronic Nonrheumatic mitral (valve) prolapse [facility] Work Phone: Evaluation note Note Date & Type Note Facility Evaluation note Diagnosis Onset Date Hypersomnolence acute LBBB (left bundle branch block) acute Hyperlipidemia chronic Nonrheumatic mitral (valve) prolapse [facility] Work Phone: Evaluation note Note Date & Type Note Facility Evaluation note Diagnosis Onset Date Resolution Dysphagia noneactive November 06 1:19pm [facility] Work Phone: Reason for referral (narrative) Note Date & Type Note Facility Reason for referral (narrative) No reason for referral information available [facility] Work Phone: Family History No Family History Records Found Relationship Condition Age at Onset Recorded Date/T jenna mother Hypertension Unknown father Hypertension Unknown Diabetes mellitus Unknown Presence of permanent cardiac pacemaker U nknown Advance Directives No Advanced Directives Records Found Advance Directive Response Recorded Date/ Time Living Will No July 22, 2020 12:00pm Power of Supervisor Wound No July 22 12:00pm Advance Directive Response Recorded Date/ Time Living Will No July 22, 2020 11:00am Power of Supervisor Wound No July 22 11:00am Chief Complaint and Reason for Visit Chief Complaint 1 YR F/U WITH PFM X-Rays Plantar fascial fibromatosis Reason for Visit LBBB (left bundle br anch block) Hyperlipidemia Nonrheumatic mitral (valve) prolapse Chief Complaint 1 Y FU PREV PFM Hypersomnia, unspecified Reason for Visit Hypersomnolence LBBB (left bundle branch block) Hyperlipidemia Nonrheumatic mitral (valve) prolapse Chief Complaint 1 Y FU PREV PFM Hypersomnia, unspecified Nonrheumatic mitral (valve) prolapse Amb Documentation Reason for Visit Hypersomnolence LBBB (left bundle branch block) Hyperlipidemia Nonrheumatic mitral (valve) prolapse Chief Complaint Admit Date solid esophageal dysphagia; *12 mm tab November 02, 2024 7:54am Dysphagia November 06, 2024 1:1 9pm Reason for Visit Admit Date Dysphagia November 06, 2024 1:1 9pm Summary Purpose Additional Source Comments Goals (unrecognized section and content) Goals may be documented in a n alternate sectionGoals may be documented in an alternate sectionGoals may be documented in an alternate sectionGoals may be documented in an alternate sectionGoals may be documented in an alternate sectionGoals may be documented in an alternate sectionGoals may be documented in an alternate sectionGoals may be documented in an alternate section Care Teams (unrecognized sec tion and content) Team Status: Active Member Role Status Dates Dr. Kb Sears MD Family Provider Active Dr. Kb Sears MD Primary Care Provider Active Team Status: Inactive Member Role Status Dates Dr. Kb Sears MD Primary Care Provider, Referring P jorge alberto Active Dr. Balaji Simental MD Active Minnie Little GLOBAL PROGRAM MANAGER, GLOBAL PROGRAM MANAGER-C Attending Provider Active Team Status: Inactive Member Role Status Dates Dr. Kb Sears MD Primary Care Provider, Attending P jorge alberto Active Team Status: Inactive Member Role Status Dates Dr. Kb Sears MD Primary Care Provider Active Minnie Little NP, GLOBAL PROGRAM MANAGER-C Attending Provider, Referring P romoise Active Team Status: Active Member Role Status Dates Dr. Kb Sears MD Primary Care Provider Active Dr. Chad Pritchett MD Attending Provider Active Team Status: Active Member Role Status Dates Dr. Kb Sears MD Primary Care Provider Active Minnie Little GLOBAL PROGRAM MANAGER, GLOBAL PROGRAM MANAGER-C Attending Provider Active Team Status: Active Member Role/Relationship Status Dates Dr. Kb Sears MD Primary Care Provider Active Team Status: Inactive Member Role/Relationship Status Dates Dr. Kb Sears MD Primary Care Provider Active Start: October 25, 2024 End: October 25, 2024 Dr. Kb Sears MD Attending Provider Active St art: October 25, 2024 End: October 25, 2024 Dr. Kb Sears MD Referring Provider Active St art: October 25, 2024 End: October 25, 2024 Team Status: Active Member Role/Relationship Status Dates Dr. Kb Sears MD Primary Care Provider Active Start: November 02, 2024 Dr. Kb Sears MD Attending Provider Active St art: November 02, 2024 Dr. Kb Sears MD Referring Provider Active St art: November 02, 2024 Team Status: Inactive Member Role/Relationship Status Dates Dr. Kb Sears MD Primary Care Provider Active Start: November 06, 2024 End: November 06, 2024 Dr. Kb Sears MD Referring Provider Active St art: November 06, 2024 End: November 06, 2024 Dr. Mando Hall MD Attending Provider Active Start: November 06, 2024 End: November 06, 2024 Team Status: Inactive Member Role/Relationship Status Dates Dr. Kb Sears MD Primary Care Provider Active Start: November 02, 2024 End: November 02, 2024 Dr. Kb Sears MD Attending Provider Active St art: November 02, 2024 End: November 02, 2024 Dr. Kb Sears MD Referring Provider Active St art: November 02, 2024 End: November 02, 2024 Team Status: Inactive Member Role/Relationship Status Dates Dr. Kb Sears MD Primary Care Provider Active Start: November 16, 2024 End: November 16, 2024 Dr. Mando Hall MD Attending Provider Active Start: November 16, 2024 End: November 16, 2024 Dr. Mando Hall MD Referring Provider Active Start: November 16, 2024 End: November 16, 2024 (unrecognized sect ion and content) No Status Records Found INFORMATION SOURCE (unrecogn ized section and content) DATE CREATED AUTHOR 12/15/2024 [facility] FOR RECORDS PERTAINING TO PATIENTS WHO ARE OR HAVE BEEN ENROLLED IN A CHEMICAL DEPENDENCY/SUBSTANCEABUSE PROGRAM, SOME INFORMATION MAY BE OMITTED. This clinical summary was aggregated from multiple sources. Caution should be exercised in using it in the provision of clinical care. This summary normalizes information from multiple sources, and as a consequence, information in this document may materially change the coding, format and clinical context of patient data. In addition, data may be omitted in some cases. CLINICAL DECISIONS SHOULD BE BASED ON THE PRIMARY CLINICAL RECORDS. [facility] [facility] provides no warranty or guarantee of the accuracy or completeness of information in this document.
[2024-12-18] MEDS: Lactated Ringers 1,000 ML 15 ML IV (07:35)
--- NOTE | 2024-12-18 07:37 | PRE.ANES_ITS ---
ASA Classification* ASA Classification ASA Classification: 2 Assessment & Plan Anesthesia* Anesthesia Assessment Anesthesia Assessment: Discussed sedation and/or anesthesia options, risks, benefits, and alternatives with patient/parents/legal guardian/POA. Questions invited. The patient/parents/legal guardian/POA seems to understand and agrees to proceed with anesthesia plan. Reviewed the physical assessment, medical history, allergy history and patient home medications list prior to surgery/procedure/anesthetic and documented any changes. Performed airway and anesthesia risk assessments. Anesthesia Type Anesthesia Type: MAC History Source History Obtained from:: Patient and Chart Anesthesia Focused Assessment* Temperature: 97.1 F Pulse Rate: 62 Blood Pressure: 133/85 Respiratory Rate: 16 Pulse Ox: 98 Oxygen Delivery Method: Room Air Airway Assessment Mouth opens: >3 cm Mallampati Score: III Teeth Condition: Intact Neck Range of motion (ROM): Limited ROM (Slight Decrease) Labs Anesthesia Preop lab: CBC WBC 7.1 K/mm3 (4.4-11.0) 04/09/24 08:24 04/09/24 RBC 5.31 M/mm3 (4.6-6.2) 04/09/24 08:24 04/09/24 Hgb 14.2 g/dL (13.0-16.5) 04/09/24 08:24 04/09/24 Hct 43.2 % (40-54) 04/09/24 08:24 04/09/24 Plt Count 249 K/mm3 (150-450) 04/09/24 08:24 04/09/24 CHEMISTRY Potassium 4.0 mmol/L (3.3-5.1) 10/25/24 09:51 10/25/24 Sodium 136 mmol/L (133-145) 10/25/24 09:51 10/25/24 BUN 15 mg/dL (4-19) 10/25/24 09:51 10/25/24 Creatinine 1.14 mg/dL (0.70-1.20) 10/25/24 09:51 10/25/24 Glucose 117 mg/dL (70-99) H 10/25/24 09:51 10/25/24 POC Glucose 113 mg/dL (70-110) H 07/25/20 06:54 07/25/20 TSH 1.800 uIU/mL (0.300-4.200) 10/25/24 09:51 07/2 07/27 COAG Lab additional comments: Fingerstick blood sugar was 148 at 740am. 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 When Was Last Pacemaker Check QUESTION #4 FULL TEXT: You/Your Family Experience fever (hyperthermia) with Anesthesia Last Oral Intake Last Oral intake: Last Oral Intake NPO since 21:00 12/18/24 07:19 Meds taken in AM with sips of Yes 12/18/24 07:19 water? Meds patient instructed to 0530 12/18/24 07:19 take am of surgery Any additional information?: Yes Meds taken in AM with sips of water?: Yes Meds patient instructed to take am of surgery: Amlodipine, irbesartan. PONV PONV - rn new graduate: PONV - rn new graduate Female No 12/13/24 16:38 HX of Motion Sickness No 12/13/24 16:38 HX of N/V After Surgery No 12/13/24 16:38 Non-Smoker Yes 12/13/24 16:38 Duration of Surgery greater No 12/13/24 16:38 than 60 minutes Number of Risk Factors 1 12/13/24 16:38 PONV Score Low Risk 12/13/24 16:38 Height & Weight Height & Weight: Anesthesia: Height & Weight Height 6 ft 0.83 in 12/18/24 07:19 Weight: 116.3 kg 12/18/24 07:19 Body Mass Index (BMI) 34.0 12/18/24 07:19 Respiratory Assessment Respiratory Assessment - rn new graduate: Respiratory Tract Infection Hx - rn new graduate Hx Respiratory Tract Infection No 12/13/24 16:38 STOP Sleep Apnea STOP Sleep Apnea - rn new graduate: STOP Sleep Apnea - rn new graduate Hx Hypertension Yes: PER PT, CONTROLLED ON 12/13/24 16:38 MEDS Hx Sleep Apnea No 12/13/24 16:38 CPAP BIPAP Do you snore loudly (louder No 12/13/24 16:38 than talking or can be heard Do you often feel tired/ No 12/13/24 16:38 fatigued/ sleepy during daytime? Has anyone observed you stop No 12/13/24 16:38 breathing during sleep? STOP Results Negative 12/13/24 16:38 QUESTION #5 FULL TEXT : Do you snore loudly (louder than talking or can be heard through closed doors)? Tobacco Use History Tobacco Use History - rn new graduate: Tobacco Use History - rn new graduate Tobacco Use Smoking Status Never smoker 12/13/24 16:38 Hx Tobacco Use No 12/13/24 16:38 Years Smoking Packs Smoked per Day Smoking Cessation Date was within the last 15 years Hx Smoking Cessation Date Hx Smoking Cessation Counseling Hematologic Medial History Hematologic Hx - rn new graduate: Hematologic Medical Hx - director database Hx of Blood Transfusion No 12/13/24 16:38 Hx of Transfusion in last 3 No 12/13/24 16:38 Months Date of Last Transfusion (if within last 3 months) Ever experience any problems No 12/13/24 16:38 with transfusion(s)? Specify any problems Hx of Preganancy in last 3 N/A 12/13/24 16:38 Months Nurse Filling Out Transfusion [id number] 12/13/24 16:38 & Questions: Date: 12/13/24 12/13/24 16:38 Time: 16:40 12/13/24 16:38 Patient unable to answer at this time (ie. confused, unrespo /Reproduction History /Reproductive History - rn new graduate: /Reproductive Hx- rn new graduate Hx Now No 12/13/24 16:38 Gestational Age (in weeks): EDC: Hx Hx Para Hx Section SAB No 12/13/24 16:38 Active Medications Active Medications: Current Medications Generic Name Dose Route Start Last Admin Trade Name Freq PRN Reason Stop Dose Admin Lactated Ringer's 1,000 mls @ 15 mls/hr 12/18/24 07:15 12/18/24 07:35 IV 15 mls/hr .Q48H EDD Administration PFSH Medical History Wears glasses Anxiety Alcohol use Difficulty swallowing Gastric reflux Non-smoker Hypertension Leg cramps History of stress test History of echocardiogram Cardiology follow-up encounter Type 2 diabetes mellitus GERD (gastroesophageal reflux disease) LBBB (left bundle branch block) Nonrheumatic mitral (valve) prolapse Hyperlipidemia Home Medications ?Medication ?Instructions ?Recorded ?Last Taken ?Type escitalopram oxalate 5 mg tablet 5 mg PO DAILY 8 Unknown History multivitamin 1 tab PO QDAY 09/28/17 Unkno wn History metformin 500 mg tablet 500 mg PO BID 11/10/18 Unkno wn History atorvastatin 10 mg tablet 10 mg PO .COMPLEX 12/14/21 U nknown History irbesartan 75 mg tablet 75 mg PO DAILY 12/14/2112/03 05:30 History amlodipine 2.5 mg tablet 2.5 mg PO QDAY 04/06/2412/03 05:30 History cetirizine 10 mg capsule (All Day 10 mg PO QDAY PRN al lergy symptoms 04/06/24 Unknown History Allergy (cetirizine)) sildenafil 50 mg tablet 50 mg PO QDAY PRN ED 5 Unknown History indapamide 1.25 mg tablet 1.25 mg PO DAILY 12/13/24 Un known History Allergy/AdvReac Type Severity Reaction Status Date / Time hydrocodone bitartrate (From Allergy Swelling Verified 12/13/24 16:33 Vicodin) oxycodone HCl (From Percocet) Allergy Other Verified 12/13/24 16:33 minocycline AdvReac Unknown Unknown Verified 12/13/24 16:33 Family History Mother Hypertension Father Hypertension Diabetes Presence of permanent cardiac pacemaker Surgical History History of esophagogastroduodenoscopy (EGD) History of colonoscopy History of cataract extraction History of surgery on lower extremity History of spinal surgery History of shoulder surgery History of inguinal hernia repair History of vasectomy Social History Smoking Status: Never smoker Review of Systems (Anesthesia) ROS Narrative System reviewed and no additional complaints, except as documented.
--- NOTE | 2024-12-18 07:58 | HP.PCM_ITS ---
History and Physical Date of Admission: 12/18/24 Intake Vital Signs 04/06/2507:54 11/06/2512:36 Height 6 ft 1 in 6 ft 1 in Weight: 264 lb 260 lb 8 oz BMI 34.8 34.3 BP 136/85 H 152/88 H Blood Pressure Location Lt brachial Lt brachial Position Sitting Sitting Respiration 16 18 Pulse 70 60 Pulse Source NIBP Monitor Temp 97.2 F L Temp Source Temporal Pulse Oximetry (%) 100 Oxygen Delivery Method room air Intake Visit Reasons: Dysphagia Chief Complaint: dysphagia Is patient in pain?: No Allergies hydrocodone bitartrate (From Vicodin) Allergy (Verified 11/06/24 13:36) Swellingoxycodone HCl (From Percocet) Allergy (Verified 11/06/24 13:36) Otherminocycline Adverse Reaction (Unknown, Verified 11/06/24 13:36) Unknown Medications ?Medication ?Instructions ?Recorded ?Confirmed ?Type escitalopram oxalate 5 mg tablet 5 mg PO DAILY 08/13/17 11/06/24 History multivitamin 1 tab PO QDAY 09/28/17 11/06/24 History metformin 500 mg tablet 500 mg PO BID 11/10/18 11/06/24 History atorvastatin 10 mg tablet 10 mg PO .COMPLEX 12/14/21 11/06/24 Hist ory irbesartan 75 mg tablet 75 mg PO DAILY 12/14/21 11/06/24 History amlodipine 2.5 mg tablet 2.5 mg PO QDAY 04/06/24 11/06/24 History cetirizine 10 mg capsule (All Day 10 mg PO QDAY PRN 04/06/24 11/06/24 Hist ory Allergy (cetirizine)) sildenafil 50 mg tablet 50 mg PO QDAY PRN 04/06/24 11/06/24 Hist ory PFSH Medical History Type 2 diabetes mellitus GERD (gastroesophageal reflux disease) LBBB (left bundle branch block) Nonrheumatic mitral (valve) prolapse Hyperlipidemia Surgical History History of surgery on lower extremity History of spinal surgery History of shoulder surgery History of inguinal hernia repair History of vasectomy Family History Mother HypertensionFather Hypertension Diabetes Presence of permanent cardiac pacemaker Social History Smoking Status: Never smoker HPI HPI HPI: Patient is a 64-year-old male here with dysphagia. He reports he had esophageal dilation about 10 years ago and his symptoms have returned. He does however say that it feels very painful when it happens and it is in the middle of his chest. He said sometimes is difficult to breathe or talk when he has these attacks. He says this happens at least weekly if not more frequently. He feels like it happens when he tries to eat too quickly or if he has poultry. ROS General General: No weight change, appetite, fatigue, colon cancer, breast cancer or weakness HEENT HEENT: Yes difficulty swallowing and eye surgery; No eye injury, swollen glands or hoarseness Endo Endocrine: Yes diabetes mellitus; No thyroid disease, thyroid cancer, Hair loss, heat intolerance or cold intolerance Skin Skin: No rash or changing moles Musc Musculoskeletal: Yes back problems; No arthritis, rheumatoid arthritis, gout or joint pain Cardio Cardiovascular: Yes murmur and high blood pressure; No pacemaker, heart disease, atrial fibrillation, heart attack, heart stent, palpitations, shortness of breath with exertion or chest pain Psych Psychiatric: Yes anxiety; No depression or hearing voices Resp Respiratory: No shortness of breath, No sleep apnea, No cough, No COPD, No asthma, No emphysema and No wheezing Gastro Gastrointestinal: No abdominal pain, No nausea or vomiting, No diarrhea, No constipation, No blood in stool, No acid reflux, No hemorrhoids, No ulcers, No gallbladder problem and No black,tarry stools [place]o Hematologic: No blood thinners, No blood disorders, No bleeding, No anemia and No blood clots Neuro Neurologic: No numbness, No tingling and No weakness Exam Const General: cooperative Orientation: alert and oriented x3 HENMT Head: normal to inspection Neck Neck: normal visual inspection and full ROM Chest Chest palpation & inspection: normal inspection of the chest Resp Effort & Inspection: normal respiratory effort Auscultation: clear to auscultation bilaterally Cardio Rate: regular rate Rhythm: regular rhythm GI Inspection: non-distended Palpation: soft and nontender Skin General: no rashes or lesions noted Neuro General: patient alert and patient oriented x3 Extrem General: full ROM Psych Appearance: grossly normal Mental Status: mental status grossly normal Assessment and Plan Assessment and Plan (1) Dysphagia: Plan: The patient has dysphagia and reports that he has spasming of his esophagus that happens with eating. He had an upper GI which showed intermittent spasming of the mid to distal esophagus as well as reflux. I discussed with him that dilation might not be the answer and he might be having diffuse esophageal spasm as the spasms were noted on upper GI and he is experiencing a lot of pain when these attacks happen. It does not seem like painless dysphagia. I would like to start with manometry to evaluate for nutcracker esophagus versus KIRT and to evaluate the swallowing mechanism. If the manometry is normal I will proceed with EGD with dilation. Mando Hall MD Pager: [facility] [address] [place] [address], [address] [place] [phone] Office: The manometry was normal. I will proceed with a EGD with possible dilation. I explained endoscopy in detail to the patient. I explained the risks including but not limited to stroke or heart attack with anesthesia, perforation of the GI tract, bleeding, infection. I explained that any of these could necessitate further emergency surgery. The patient understands and all questions were answered sufficiently. The patient wishes to proceed with procedure. I have examined the patient and the H&P has been reviewed. There are no clinical changes since date of exam.
--- NOTE | 2024-12-18 08:20 | OP.EGD_ITS ---
Patient Name: Zak Kellogg Procedure Date: 12/18/2024 8:05 AM Date of : 1960 Age: 64 Procedure: Upper GI endoscopy Indications: Dysphagia Providers: Mando Hall MD Referring MD: Kb Sears Medicines: Propofol per Anesthesia Patient Profile: This is a 64 year old male. Refer to note in patient chart for documentation of history and physical. Complications: No immediate complications. Procedure: Pre-Anesthesia Assessment: - Prior to the procedure, a History and Physical was performed, and patient medications and allergies were reviewed. The patient's tolerance of previous anesthesia was also reviewed. The risks and benefits of the procedure and the sedation options and risks were discussed with the patient. All questions were answered, and informed consent was obtained. Prior Anticoagulants: The patient has taken no anticoagulant or antiplatelet agents. After reviewing the risks and benefits, the patient was deemed in satisfactory condition to undergo the procedure. After obtaining informed consent, the endoscope was passed under direct vision. Throughout the procedure, the patient's blood pressure, pulse, and oxygen saturations were monitored continuously. The Endoscope was introduced through the mouth, and advanced to the second part of duodenum. The upper GI endoscopy was accomplished without difficulty. The patient tolerated the procedure well. Scope In: 8:11:10 AM Scope Out: 8:17:26 AM Total Procedure Duration Time 0 hours 6 minutes 16 seconds Findings: One benign-appearing, intrinsic mild stenosis was found at the gastroesophageal junction. This stenosis measured less than one cm (in length). The stenosis was traversed. A TTS dilator was passed through the scope. Dilation with a 15-16.5-18 mm balloon dilator was performed to 19 mm. The dilation site was examined following endoscope reinsertion and showed mild mucosal disruption. Estimated blood loss was minimal. The esophagus was normal. The stomach was normal. The examined duodenum was normal. Impression: - Benign-appearing esophageal stenosis. Dilated. - Normal esophagus. - Normal stomach. - Normal examined duodenum. - No specimens collected. Recommendation: - Discharge patient to home. - Resume previous diet. - Continue present medications. - Return to my office in 2 weeks. Procedure Code(s): --- Professional --- 79363, Esophagogastroduodenoscopy, flexible, transoral; with transendoscopic balloon dilation of esophagus (less than 30 mm diameter) Diagnosis Code(s): --- Professional --- K22.2, Esophageal obstruction R13.10, Dysphagia, unspecified CPT copyright 2021 [employer]. All rights reserved. The codes documented in this report are preliminary and upon children's librarian review may be revised to meet current compliance requirements. Mando Hall MD 12/18/2024 8:20:19 AM This report has been signed electronically. Number of Addenda: 0 Note Initiated On: 12/18/2024 8:05 AM
--- NOTE | 2024-12-18 08:21 | OP.PROVAT_ITS ---
12/18/2024 Kb Sears [address] [place] [address] Re : Upper GI endoscopy procedure for Zak Kellogg Dear Dr. Sears This procedure was performed on Wednesday, December 18, 2024. My impressions and recommendations are as follows: Impressions : - Benign-appearing esophageal stenosis. Dilated. - Normal esophagus. - Normal stomach. - Normal examined duodenum. - No specimens collected. Recommendations : - Discharge patient to home. - Resume previous diet. - Continue present medications. - Return to my office in 2 weeks. My findings are described in the full procedure note, which is enclosed. If I can be of further assistance, please feel free to contact me at Doctor phone number(s): , Work: . Sincerely, Mando Hall MD 12/18/2024 8:20:19 AM This report has been signed electronically.
--- NOTE | 2024-12-18 08:26 | PCM.POST.ANE ---
Anesthesia: Postop Eval I Current Vital Signs Temperature: 97 F Pulse Rate: 64 Blood Pressure: 97/56 Respiratory Rate: 16 Pulse Ox: 96 Assessment Airway patent: Yes Spontaneous unlabored respirations: Yes nausea: No Vomiting: No Anesthesia Complication: No Fluid Hydration Crystalloid volume administer (ml): 500 Total IV fluid infused: 500 Progress Note Anesthesia document: Postop Eval 1 completed: Yes
--- NOTE | 2024-12-18 08:46 | POSTOPAN2_ITS ---
Anesthesia Postop Eval I Sum Postop Eval Completion status Anesthesia document: Postop Eval 1 completed: Yes Anesthesia Postop Eval I Summary Anesthesia Postop Eval I Summary: Anesthesia Postop Eval I: Assessment Summary Airway patent Yes 12/18/24 08:26 [email or web address] Spontaneous unlabored Yes 12/18/24 08:26 [email or web address] respirations Mental status nausea No 12/18/24 08:26 [email or web address] Vomiting No 12/18/24 08:26 [email or web address] Anesthesia Postop Eval I: Fluid Summary Crystalloid volume administer 500 12/18/24 08:26 [email or web address] (ml) Colloids volume administered ( ml) Blood Product volume administered (ml) Total IV fluid infused 500 12/18/24 08:26 [email or web address] Anesthesia Postop Eval I: Summary Notes Anesthesia Complication No 12/18/24 08:26 [email or web address] Anesthesia Complication Comment: Post-operative progress note Anesthesia: Postop Eval II Evaluation Mental status: Awake and Calm Pain Level: 0 nausea: No Vomiting: No Complications Anesthesia Complication: No
--- NOTE | 2024-12-18 08:46 | PCM.POSTANE2 ---
Anesthesia Postop Eval I Sum Postop Eval Completion status Anesthesia document: Postop Eval 1 completed: Yes Anesthesia Postop Eval I Summary Anesthesia Postop Eval I Summary: Anesthesia Postop Eval I: Assessment Summary Airway patent Yes 12/18/24 08:26 PAINT [email or web address] Spontaneous unlabored Yes 12/18/24 08:26 PAINT [email or web address] respirations Mental status nausea No 12/18/24 08:26 PAINT [email or web address] [email or web address] Vomiting No 12/18/24 08:26 [email or web address] [email or web address] Anesthesia Postop Eval I: Fluid Summary Crystalloid volume administer 500 12/18/24 08:26 [email or web address] (ml) Colloids volume administered ( ml) Blood Product volume administered (ml) Total IV fluid infused 500 12/18/24 08:26 [email or web address] Anesthesia Postop Eval I: Summary Notes Anesthesia Complication No 12/18/24 08:26 [email or web address] [email or web address] Anesthesia Complication Comment: Post-operative progress note Anesthesia: Postop Eval II Evaluation Mental status: Awake and Calm Pain Level: 0 nausea: No Vomiting: No Complications Anesthesia Complication: No
== END 2024-12-18 09:03 | disposition home or self-care (01) ==
LOC: EN 06:58 → AC 06:58
PROVIDERS: PCP Family Medicine; Referring Provider Family Medicine; Visit Provider Surgery
PROC: 0DJ08ZZ Inspection of Upper Intestinal Tract, Via Natural or Artificial Opening Endoscopic (ICD-10-PCS; CPT 43235; principal; 2024-12-18 07:55)
DX: R13.10 Dysphagia, unspecified (principal); E11.9 Type 2 diabetes mellitus without complications; E78.5 Hyperlipidemia, unspecified; K22.2 Esophageal obstruction; Z79.84 Long term (current) use of oral hypoglycemic drugs; Z79.899 Other long term (current) drug therapy; Z98.52 Vasectomy status
CPT/HCPCS: 43249; 82962; J2405